=== PATIENT | male | born 1950 | race Caucasian/White ===

== ENCOUNTER → 2018-05-26 10:51 | Outpatient (CLI) | payer MEDICARE, OTHER, SELFPAY ==
[2018-05-26 11:59] LABS: Alanine Aminotransferase 20 IU/L (21-72); Albumin 4.7 g/dL (3.5-5.0); Albumin Globulin Ratio 1.1 (1.0-2.8); Alkaline Phosphatase 107 U/L (38-126); Aspartate Aminotransferase 28 IU/L (17-59); Bilirubin Total 0.3 mg/dL (0.2-1.3); Bilirubin Unconjugated 0.1 mg/dL (0.0-1.1); Globulin 4.4 g/dL (1.7-4.1); HEMOLYSIS < 15 (0-50); Total Protein 9.1 g/dL (6.3-8.2)
== END ==
PROVIDERS: Family Provider Internal Medicine; PCP Internal Medicine; Visit Provider Internal Medicine Critical Care Medicine
DX: Z79.899 Other long term (current) drug therapy (principal); J84.9 Interstitial pulmonary disease, unspecified
CPT/HCPCS: 36415; 80076

== ENCOUNTER → 2018-06-16 09:04 | Outpatient (CLI) | payer MEDICARE, OTHER, SELFPAY ==
[2018-06-19 12:57] LABS: Lipoprofile NMR SEE SEPERATE REPORT
== END ==
PROVIDERS: Family Provider Internal Medicine; PCP Internal Medicine; Visit Provider Specialist
DX: E78.5 Hyperlipidemia, unspecified (principal); I25.10 Atherosclerotic heart disease of native coronary artery without angina pectoris
CPT/HCPCS: 36415; 83704

== ENCOUNTER → 2018-06-26 09:40 | Outpatient (CLI) | payer MEDICARE, OTHER, SELFPAY ==
[2018-06-26 10:33] LABS: Alanine Aminotransferase 27 IU/L (21-72); Albumin 4.2 g/dL (3.5-5.0); Albumin Globulin Ratio 1.2 (1.0-2.8); Alkaline Phosphatase 92 U/L (38-126); Aspartate Aminotransferase 32 IU/L (17-59); Bilirubin Total 0.4 mg/dL (0.2-1.3); Blood Urea Nitrogen 12 mg/dL (9-20); Calcium 9.1 mg/dL (8.4-10.2); Carbon Dioxide 28 mmol/L (22-32); Chloride 104 mmol/L (98-107); Estimated Glomerular Filt Rate > 60.0 mL/min (>60); Globulin 3.6 g/dL (1.7-4.1); Glucose 85 mg/dL (80-110); HEMOLYSIS < 15 (0-50); Potassium 3.9 mmol/L (3.4-5.1); Sodium 141 mmol/L (137-145); Total Protein 7.8 g/dL (6.3-8.2)
== END ==
PROVIDERS: Family Provider Internal Medicine; PCP Internal Medicine; Visit Provider Specialist
DX: I25.10 Atherosclerotic heart disease of native coronary artery without angina pectoris (principal)
CPT/HCPCS: 36415; 80053

== ENCOUNTER → 2018-07-17 11:53 | Outpatient (CLI) | payer MEDICARE, OTHER, SELFPAY ==
[2018-07-17 13:00] LABS: Alanine Aminotransferase 29 IU/L (21-72); Albumin 4.5 g/dL (3.5-5.0); Albumin Globulin Ratio 1.3 (1.0-2.8); Alkaline Phosphatase 78 U/L (38-126); Aspartate Aminotransferase 26 IU/L (17-59); Bilirubin Total 0.3 mg/dL (0.2-1.3); Bilirubin Unconjugated 0.1 mg/dL (0.0-1.1); Globulin 3.5 g/dL (1.7-4.1); HEMOLYSIS < 15 (0-50)
== END ==
PROVIDERS: PCP Internal Medicine; Visit Provider Internal Medicine Critical Care Medicine
DX: J84.9 Interstitial pulmonary disease, unspecified (principal)
CPT/HCPCS: 36415; 80076

== ENCOUNTER → 2018-08-15 11:50 | Outpatient (CLI) | payer MEDICARE, OTHER, SELFPAY ==
[2018-08-15 12:53] LABS: Alanine Aminotransferase 29 IU/L (21-72); Albumin 4.4 g/dL (3.5-5.0); Albumin Globulin Ratio 1.2 (1.0-2.8); Alkaline Phosphatase 82 U/L (38-126); Aspartate Aminotransferase 25 IU/L (17-59); Bilirubin Total 0.4 mg/dL (0.2-1.3); Bilirubin Unconjugated 0.2 mg/dL (0.0-1.1); Globulin 3.7 g/dL (1.7-4.1); HEMOLYSIS < 15 (0-50); Total Protein 8.1 g/dL (6.3-8.2)
== END ==
PROVIDERS: PCP Internal Medicine; Visit Provider Internal Medicine Critical Care Medicine
DX: Z79.899 Other long term (current) drug therapy (principal); J84.9 Interstitial pulmonary disease, unspecified
CPT/HCPCS: 36415; 80076

== ENCOUNTER → 2018-09-16 13:40 | Outpatient (CLI) | payer MEDICARE, OTHER, SELFPAY ==
[2018-09-16 14:52] LABS: Alanine Aminotransferase 26 IU/L (21-72); Albumin 4.5 g/dL (3.5-5.0); Albumin Globulin Ratio 1.3 (1.0-2.8); Alkaline Phosphatase 89 U/L (38-126); Aspartate Aminotransferase 28 IU/L (17-59); Bilirubin Total 0.4 mg/dL (0.2-1.3); Bilirubin Unconjugated 0.2 mg/dL (0.0-1.1); Globulin 3.5 g/dL (1.7-4.1); HEMOLYSIS 22 (0-50)
== END ==
PROVIDERS: Family Provider Internal Medicine; PCP Internal Medicine; Visit Provider Internal Medicine Critical Care Medicine
DX: Z79.899 Other long term (current) drug therapy (principal); J84.9 Interstitial pulmonary disease, unspecified
CPT/HCPCS: 36415; 80076

== ENCOUNTER → 2018-10-15 11:42 | Outpatient (CLI) | payer MEDICARE, OTHER, SELFPAY ==
[2018-10-15 12:33] LABS: Alanine Aminotransferase 27 IU/L (21-72); Albumin 4.6 g/dL (3.5-5.0); Albumin Globulin Ratio 1.2 (1.0-2.8); Alkaline Phosphatase 114 U/L (38-126); Aspartate Aminotransferase 31 IU/L (17-59); Bilirubin Total 0.4 mg/dL (0.2-1.3); Bilirubin Unconjugated 0.3 mg/dL (0.0-1.1); Globulin 3.8 g/dL (1.7-4.1); HEMOLYSIS < 15 (0-50); Total Protein 8.4 g/dL (6.3-8.2)
== END ==
PROVIDERS: Family Provider Internal Medicine; PCP Internal Medicine; Visit Provider Internal Medicine Critical Care Medicine
DX: J84.9 Interstitial pulmonary disease, unspecified (principal); Z79.899 Other long term (current) drug therapy
CPT/HCPCS: 36415; 80076

== ENCOUNTER → 2018-11-21 14:14 | Outpatient (CLI) | payer MEDICARE, OTHER, SELFPAY ==
[2018-11-21 15:49] LABS: Alanine Aminotransferase 19 IU/L (21-72); Albumin 4.4 g/dL (3.5-5.0); Albumin Globulin Ratio 1.2 (1.0-2.8); Alkaline Phosphatase 109 U/L (38-126); Aspartate Aminotransferase 25 IU/L (17-59); Bilirubin Total 0.4 mg/dL (0.2-1.3); Bilirubin Unconjugated 0.3 mg/dL (0.0-1.1); Globulin 3.6 g/dL (1.7-4.1); HEMOLYSIS < 15 (0-50)
== END ==
PROVIDERS: PCP Internal Medicine; Visit Provider Internal Medicine Critical Care Medicine
DX: J84.9 Interstitial pulmonary disease, unspecified (principal)
CPT/HCPCS: 36415; 80076

== ENCOUNTER → 2019-02-17 12:07 | Outpatient (CLI) | payer MEDICARE, OTHER, SELFPAY ==
[2019-02-17 12:36] LABS: Add Manual Diff / Slide Review NO; Basophils Absolute Auto 100 /uL (0-100); Eosinophils Absolute Auto 300 /uL (0-450); Eosinophils Percent Auto 3.3 % (2-4); Hematocrit 43.8 % (41-53); Hemoglobin 14.8 g/dL (13.5-17.5); Lymphocytes Absolute Auto 2600 /uL (1100-4500); Lymphocytes Percent Auto 26.1 % (25-40); Mean Corpuscular HGB Conc 33.9 % (30-36); Mean Corpuscular Hemoglobin 32.7 PG (26-34); Mean Corpuscular Volume 96.3 fL (80-100); Monocytes Absolute Auto 900 /uL (0-900); Monocytes Percent Auto 9.3 % (3-14); Neutrophils Absolute Auto 6100 /uL (1500-7000); Neutrophils Percent Auto 60.3 % (50-75); Platelet Count 263 X10^3/uL (150-400); Red Blood Cell Count 4.54 X10^6/uL (4.5-5.9); Red Cell Distribution Width 14.3 % (11.6-14.8)
[2019-02-17 13:25] LABS: Alanine Aminotransferase 22 IU/L (21-72); Albumin 4.4 g/dL (3.5-5.0); Albumin Globulin Ratio 1.2 (1.0-2.8); Alkaline Phosphatase 102 U/L (38-126); Aspartate Aminotransferase 28 IU/L (17-59); BUN Creatinine Ratio 12.2 (6-22); Bilirubin Total 0.5 mg/dL (0.2-1.3); Bilirubin Unconjugated 0.2 mg/dL (0.0-1.1); Blood Urea Nitrogen 11 mg/dL (9-20); Calcium 9.9 mg/dL (8.4-10.2); Carbon Dioxide 29 mmol/L (22-32); Chloride 101 mmol/L (98-107); Estimated Glomerular Filt Rate > 60.0 mL/min (>60); Globulin 3.7 g/dL (1.7-4.1); Glucose 90 mg/dL (80-110); HEMOLYSIS < 15 (0-50); Potassium 4.2 mmol/L (3.4-5.1); Sodium 140 mmol/L (137-145); Total Protein 8.1 g/dL (6.3-8.2)
[2019-02-19 08:21] LABS: Lipoprofile NMR SEE SEPERATE REPORT
== END ==
PROVIDERS: Family Provider Internal Medicine Critical Care Medicine; PCP Internal Medicine; Visit Provider Specialist
DX: Z79.899 Other long term (current) drug therapy (principal); J84.9 Interstitial pulmonary disease, unspecified; I25.10 Atherosclerotic heart disease of native coronary artery without angina pectoris; R00.1 Bradycardia, unspecified; E78.2 Mixed hyperlipidemia
CPT/HCPCS: 36415; 80053; 80076; 83704; 85025

== ENCOUNTER → 2019-03-24 11:53 | Outpatient (CLI) | payer MEDICARE, OTHER, SELFPAY ==
[2019-03-24 13:48] LABS: Alanine Aminotransferase 17 IU/L (21-72); Albumin 4.4 g/dL (3.5-5.0); Albumin Globulin Ratio 1.2 (1.0-2.8); Alkaline Phosphatase 105 U/L (38-126); Aspartate Aminotransferase 28 IU/L (17-59); Bilirubin Total 0.6 mg/dL (0.2-1.3); Bilirubin Unconjugated 0.4 mg/dL (0.0-1.1); Globulin 3.6 g/dL (1.7-4.1); HEMOLYSIS < 15 (0-50)
== END ==
PROVIDERS: PCP Internal Medicine; Visit Provider Internal Medicine Critical Care Medicine
DX: Z79.899 Other long term (current) drug therapy (principal); J84.9 Interstitial pulmonary disease, unspecified
CPT/HCPCS: 36415; 80076

== ENCOUNTER → 2019-03-27 10:43 | Outpatient (CLI) | payer MEDICARE, OTHER, SELFPAY ==
--- NOTE | 2019-03-27 | DI.NM.S_ITS ---
PROCEDURE: NM TOLU PERF SPECT R&S PHARM Rest and pharmacological stress myocardial perfusion SPECT with gated imaging and ejection fraction RADIOPHARMACEUTICAL: 27.1 mCi Tc-99m tetrafosmin IV at rest and 24.9 mCi Tc-99m tetrafosmin IV at peak effect of pharmacological stress. Qfb-[id number]-[id number] was performed. INDICATIONS: Atherosclerotic heart disease of [place] coronary artery TECHNIQUE: Radiopharmaceutical was injected at peak stress test, and also at rest. SPECT images were obtained. SPECT myocardial perfusion images were displayed in short axis, horizontal long axis, and vertical long axis views. Gated images were reviewed using [employer] software. COMPARISON: None. CARDIAC STRESS: A pharmacologic stress test was performed under the supervision of an attending staff, using an infusion of lexiscan 0.4mg IV X1. Hemodynamic data: There is normal blood pressure and heart rate response to pharmacologic stress. Symptoms: The patient denied anginal chest pain. Aminophylline: none EKG: No diagnostic changes of ischemia; no ectopy. FINDINGS: Raw data: There is good myocardial uptake of radiotracer. No significant motion artifacts. Mval-we-gsasi ratio is 0.28 (normal is less than 0.38 for tetrafosmin tracer). Left ventricle function: Gated images demonstrate normal left ventricular wall thickening. No segmental wall motion abnormalities. No transient ischemic dilation; TID is 0.88 (normal less than 1.3). Left ventricle resting end diastolic volume is 76 mL. Left ventricle stress ejection fraction is 78%; normal range is above 45%. Myocardial perfusion: There is normal distribution of activity in the right and left ventricular myocardium. No fixed or reversible perfusion defects. IMPRESSION: low risk, normal pharmaceutical nuclear stress test 1) No perfusion evidence of ischemia or infarction. 2) Normal left ventricular size, wall motion, and systolic function (EF post stress 78%). 3) No ECG evidence of ischemia. 4) No angina during the study. 5) No prior nuclear stress test available for comparison. Dictated by: Regina March MD on 03/30/2019 at 12:29 Approved by: Regina March MD on 03/30/2019 at 12:31
--- NOTE | 2019-03-27 14:42 | P.PCN_ITS ---
Cardiac Stress Test Report Referral & Results Date Patient Seen: 03/27/19 Time Patient Seen: 12:00 Requesting provider: Selene Partida Indication: Coronary artery disease Rest ECG: Normal sinus rhythm Procedure Note: After both written and verbal informed consent the patient had an IV started by the diagnostic imaging RN and then was hooked up to the treadmill monitoring system. The patient was placed on the treadmill at 1 mile an hour with no elevation and was then injected with the Ev scan material. The Cardiolite was then immediately administered. The patient spent an additional 2-3 minutes on the treadmill before being returned to the [facility] in the supine position. The patient had a normal response to all infused materials. Impression: Successful Ev protocol. Will await perfusion imaging. Please note: Actual ECG tracings can be found in the PACS system.
== END ==
PROVIDERS: PCP Internal Medicine; Visit Provider Nurse Practitioner
DX: I25.10 Atherosclerotic heart disease of native coronary artery without angina pectoris (principal)
CPT/HCPCS: 78452; 93016; 93017; 93018; A9502; J2785

== ENCOUNTER → 2019-04-24 11:32 | Outpatient (CLI) | payer MEDICARE, OTHER, SELFPAY ==
[2019-04-24 13:21] LABS: Alanine Aminotransferase 21 IU/L (<50); Albumin 4.6 g/dL (3.5-5.0); Albumin Globulin Ratio 1.3 (1.0-2.8); Alkaline Phosphatase 99 U/L (38-126); Aspartate Aminotransferase 30 IU/L (17-59); Bilirubin Total 0.4 mg/dL (0.2-1.3); Bilirubin Unconjugated 0.3 mg/dL (0.0-1.1); Globulin 3.5 g/dL (1.7-4.1); HEMOLYSIS < 15 (0-50); Total Protein 8.1 g/dL (6.3-8.2)
== END ==
PROVIDERS: PCP Internal Medicine; Visit Provider Internal Medicine Critical Care Medicine
DX: Z79.899 Other long term (current) drug therapy (principal)
CPT/HCPCS: 36415; 80076

== ENCOUNTER → 2019-06-11 14:14 | Outpatient (CLI) | payer MEDICARE, OTHER, SELFPAY ==
[2019-06-11 15:52] LABS: Alanine Aminotransferase 24 IU/L (<50); Albumin 4.7 g/dL (3.5-5.0); Albumin Globulin Ratio 1.3 (1.0-2.8); Alkaline Phosphatase 106 U/L (38-126); Aspartate Aminotransferase 29 IU/L (17-59); Bilirubin Total 0.3 mg/dL (0.2-1.3); Bilirubin Unconjugated 0.2 mg/dL (0.0-1.1); Globulin 3.6 g/dL (1.7-4.1); HEMOLYSIS < 15 (0-50); Total Protein 8.3 g/dL (6.3-8.2)
== END ==
PROVIDERS: PCP Internal Medicine; Visit Provider Internal Medicine Critical Care Medicine
DX: Z79.890 Hormone replacement therapy (principal)
CPT/HCPCS: 36415; 80076

== ENCOUNTER → 2019-07-13 14:50 | Outpatient (CLI) | payer MEDICARE, OTHER, SELFPAY ==
[2019-07-13 16:56] LABS: Alanine Aminotransferase 24 IU/L (<50); Albumin 4.1 g/dL (3.5-5.0); Albumin Globulin Ratio 1.2 (1.0-2.8); Alkaline Phosphatase 82 U/L (38-126); Aspartate Aminotransferase 29 IU/L (17-59); Bilirubin Total 0.3 mg/dL (0.2-1.3); Bilirubin Unconjugated 0.2 mg/dL (0.0-1.1); Globulin 3.5 g/dL (1.7-4.1); HEMOLYSIS < 15 (0-50); Total Protein 7.6 g/dL (6.3-8.2)
== END ==
PROVIDERS: PCP Internal Medicine; Referring Provider Internal Medicine Critical Care Medicine; Visit Provider Internal Medicine Critical Care Medicine
DX: Z79.890 Hormone replacement therapy (principal)
CPT/HCPCS: 36415; 80076

== ENCOUNTER → 2019-08-14 09:42 | Outpatient (CLI) | payer MEDICARE, OTHER, SELFPAY ==
[2019-08-14 10:50] LABS: Alanine Aminotransferase 14 IU/L (<50); Albumin 4.1 g/dL (3.5-5.0); Albumin Globulin Ratio 1.2 (1.0-2.8); Alkaline Phosphatase 83 U/L (38-126); Aspartate Aminotransferase 25 IU/L (17-59); Bilirubin Total 0.3 mg/dL (0.2-1.3); Bilirubin Unconjugated 0.3 mg/dL (0.0-1.1); Blood Urea Nitrogen 13 mg/dL (9-20); Calcium 9.9 mg/dL (8.4-10.2); Carbon Dioxide 27 mmol/L (22-32); Chloride 105 mmol/L (98-107); Estimated Glomerular Filt Rate > 60.0 mL/min (>60); Globulin 3.5 g/dL (1.7-4.1); Glucose 86 mg/dL (80-110); HEMOLYSIS < 15 (0-50); Potassium 4.9 mmol/L (3.4-5.1); Sodium 140 mmol/L (137-145); Total Protein 7.6 g/dL (6.3-8.2)
== END ==
PROVIDERS: PCP Internal Medicine; Referring Provider Internal Medicine Critical Care Medicine; Visit Provider Specialist
DX: E78.5 Hyperlipidemia, unspecified (principal); Z79.899 Other long term (current) drug therapy
CPT/HCPCS: 36415; 80053; 80076

== ENCOUNTER → 2019-08-25 07:55 | Outpatient (CLI) | payer MEDICARE, OTHER, SELFPAY ==
[2019-08-27 08:27] LABS: Cholesterol, Total 133 mg/dL (100-199); HDL-Cholesterol 24 mg/dL (>39); HDL-Particle (Total) 16.7 umol/L (>=30.5); Historical Reading Comment: (.); LDL Particle 1168 nmol/L (<1000); LDL Size 20.2 nm (>20.5); LDL-Cholsterol 77 mg/dL (0-99); LP-IR Score 59 (<=45); Small LDL- Particle 746 nmol/L (<=527); Triglycerides 160 mg/dL (0-149)
== END ==
PROVIDERS: PCP Internal Medicine; Referring Provider Specialist; Visit Provider Specialist
DX: E78.5 Hyperlipidemia, unspecified (principal)
CPT/HCPCS: 36415; 80061; 83704

== ENCOUNTER → 2020-01-21 12:23 | Outpatient (CLI) | payer MEDICARE, OTHER, SELFPAY ==
[2020-01-21 13:42] LABS: Alanine Aminotransferase 17 IU/L (<50); Albumin 4.4 g/dL (3.5-5.0); Albumin Globulin Ratio 1.3 (1.0-2.8); Alkaline Phosphatase 89 U/L (38-126); Aspartate Aminotransferase 30 IU/L (17-59); Bilirubin Total 0.5 mg/dL (0.2-1.3); Bilirubin Unconjugated 0.4 mg/dL (0.0-1.1); Globulin 3.4 g/dL (1.7-4.1); HEMOLYSIS < 15 (0-50); Total Protein 7.8 g/dL (6.3-8.2)
== END ==
PROVIDERS: PCP Internal Medicine; Referring Provider Internal Medicine Critical Care Medicine; Visit Provider Internal Medicine Critical Care Medicine
DX: Z79.899 Other long term (current) drug therapy (principal); J84.9 Interstitial pulmonary disease, unspecified
CPT/HCPCS: 36415; 80076

== ENCOUNTER → 2020-02-26 11:22 | Outpatient (CLI) | payer MEDICARE, OTHER, SELFPAY ==
[2020-02-28 15:35] LABS: COVID19 Sendout Not Detected (Not Detect)
== END ==
PROVIDERS: PCP Internal Medicine; Visit Provider Physician Assistant
DX: Z11.59 Encounter for screening for other viral diseases (principal)
CPT/HCPCS: 87635

== ENCOUNTER → 2020-02-26 11:37 | Outpatient (CLI) | payer MEDICARE, OTHER, SELFPAY ==
[2020-02-26 12:44] LABS: Alanine Aminotransferase 21 IU/L (<50); Albumin 4.4 g/dL (3.5-5.0); Albumin Globulin Ratio 1.2 (1.0-2.8); Alkaline Phosphatase 88 U/L (38-126); Aspartate Aminotransferase 30 IU/L (17-59); Bilirubin Total 0.5 mg/dL (0.2-1.3); Bilirubin Unconjugated 0.4 mg/dL (0.0-1.1); Globulin 3.8 g/dL (1.7-4.1); HEMOLYSIS < 15 (0-50); Total Protein 8.2 g/dL (6.3-8.2)
== END ==
PROVIDERS: PCP Internal Medicine; Referring Provider Internal Medicine Critical Care Medicine; Visit Provider Internal Medicine Critical Care Medicine
DX: Z11.59 Encounter for screening for other viral diseases (principal); J84.9 Interstitial pulmonary disease, unspecified; Z79.899 Other long term (current) drug therapy
CPT/HCPCS: 36415; 80076; 87635

== ENCOUNTER → 2020-05-11 09:43 | Outpatient (CLI) | payer MEDICARE, OTHER, SELFPAY ==
[2020-05-11 10:54] LABS: Alanine Aminotransferase 23 IU/L (<50); Albumin Globulin Ratio 1.1 (1.0-2.8); Alkaline Phosphatase 100 U/L (38-126); Aspartate Aminotransferase 36 IU/L (17-59); Bilirubin Total 0.6 mg/dL (0.2-1.3); Bilirubin Unconjugated 0.5 mg/dL (0.0-1.1); Globulin 4.4 g/dL (1.7-4.1); HEMOLYSIS < 15 (0-50); Total Protein 9.4 g/dL (6.3-8.2)
[2020-05-11 10:58] LABS: Alanine Aminotransferase 22 IU/L (<50); Albumin 4.8 g/dL (3.5-5.0); Albumin Globulin Ratio 1.1 (1.0-2.8); Alkaline Phosphatase 102 U/L (38-126); Aspartate Aminotransferase 35 IU/L (17-59); BUN Creatinine Ratio 13.5 (6-22); Bilirubin Total 0.6 mg/dL (0.2-1.3); Blood Urea Nitrogen 15 mg/dL (9-20); Calcium 10.3 mg/dL (8.4-10.2); Carbon Dioxide 30 mmol/L (22-32); Chloride 104 mmol/L (98-107); Estimated Glomerular Filt Rate > 60.0 mL/min (>60); Globulin 4.2 g/dL (1.7-4.1); Glucose 103 mg/dL (80-110); HEMOLYSIS < 15 (0-50); Sodium 141 mmol/L (137-145)
[2020-05-11 11:06] LABS: Potassium 5.4 mmol/L (3.4-5.1)
== END ==
PROVIDERS: PCP Internal Medicine; Referring Provider Internal Medicine Critical Care Medicine; Visit Provider Specialist
DX: J84.9 Interstitial pulmonary disease, unspecified (principal); E78.5 Hyperlipidemia, unspecified
CPT/HCPCS: 36415; 80053; 80061; 80076; 83704

== ENCOUNTER → 2020-06-27 09:52 | Outpatient (CLI) | payer MEDICARE, OTHER, SELFPAY ==
[2020-06-27 10:33] LABS: Alanine Aminotransferase 26 IU/L (<50); Albumin 4.4 g/dL (3.5-5.0); Albumin Globulin Ratio 1.2 (1.0-2.8); Alkaline Phosphatase 84 U/L (38-126); Aspartate Aminotransferase 33 IU/L (17-59); Bilirubin Total 0.3 mg/dL (0.2-1.3); Bilirubin Unconjugated 0.3 mg/dL (0.0-1.1); Globulin 3.6 g/dL (1.7-4.1); HEMOLYSIS < 15 (0-50)
== END ==
PROVIDERS: PCP Internal Medicine; Referring Provider Internal Medicine Critical Care Medicine; Visit Provider Internal Medicine Critical Care Medicine
DX: J84.9 Interstitial pulmonary disease, unspecified (principal)
CPT/HCPCS: 36415; 80076

== ENCOUNTER → 2020-07-06 14:02 | Outpatient (CLI) | payer MEDICARE, OTHER, SELFPAY ==
[2020-07-06] MEDS: COVID-19 VACC #1, MRNA(MOD) 100 MCG/0.5 ML VIAL IM (14:08)
== END ==
PROVIDERS: PCP Internal Medicine; Visit Provider Internal Medicine
DX: Z23 Encounter for immunization (principal)
CPT/HCPCS: 0011A; 91301

== ENCOUNTER → 2020-08-03 14:10 | Outpatient (CLI) | payer MEDICARE, OTHER, SELFPAY ==
[2020-08-03] MEDS: COVID-19 VACC #2, MRNA(MOD) 100 MCG/0.5 ML VIAL IM (14:14)
== END ==
PROVIDERS: PCP Internal Medicine; Visit Provider Internal Medicine
DX: Z23 Encounter for immunization (principal)
CPT/HCPCS: 0012A; 91301

== ENCOUNTER → 2020-08-25 14:03 | Outpatient (CLI) | payer MEDICARE, OTHER, SELFPAY ==
[2020-08-25 16:00] LABS: Alanine Aminotransferase 27 IU/L (<50); Albumin 4.3 g/dL (3.5-5.0); Albumin Globulin Ratio 1.4 (1.0-2.8); Alkaline Phosphatase 81 U/L (38-126); Aspartate Aminotransferase 36 IU/L (17-59); Bilirubin Total 0.3 mg/dL (0.2-1.3); Bilirubin Unconjugated 0.2 mg/dL (0.0-1.1); HEMOLYSIS < 15 (0-50); Total Protein 7.3 g/dL (6.3-8.2)
== END ==
PROVIDERS: PCP Internal Medicine; Referring Provider Internal Medicine Critical Care Medicine; Visit Provider Internal Medicine Critical Care Medicine
DX: J84.9 Interstitial pulmonary disease, unspecified (principal); Z79.899 Other long term (current) drug therapy
CPT/HCPCS: 36415; 80076

== ENCOUNTER 2020-09-17 15:14 | Emergency (ER) | payer MEDICARE, OTHER, SELFPAY ==
[2020-09-17 15:28] VITALS: BP 123/73; PULSE 68; RESP 18; TEMP 36.3; O2SAT 96
[2020-09-17] MEDS: TET,DIPH,PERTUSS(ACELL),VAC/PF 0.5 ML SYRINGE IM (18:07)
--- NOTE | 2020-09-17 18:07 | ED.WOUNDLAC ---
HPI - Wound/Laceration General Chief Complaint: Wound/Laceration Stated Complaint: chain saw injury, left hand Time Seen by Provider: 09/17/20 15:17 Source: patient Mode of arrival: Ambulatory History of Present Illness HPI narrative: This is a 69-year-old male who comes to the emergency department with complaint of chainsaw injury to his left hand. Patient states that he was using his chainsaw. He is not sure exactly what happened but the chainsaw jumped back and hit his left hand. Patient states he lacerations across all 5 fingers the left hand. He denies any weakness, numbness or tingling he states he has full range of motion. Patient states this happened about 230 this afternoon. He does not believe his tetanus is up-to-date. He states that he does have idiopathic pulmonary fibrosis and that he takes multiple medications but does not know the names of all of them. He denies any allergies to medications. He denies any anticoagulant. Related Data Previous Rx's Medication Instructions Recorded cephalexin 500 mg PO Q6H 10 Days #40 cap 09/17/20 Allergies Allergy/AdvReac Type Severity Reaction Status Date / Time No Known Drug Allergies Allergy Verified 09/17/20 17:47 Review of Systems Review of Systems ROS Unobtainable: All systems reviewed & are unremarkable except as noted in HPI and below Patient History Medical History (Updated 09/17/20 @ 18:22 by Ana Yi DO) Idiopathic pulmonary fibrosis Social History Smoking Status: Never smoker Smoking Status: Never smoker alcohol intake frequency: holidays/special occasions only Substance Use Type: does not use Exam Narrative Exam Narrative: GENERAL: Alert and oriented x three, thin, well-appearing elderly male. HEENT: Head normocephalic, atraumatic, EOMI, pupils reactive, face symmetric, moist mucous membranes NECK: Supple, full range of motion CARDIOVASCULAR: Regular rate and rhythm without murmurs, rubs or gallops. RESPIRATORY: Breath sounds equal bilaterally, no wheezes rales or rhonchi. ABDOMEN: Soft, nontender. Normoactive bowel sounds all 4 quadrants. No guarding or rebound, rigidity, no mass EXTREMITIES: Normal range of motion, no clubbing or edema. Neurovascularly intact. Patient has full extension flexion of all 5 fingers, he has sensation throughout all 5 fingers on the palmar and dorsal side. Cap refill is less than 2 seconds. Patient has lacerations along base of all 5 fingers and across the distal joint of the thumb on the left hand. There is no obvious tendon or ligamentous injury involvement note on the lacerations although there is subcutaneous involvement. There is no active bleeding. finger 1-laceration of medial thumb and laceration of nail from distal end to 1/2 of nail. No subungual hematoma. finger 2-patient had oblique laceration that running from lateral side across palmar side of finger and has parallel lacerations running at each end with a flap on the radial side of finger. finger 3-1cm laceration of palmar based of finger at the crease of the PIP joint. Small avulsion flap in the middle. finger 4-small 0.5cm laceration at the base of the finger on the palmar side finger 5-stellate laceration on dorsum of the finger NEUROLOGICAL: Cranial nerves II through XII grossly intact. Moving all extremities SKIN: Warm, dry, no petechiae, no rashes or lesions other than described above. Initial Vital Signs Initial Vital Signs: Vital Signs Temperature 97.4 F L 09/17/20 15:28 Pulse Rate 68 09/17/20 15:28 Respiratory Rate 18 09/17/20 15:28 Blood Pressure 123/73 09/17/20 15:28 Pulse Oximetry 96 09/17/20 15:28 Procedures Laceration Repair Laceration 1: Site: hand Side (If applicable): left (1) Size (cm): 1.2 Description: irregular Depth: simple, single layer Local Anesthetic: lidocaine 1% Amount of anesthesia used (mL): 0.5 Pre-repair: wound explored, irrigated extensively and deep structures intact Skin layer closed with: nylon Size (cm): 4-0 Number of sutures: 1 Laceration 2: Site: hand Side (If applicable): left (finger 2) Size (cm): 3.7 Description: stellate, flap and irregular Depth: simple, single layer and involves muscle layer Local Anesthetic: lidocaine 1% Amount of anesthesia used (mL): 3.5 Pre-repair: wound explored and irrigated extensively Skin layer closed with: nylon Size (cm): 4-0 Number of sutures: 10 Technique: simple, interrupted Laceration 3: Site: hand Side (If applicable): left (finger 3) Description: flap and irregular Depth: simple, single layer Local Anesthetic: lidocaine 1% Amount of anesthesia used (mL): 1.5 Pre-repair: wound explored, irrigated extensively and deep structures intact Skin layer closed with: nylon Size (cm): 4-0 Number of sutures: 4 Technique: simple, interrupted Laceration 4: Site: hand Side (If applicable): left (finger 4) Size (cm): 0.5 Description: linear Depth: simple, single layer Local Anesthetic: lidocaine 1% Amount of anesthesia used (mL): 1 Pre-repair: wound explored, irrigated extensively and deep structures intact Skin layer closed with: nylon Size (cm): 4-0 Number of sutures: 1 Technique: simple, interrupted Laceration 5: Site: hand Side (If applicable): left (finger 5) Size (cm): 3.2 Description: stellate, flap and irregular Depth: simple, single layer and involves muscle layer Local Anesthetic: lidocaine 1% Amount of anesthesia used (mL): 3 Pre-repair: wound explored and irrigated extensively Skin layer closed with: nylon Size (cm): 4-0 Number of sutures: 7 Technique: simple, interrupted Course Orders Ordered: Discontinued Medications Hydrocodone Bitart/Acetaminophen (Hydrocodone/Acet 5/325 Tablet) 1 tab PO NOW ONE Stop: 09/17/20 18:17 Last Admin: 09/17/20 18:22 Dose: 1 tab Documented by: WILEY Hydrocodone Bitart/Acetaminophen (Hydrocodone/Acet 5/325 Prepack) 1 bottle MISC SEEINSTR ONE Stop: 09/17/20 20:13 Last Admin: 09/17/20 20:56 Dose: 1 bottle Documented by: PARK Cefazolin Sodium (Cephalexin 250 Mg Prepack) 1 bottle MISC SEEINSTR ONE Stop: 09/17/20 20:27 Last Admin: 09/17/20 20:55 Dose: 250 mg Documented by: PARK Diphtheria/Tetanus/Acell Pertussis (Tet,Diph,Pertuss(Acell),Vac/Pf 0.5 Ml Syringe) 0.5 ml IM .ONCE ONE Stop: 09/17/20 15:35 Last Admin: 09/17/20 17:47 Dose: Not Given Documented by: FREDERICK Diphtheria/Tetanus/Acell Pertussis (Tet,Diph,Pertuss(Acell),Vac/Pf 0.5 Ml Syringe) 0.5 ml IM .ONCE ONE Stop: 09/17/20 18:01 Last Admin: 09/17/20 18:07 Dose: 0.5 ml Documented by: WILEY Lidocaine HCl (Lidocaine 1% 20 Ml) 20 ml INJ INTRA-OP ONE Stop: 09/17/20 18:54 Last Admin: 09/17/20 19:57 Dose: 20 ml Documented by: PARK Lidocaine/Sodium Bicarbonate (Lido 1%/Sod Bicarb 8.4% (10ml) 10 Ml Syringe) 20 ml INJ NOW ONE Stop: 09/17/20 18:19 Last Admin: 09/17/20 19:59 Dose: 20 ml Documented by: PARK Vital Signs Vital signs: Vital Signs - 8 hr 09/17/20 21:03 Pulse Rate 68 Respiratory Rate 14 Blood Pressure 123/64 Pulse Oximetry 95 [facility] - Wound/Laceration Imaging Data Extremity x-ray #1: Radiologist's Impression: [address] [id number] ReportSigned Patient: Ozzy Alcazar RMR#: [id number]: [id number]:[id number]/Sex: 69 / MDate of Service: 09/17/20Loc: EDAccession Number: [id number] Procedure: XR hand LT min 3V Ordering Provider: Ana Yi D.O. PROCEDURE: XR HAND LT MIN 3V INDICATIONS: Trauma, chainsaw injury to left hand, lac to all five fingers. TECHNIQUE: 3 views of the hand(s) acquired. COMPARISON: None. FINDINGS: Bones: No fracture or dislocation. Soft tissues: No radiopaque foreign body. IMPRESSION: No acute finding. Dictated by: Leonard Hussein M.D. on 09/17/2020 at 18:32 Approved by: Leonard Hussein M.D. on 09/17/2020 at 18:32 [facility] Narrative Medical decision making narrative: This is a 69-year-old male with a chain saw injury to his left hand. Patient has lacerations on all 5 fingers. He is neurovascularly intact with good range of motion of all 5 fingers and sensation intact in all 5 fingers. Imaging does not show any bony involvement. Patient likely to have tendon or ligament involvement with good movement although there is risk. Patient was started on oral antibiotic. Lacerations were repaired although we did discuss there will be need to be some secondary intention for certain portions. Patient did have an injury to the left thumb nail although the nail is still intact for the majority and discussed aware a covered to allow the break in the nail to grow out. Patient was given referral for Orthopedic surgery and placed in the splint with some flexion as he is left-handed and to prevent any further injury or tearing of sutures. Discharge Plan Departure Patient Disposition: Home Clinical Impression: Laceration of multiple sites of left hand and fingers Qualifiers: Encounter type: initial encounter Qualified Code(s): S61.412A - Laceration without foreign body of left hand, initial encounter Instructions: DI for Laceration Repair -- Finger Activity Restrictions/Additional Instructions: Call to set up follow up with orthopedic surgery for recheck and wound care. Call Saturday. They office is here in [place] as well as [place] Take antibiotics until gone. Prescription sent to [facility] in [place]. You may take Tylenol up to a 1000 mg every 8 hours and or ibuprofen up to 800 mg every 8 hours as needed for pain. If this is adequate you may take a [place] 1 tablet every 6 hours. [place] does have acetaminophen or Tylenol. Do not take more than 3000 mg of Tylenol total in 24 hours. Narcotics can make you sleepy do not drive, perform hazardous activities or make any major decisions while taking them. They can also make you constipated to make sure to take a stool softener such as Colace or MiraLax once daily until stools are soft and regular. Wound Care: Keep wound(s) clean and dry. Wash twice daily with soap and water only. Do not use over the counter products (alcohol or peroxide)on the wounds unless instructed by a physician. You may use a topical antibiotic ointment to the affected areas twice daily. If wound condition worsens (increased/expanding redness, developing fluid blisters, or worsening pain), either contact your doctor for an urgent re-assessment , or return to the Emergency Department. Return to the Emergency Department for any new or worsening symptoms. Return to the ED, urgent care, or vist a primary care doctor for removal or suture or charles in 7-10 days. You have a total of 23 sutures in your hand. Finger 1-#1 sutures Finger 2-#10 Finger 3-#4 Finger 4-#1 Finger 5#7 Return if fever greater than 100.4 Fahrenheit, increased swelling, increasing pain, no weakness, numbness or tingling or worsening symptoms such as increased discharge or spreading redness. Prescriptions: New cephalexin 500 mg capsule 500 mg PO Q6H 10 Days Qty: 40 RF: 0 Referrals: Cande Crenshaw MD [Physician] - Leigh Mercedes MD [Primary Care Provider] -
--- NOTE | 2020-09-17 18:16 | DI.RAD.S_ITS ---
PROCEDURE: XR HAND LT MIN 3V INDICATIONS: Trauma, chainsaw injury to left hand, lac to all five fingers. TECHNIQUE: 3 views of the hand(s) acquired. COMPARISON: None. FINDINGS: Bones: No fracture or dislocation. Soft tissues: No radiopaque foreign body. IMPRESSION: No acute finding. Dictated by: Leonard Hussein M.D. on 09/17/2020 at 18:32 Approved by: Leonard Hussein M.D. on 09/17/2020 at 18:32
[2020-09-17] MEDS: HYDROCODONE/ACET 5/325 TABLET 1 TAB PO (18:22)
[2020-09-17 18:51] VITALS: BP 133/79; PULSE 66; O2SAT 98
[2020-09-17] MEDS: LIDOCAINE 1% 20 ML INJ (19:57)
[2020-09-17] MEDS: LIDO 1%/SOD BICARB 8.4% (10ML) 10 ML SYRINGE 20 ML INJ (19:59)
[2020-09-17] MEDS: cephALEXin 250 MG PREPACK 1 BOTTLE MISC (20:55)
[2020-09-17] MEDS: HYDROCODONE/ACET 5/325 PREPACK 1 BOTTLE MISC (20:56)
[2020-09-17 21:03] VITALS: BP 123/64; PULSE 68; RESP 14; O2SAT 95
== END 2020-09-17 21:04 | disposition home or self-care (01) ==
PROVIDERS: Emergency Provider Emergency Medicine; PCP Internal Medicine
DX: S61.412A Laceration without foreign body of left hand, initial encounter (principal); W29.3XXA Contact with powered garden and outdoor hand tools and machinery, initial encounter; Z23 Encounter for immunization
CPT/HCPCS: 12004; 73130; 90471; 99284; 90715

== ENCOUNTER → 2020-10-19 10:53 | Outpatient (CLI) | payer MEDICARE, OTHER, SELFPAY ==
[2020-10-19 13:47] LABS: Alanine Aminotransferase 21 IU/L (<50); Albumin 4.4 g/dL (3.5-5.0); Albumin Globulin Ratio 1.4 (1.0-2.8); Alkaline Phosphatase 85 U/L (38-126); Aspartate Aminotransferase 33 IU/L (17-59); Bilirubin Total 0.3 mg/dL (0.2-1.3); Bilirubin Unconjugated 0.2 mg/dL (0.0-1.1); Globulin 3.2 g/dL (1.7-4.1); HEMOLYSIS < 15 (0-50); Total Protein 7.6 g/dL (6.3-8.2)
== END ==
PROVIDERS: PCP Internal Medicine; Referring Provider Internal Medicine Critical Care Medicine; Visit Provider Internal Medicine Critical Care Medicine
DX: Z79.899 Other long term (current) drug therapy (principal); J84.9 Interstitial pulmonary disease, unspecified
CPT/HCPCS: 36415; 80076

== ENCOUNTER → 2021-01-27 09:39 | Outpatient (CLI) | payer MEDICARE, OTHER, SELFPAY ==
[2021-01-27 10:51] LABS: Alanine Aminotransferase 27 IU/L (<50); Albumin 4.4 g/dL (3.5-5.0); Albumin Globulin Ratio 1.3 (1.0-2.8); Alkaline Phosphatase 78 U/L (38-126); Aspartate Aminotransferase 36 IU/L (17-59); Bilirubin Total 0.3 mg/dL (0.2-1.3); Bilirubin Unconjugated 0.2 mg/dL (0.0-1.1); Globulin 3.5 g/dL (1.7-4.1); HEMOLYSIS < 15 (0-50); Total Protein 7.9 g/dL (6.3-8.2)
== END ==
PROVIDERS: PCP Internal Medicine; Referring Provider Internal Medicine Critical Care Medicine; Visit Provider Internal Medicine Critical Care Medicine
DX: J84.9 Interstitial pulmonary disease, unspecified (principal)
CPT/HCPCS: 36415; 80076

== ENCOUNTER → 2021-03-23 10:17 | Outpatient (CLI) | payer MEDICARE, OTHER, SELFPAY ==
[2021-03-23 12:13] LABS: Alanine Aminotransferase 28 IU/L (<50); Albumin 4.4 g/dL (3.5-5.0); Albumin Globulin Ratio 1.3 (1.0-2.8); Alkaline Phosphatase 92 U/L (38-126); Aspartate Aminotransferase 33 IU/L (17-59); BUN Creatinine Ratio 14.7 (6-22); Bilirubin Total 0.5 mg/dL (0.2-1.3); Blood Urea Nitrogen 16 mg/dL (9-20); Calcium 9.9 mg/dL (8.4-10.2); Carbon Dioxide 29 mmol/L (22-32); Chloride 102 mmol/L (98-107); Estimated Glomerular Filt Rate > 60.0 mL/min (>60); Globulin 3.4 g/dL (1.7-4.1); Glucose 84 mg/dL (80-110); HEMOLYSIS < 15 (0-50); Potassium 4.7 mmol/L (3.4-5.1); Sodium 140 mmol/L (137-145); Total Protein 7.8 g/dL (6.3-8.2)
[2021-03-27 03:32] LABS: Cholesterol, Total 114 mg/dL (100-199); HDL-Cholesterol 43 mg/dL (>39); HDL-Particle (Total) 25.1 umol/L (>=30.5); Historical Reading Comment: (.); LDL Particle 872 nmol/L (<1000); LDL Size 20.7 nm (>20.5); LDL-Cholsterol 55 mg/dL (0-99); LP-IR Score 34 (<=45); Small LDL- Particle 349 nmol/L (<=527); Triglycerides 81 mg/dL (0-149)
== END ==
PROVIDERS: PCP Internal Medicine; Referring Provider Specialist; Visit Provider Specialist
DX: E78.5 Hyperlipidemia, unspecified (principal); J84.9 Interstitial pulmonary disease, unspecified
CPT/HCPCS: 36415; 80053; 80061; 80076; 83704

== ENCOUNTER → 2021-03-23 10:20 | Outpatient (CLI) | payer MEDICARE, OTHER, SELFPAY ==
[2021-03-23 12:17] LABS: Alanine Aminotransferase 29 IU/L (<50); Albumin 4.5 g/dL (3.5-5.0); Albumin Globulin Ratio 1.3 (1.0-2.8); Alkaline Phosphatase 91 U/L (38-126); Aspartate Aminotransferase 34 IU/L (17-59); Bilirubin Total 0.5 mg/dL (0.2-1.3); Bilirubin Unconjugated 0.4 mg/dL (0.0-1.1); Globulin 3.4 g/dL (1.7-4.1); HEMOLYSIS < 15 (0-50); Total Protein 7.9 g/dL (6.3-8.2)
== END ==
PROVIDERS: PCP Internal Medicine; Referring Provider Internal Medicine Critical Care Medicine; Visit Provider Internal Medicine Critical Care Medicine
DX: J84.9 Interstitial pulmonary disease, unspecified (principal)
CPT/HCPCS: 36415; 80076

== ENCOUNTER 2021-03-27 10:16 | Emergency (ER) | payer MEDICARE, OTHER, SELFPAY ==
[2021-03-27 10:41] VITALS: BP 108/63; PULSE 65; RESP 18; TEMP 36.4; O2SAT 97; BMI 22.1
[2021-03-27 11:14] LABS: Bacteria Urine Moderate (10-30); Culture Indicated Urine Specimen Cultured; RBC Urine None Seen (0-5/HPF); WBC Urine 30-100/HPF (0-5/HPF)
--- NOTE | 2021-03-27 12:15 | ED_ITS ---
HPI - Male Genitourinary <Nanci Sierra PA-C - Last Filed: 03/27/21 14:18> General Chief complaint: Urogenital-Male Stated complaint: Urinary problem. Sent by [facility] Time Seen by Provider: 03/27/21 11:59 Source: patient Mode of arrival: Ambulatory Limitations: no limitations History of Present Illness HPI Narrative: 70-year-old male with past medical history idiopathic pulmonary fibrosis presents to the ED with 2 days of dysuria and urinary retention. Patient states that starting yesterday, he has had trouble urinating, feels like he is unable to empty his bladder, has burning pain while urinating. Denies that the urine has any blurred or is dark brown in color, but states that it appears cloudy. Patient takes the medications Esbriet for the pulmonary fibrosis, which according to patient has a immunosuppressing effect. Patient denies history of UTI. Patient denies history of cancers. Patient endorses a 20 lb weight loss over the last year, which he attributes to the medication, loss of appetite from it. Patient also states that he lost his sense of smell and taste several years ago, following which he has been eating less. Patient denies fever, chills, chest pain, shortness of breath, cough, nausea, vomiting, abdominal pain, flank pain, lightheadedness, dizziness, syncope. Related Data Home Medications Medication Instructions Recorded Confirmed esomeprazole magnesium 20 mg 20 mg PO DAILY 03/27/21 03/27/21 capsule,delayed release ezetimibe 10 mg tablet 10 mg PO DAILY 03/27/21 03/27/21 guaifenesin 400 mg tablet 400 mg PO QID 03/27/21 03/27/21 pirfenidone 267 mg tablet 534 mg PO TID 03/27/21 03/27/21 rosuvastatin 20 mg tablet 20 mg PO DAILY 03/27/21 03/27/21 Previous Rx's Medication Instructions Recorded cefpodoxime 100 mg tablet 100 mg PO BID 7 Days #14 tab 03/27/21 tamsulosin 0.4 mg capsule 0.4 mg PO DAILY #30 cap 03/27/21 Allergies Allergy/AdvReac Type Severity Reaction Status Date / Time No Known Drug Allergies Allergy Verified 03/27/21 10:41 Review of Systems <Nanci Sierra PA-C - Last Filed: 03/27/21 14:18> Constitutional Constitutional: Denies chills, Denies fatigue, Denies fever(s), Denies frequent falls, Denies lethargy and Denies weakness Eyes Eyes: Denies change in vision, Denies eye discharge, Denies irritation and Denies loss of vision ENT Ears, Nose, Mouth, and Throat: Denies change in voice, Denies dizziness, Denies neck pain, Denies sore throat and Denies throat swelling Cardiovascular Cardiovascular: Denies chest pain, Denies irregular heart rhythm, Denies lightheadedness, Denies palpitations, Denies dyspnea, Denies dyspnea on exertion and Denies orthopnea Respiratory Respiratory: Denies cough, Denies dyspnea, Denies dyspnea on exertion and Denies wheezing Gastrointestinal Gastrointestinal: Denies abdominal pain, Denies change in bowel habits, Denies diarrhea, Denies nausea and Denies vomiting Genitourinary Genitourinary: Denies hematuria, Reports oliguria, Reports difficulty urinating and Reports dysuria Musculoskeletal Musculoskeletal: Denies neck pain and Denies numbness Integumentary/Breasts Skin/Breast: Denies pruritus, Denies erythema, Denies rash and Denies wounds Neurologic Neurologic: Denies behavioral changes, Denies confusion, Denies dizziness, Denies frequent falls, Denies loss of vision, Denies numbness and Denies weakness Psychiatric Psychiatric: Denies anxiety, Denies behavioral changes, Denies confusion, Denies depression, Denies homicidal ideation and Denies suicidal ideation Endocrine Endocrine: Denies fatigue, Denies flushing and Denies palpitations Hematologic/Lymphatic Hematologic/Lymphatic: Denies easy bruising Allergic/Immunologic Allergic/Immunologic: Denies urticaria, Denies throat swelling and Denies wheezing Patient History <Nanci Sierra PA-C - Last Filed: 03/27/21 14:18> Medical History Idiopathic pulmonary fibrosis Social History Smoking Status: Never smoker Smoking Status: Never smoker alcohol intake frequency: holidays/special occasions only Substance Use Type: does not use Exam <Nanci Sierra PA-C - Last Filed: 03/27/21 14:18> Initial Vital Signs Initial Vital Signs: Vital Signs Temperature 97.5 F L 03/27/21 10:41 Pulse Rate 65 03/27/21 10:41 Respiratory Rate 18 03/27/21 10:41 Blood Pressure 108/63 03/27/21 10:41 Pulse Oximetry 97 03/27/21 10:41 Const General: cooperative and comfortable [facility] Head: normocephalic and atraumatic Ears: external ears normal and TM's normal bilaterally Nose: external nose normal and No nasal discharge Face and sinus: sinuses nontender, face symmetric, no sinus tenderness and No dry mucous membranes Mouth: oral mucosae normal and moist mucous membranes Teeth and gingiva: dentition normal Throat: tonsils normal and uvula midline Eyes General: appearance normal, both eyes and all related structures Eyelids: eyelids normal Conjunctivae: conjunctivae normal Sclera: sclerae normal Pupils: PERRL EOM: EOM intact bilaterally Neck Neck: normal visual inspection, trachea midline, No lymphadenopathy, No midline deformity and No JVD Lymphatic: No lymphedema Chest Chest: normal inspection of the chest Resp Effort & Inspection: normal respiratory effort, able to speak in complete sentences, no respiratory distress and no use of accessory muscles Auscultation: clear to auscultation bilaterally, no rales, no rhonchi and no wheezes Cardio Rate: regular rate Rhythm: regular rhythm Heart Sounds: no click, no gallops, no murmurs and no rubs Pulses: normal peripheral pulses GI Inspection: non-distended Palpation: soft, no hepatosplenomegaly, No guarding, No pulsatile mass and No tender Auscultation: normal bowel sounds Other: Abdomen is soft, nondistended. Mild tenderness to palpation of the suprapubic area. Negative CVA tenderness. Back/Spine/Pelvis Back: No CVA tenderness Cervical Spine: cervical ROM normal and No pain with cervical ROM Thoracic/Lumbar Spine: thoracic and lumbar spine normal to inspection Skin General: no rashes or lesions noted, No jaundice and No petechiae Neuro General: patient alert, patient oriented x3, gait normal and no focal motor def icits Speech: speech normal Extrem General: full ROM, no clubbing, cyanosis or edema, no pedal edema and no calf tenderness Psych Appearance: well kempt Mental Status: mental status grossly normal Attitude: cooperative Thought Content: normal and suicidality Judgment: judgment good <Rain Marks, DO - Last Filed: 03/31/21 08:42> Initial Vital Signs Initial Vital Signs: Vital Signs Temperature 97.5 F L 03/27/21 10:41 Pulse Rate 65 03/27/21 10:41 Respiratory Rate 18 03/27/21 10:41 Blood Pressure 108/63 03/27/21 10:41 Pulse Oximetry 97 03/27/21 10:41 Course <Nanci Sierra PA-C - Last Filed: 03/27/21 14:18> Course Course Narrative: Labs within normal limits. UA positive for UTI. Bladder scan showed 975 mL of retained urine. Patient catheterized, set up with leg bag, educated on use of the leg bag. Will discharge home with a prescription for cefpodoxime, tamsulosin, follow-up with urologist Dr. Das. ED return pr ecautions discussed. Orders Ordered: Discontinued Medications Ketorolac Tromethamine (Ketorolac 30 Mg/Ml Vial) 15 mg IV NOW ONE Stop: 03/27/21 12:25 Last Admin: 03/27/21 14:09 Dose: Not Given Documented by: KSWANSO Lidocaine HCl (Lidocaine 2% (Glydo) 6 Ml Gel) 6 ml TOP NOW ONE Stop: 03/27/21 12:45 Last Admin: 03/27/21 13:14 Dose: 6 ml Documented by: FAUSTOSON Vital Signs Vital signs: Vital Signs - 8 hr 03/27/21 10:41 03/27/21 12:33 03/27/21 12:34 Temperature 97.5 F L Pulse Rate 65 66 67 Respiratory Rate 18 Blood Pressure 108/63 123/72 Pulse Oximetry 97 99 99 03/27/21 14:10 Temperature Pulse Rate 77 Respiratory Rate 22 Blood Pressure 119/67 Pulse Oximetry 96 <Rain Marks DO - Last Filed: 03/31/21 08:42> Orders Ordered: Discontinued Medications Ketorolac Tromethamine (Ketorolac 30 Mg/Ml Vial) 15 mg IV NOW ONE Stop: 03/27/21 12:25 Last Admin: 03/27/21 14:09 Dose: Not Given Documented by: KSWANSO Lidocaine HCl (Lidocaine 2% (Glydo) 6 Ml Gel) 6 ml TOP NOW ONE Stop: 03/27/21 12:45 Last Admin: 03/27/21 13:14 Dose: 6 ml Documented by: FHUDSON Vital Signs Vital signs: Vital Signs - 8 hr 03/27/21 10:41 03/27/21 12:33 03/27/21 12:34 Temperature 97.5 F L Pulse Rate 65 66 67 Respiratory Rate 18 Blood Pressure 108/63 123/72 Pulse Oximetry 97 99 99 03/27/21 14:10 Temperature Pulse Rate 77 Respiratory Rate 22 Blood Pressure 119/67 Pulse Oximetry 96 MDM - Male Genitourinary <Nanci Sierra PA-C - Last Filed: 03/27/21 14:18> Lab Data Lab results narrative: Labs within normal limits. UA positive for UTI Result diagrams: 03/27/21 12:48 03/27/21 12:48 Labs: Lab Results 03/27/21 03/27/21 03/27/21 Range/Units 10:50 12:48 12:48 WBC 11.6 H (4.5-11.0) X10^3/uL RBC 4.47 L (4.5-5.9) X10^6/uL Hgb 14.8 (13.5-17.5) g/dL Hct 44.5 (41-53) % MCV 99.5 (80-100) fL MCH 33.1 (26-34) PG MCHC 33.3 (30-36) % RDW 14.2 (11.6-14.8) % Plt Count 233 (150-400) X10^3/uL Neut % (Auto) 71.1 (50-75) % Lymph % (Auto) 17.6 L (25-40) % [place] % (Auto) 8.5 (3-14) % Eos % (Auto) 2.1 (2-4) % Baso % (Auto) 0.7 (0-2) % Neut # (Auto) 8200 H (9394-6102) /uL Lymph # (Auto) 2000 (9742-8885) /uL [place] # (Auto) 1000 H (0-900) /uL Eos # (Auto) 200 (0-450) /uL Baso # (Auto) 100 (0-100) /uL Sodium 139 (137-145) mmol/L Potassium 4.1 (3.4-5.1) mmol/L Chloride 103 (98-107) mmol/L Carbon Dioxide 27 (22-32) mmol/L BUN 16 (9-20) mg/dL Creatinine 0.93 (0.66-1.25) mg/dL Estimated GFR > 60.0 (>60) mL/min BUN/Creatinine Ratio 17.2 (6-22) Glucose 95 (80-110) mg/dL Calcium 10.0 (8.4-10.2) mg/dL Total Bilirubin 0.5 (0.2-1.3) mg/dL AST 32 (17-59) IU/L ALT 24 (<50) IU/L Alkaline Phosphatase 93 (38-126) U/L Total Protein 8.6 H (6.3-8.2) g/dL Albumin 4.8 (3.5-5.0) g/dL Globulin 3.8 (1.7-4.1) g/dL Albumin/Globulin Ratio 1.3 (1.0-2.8) Lipase 60 (23-300) U/L Urine RBC None seen (0-5/HPF) Urine WBC 30-100/hpf H (0-5/HPF) Urine Bacteria Moderate (10-30) H (None) Ur Culture Indicated? Specimen cultured Urine Dip Bedside Urine Glucose Negative Bedside Urine Bilirubin - Negative Bedside Urine Ketone - Negative Urine Specific [place] 1.020 Bedside Urine Occult Blood ++ Bedside Urine pH 6.5 Bedside Urine Protein - Negative Bedside Urine Urobilinogen - Negative Bedside Urine Nitrite + Positive Bedside Urine Leukocytes ++ 125 Esterase MDM Narrative Medical decision making narrative: 70-year-old male with past medical history idiopathic pulmonary fibrosis presents to the ED with 2 days of dysuria and urinary retention. Patient states that starting yesterday, he has had trouble urinating, feels like he is unable to empty his bladder, has burning pain while urinating. Concern for UTI versus bacteremia. Will order labs, UA. Will reassess. <Rain Marks, DO - Last Filed: 03/31/21 08:42> Lab Data Labs: Lab Results 03/27/21 03/27/21 03/27/21 Range/Units 10:50 12:48 12:48 WBC 11.6 H (4.5-11.0) X10^3/uL RBC 4.47 L (4.5-5.9) X10^6/uL Hgb 14.8 (13.5-17.5) g/dL Hct 44.5 (41-53) % MCV 99.5 (80-100) fL MCH 33.1 (26-34) PG MCHC 33.3 (30-36) % RDW 14.2 (11.6-14.8) % Plt Count 233 (150-400) X10^3/uL Neut % (Auto) 71.1 (50-75) % Lymph % (Auto) 17.6 L (25-40) % [place] % (Auto) 8.5 (3-14) % Eos % (Auto) 2.1 (2-4) % Baso % (Auto) 0.7 (0-2) % Neut # (Auto) 8200 H (3857-4332) /uL Lymph # (Auto) 2000 (5728-5023) /uL [place] # (Auto) 1000 H (0-900) /uL Eos # (Auto) 200 (0-450) /uL Baso # (Auto) 100 (0-100) /uL Sodium 139 (137-145) mmol/L Potassium 4.1 (3.4-5.1) mmol/L Chloride 103 (98-107) mmol/L Carbon Dioxide 27 (22-32) mmol/L BUN 16 (9-20) mg/dL Creatinine 0.93 (0.66-1.25) mg/dL Estimated GFR > 60.0 (>60) mL/min BUN/Creatinine Ratio 17.2 (6-22) Glucose 95 (80-110) mg/dL Calcium 10.0 (8.4-10.2) mg/dL Total Bilirubin 0.5 (0.2-1.3) mg/dL AST 32 (17-59) IU/L ALT 24 (<50) IU/L Alkaline Phosphatase 93 (38-126) U/L Total Protein 8.6 H (6.3-8.2) g/dL Albumin 4.8 (3.5-5.0) g/dL Globulin 3.8 (1.7-4.1) g/dL Albumin/Globulin Ratio 1.3 (1.0-2.8) Lipase 60 (23-300) U/L Urine RBC None seen (0-5/HPF) Urine WBC 30-100/hpf H (0-5/HPF) Urine Bacteria Moderate (10-30) H (None) Ur Culture Indicated? Specimen cultured Urine Dip Bedside Urine Glucose Negative Bedside Urine Bilirubin - Negative Bedside Urine Ketone - Negative Urine Specific [place] 1.020 Bedside Urine Occult Blood ++ Bedside Urine pH 6.5 Bedside Urine Protein - Negative Bedside Urine Urobilinogen - Negative Bedside Urine Nitrite + Positive Bedside Urine Leukocytes ++ 125 Esterase Discharge Plan Departure Patient Disposition: Home Clinical Impression: Urinary tract infection Qualifiers: Urinary tract infection type: acute cystitis Hematuria presence: without hematuria Qualified Code(s): N30.00 - Acute cystitis without hematuria Instructions: DI for Urinary Tract Infection (UTI) Activity Restrictions/Additional Instructions: You were evaluated in the ED today for painful urination and trouble urinating. Your tests showed that you have a urinary tract infection, and that you were retaining 900 cc of urine which you are unable to pee out. Your blood tests were normal. You have been catheterized in order to drain the bladder. Complete your course of the antibiotic cefpodoxime. Please follow-up with urologist Dr. Das at [phone]. Please return to the ED if you find that urine is not draining into the bag or if you experience fever, chills, nausea, vomiting. Prescriptions: New cefpodoxime 100 mg tablet 100 mg PO BID 7 Days Qty: 14 RF: 0 tamsulosin 0.4 mg capsule 0.4 mg PO DAILY Qty: 30 RF: 0 No Action rosuvastatin 20 mg tablet 20 mg PO DAILY RF: 0 ezetimibe 10 mg tablet 10 mg PO DAILY RF: 0 pirfenidone 267 mg tablet 534 mg PO TID RF: 0 esomeprazole magnesium 20 mg capsule,delayed release(DR/EC) 20 mg PO DAILY RF: 0 guaifenesin 400 mg tablet 400 mg PO QID RF: 0 Referrals: Leigh Mercedes MD [Primary Care Provider] - <Rain Marks DO - Last Filed: 03/31/21 08:42> Cosign ED Attending Cosignature Attestation: I was immediately available in the department for consultation. Documentation has been reviewed. I agree with assessment and plan.
[2021-03-27 12:33] VITALS: PULSE 66; O2SAT 99
[2021-03-27 12:34] VITALS: BP 123/72; PULSE 67; O2SAT 99
--- NOTE | 2021-03-27 12:40 | PC.NURSE ---
Patient provided urinal, attempting to empty bladder at bedside
[2021-03-27 13:07] LABS: Alanine Aminotransferase 24 IU/L (<50); Albumin 4.8 g/dL (3.5-5.0); Albumin Globulin Ratio 1.3 (1.0-2.8); Alkaline Phosphatase 93 U/L (38-126); Aspartate Aminotransferase 32 IU/L (17-59); BUN Creatinine Ratio 17.2 (6-22); Bilirubin Total 0.5 mg/dL (0.2-1.3); Blood Urea Nitrogen 16 mg/dL (9-20); Carbon Dioxide 27 mmol/L (22-32); Chloride 103 mmol/L (98-107); Estimated Glomerular Filt Rate > 60.0 mL/min (>60); Globulin 3.8 g/dL (1.7-4.1); Glucose 95 mg/dL (80-110); HEMOLYSIS 16 (0-50); Lipase 60 U/L (23-300); Potassium 4.1 mmol/L (3.4-5.1); Sodium 139 mmol/L (137-145); Total Protein 8.6 g/dL (6.3-8.2)
[2021-03-27 13:13] LABS: Add Manual Diff / Slide Review NO; Basophils Absolute Auto 100 /uL (0-100); Basophils Percent Auto 0.7 % (0-2); Eosinophils Absolute Auto 200 /uL (0-450); Eosinophils Percent Auto 2.1 % (2-4); Hematocrit 44.5 % (41-53); Hemoglobin 14.8 g/dL (13.5-17.5); Lymphocytes Absolute Auto 2000 /uL (1100-4500); Lymphocytes Percent Auto 17.6 % (25-40); Mean Corpuscular HGB Conc 33.3 % (30-36); Mean Corpuscular Hemoglobin 33.1 PG (26-34); Mean Corpuscular Volume 99.5 fL (80-100); Monocytes Absolute Auto 1000 /uL (0-900); Monocytes Percent Auto 8.5 % (3-14); Neutrophils Absolute Auto 8200 /uL (1500-7000); Neutrophils Percent Auto 71.1 % (50-75); Platelet Count 233 X10^3/uL (150-400); Red Blood Cell Count 4.47 X10^6/uL (4.5-5.9); Red Cell Distribution Width 14.2 % (11.6-14.8); White Blood Cell Count 11.6 X10^3/uL (4.5-11.0)
[2021-03-27] MEDS: LIDOCAINE 2% (GLYDO) 6 ML GEL TOP (13:14)
--- NOTE | 2021-03-27 13:55 | PC.NURSE ---
patient switched to leg bag. Educated on care and maintenance of jacques
[2021-03-27 14:10] VITALS: BP 119/67; PULSE 77; RESP 22; O2SAT 96
== END 2021-03-27 14:10 | disposition home or self-care (01) ==
PROVIDERS: Emergency Medicine; Emergency Provider Student in an Organized Health Care Education/Training Program; PCP Internal Medicine
DX: N30.90 Cystitis, unspecified without hematuria (principal); R33.9 Retention of urine, unspecified
CPT/HCPCS: 51798; 80053; 81003; 81015; 83690; 85025; 87077; 87086; 87186; 96374; 99283; 99284

== ENCOUNTER → 2021-04-05 09:40 | Outpatient (CLI) | payer MEDICARE, OTHER, SELFPAY ==
[2021-04-05 10:21] LABS: Appearance Urine UA CLEAR; Bilirubin Urine UA NEGATIVE (NEGATIVE); Color Urine UA YELLOW; Glucose Urine UA NEGATIVE (Negative); Ketones Urine UA NEGATIVE (NEGATIVE); Leukocyte Esterase Urine UA TRACE (NEGATIVE); Nitrite Urine UA NEGATIVE (Negative); Occult Blood Urine UA 3+ (Negative); Protein Urine UA 2+ (Negative); Urobilinogen Urine UA 0.2 E.U./dL (0.2)
[2021-04-05 10:49] LABS: Bacteria Urine Few (2-10); Culture Indicated Urine Specimen Cultured; RBC Urine 10-30/HPF (0-5/HPF); Squamous Epithelial Cell Urine 0-1 /HPF (0-5/HPF); WBC Urine 0-1/HPF (0-5/HPF)
== END ==
PROVIDERS: PCP Internal Medicine; Visit Provider Urology
DX: R30.0 Dysuria (principal)
CPT/HCPCS: 51701; 81001; 87086

== ENCOUNTER → 2021-04-21 08:54 | Outpatient (CLI) | payer MEDICARE, OTHER, SELFPAY | PROVIDERS: PCP Internal Medicine; Visit Provider Urology | DX: N39.0 Urinary tract infection, site not specified (principal); R30.0 Dysuria | CPT/HCPCS: 51701; 81002; 87077; 87086; 87186 ==

== ENCOUNTER → 2021-05-15 11:16 | Outpatient (CLI) | payer MEDICARE, OTHER, SELFPAY ==
[2021-05-15 13:45] LABS: Alanine Aminotransferase 24 IU/L (<50); Albumin 4.7 g/dL (3.5-5.0); Albumin Globulin Ratio 1.3 (1.0-2.8); Alkaline Phosphatase 88 U/L (38-126); Aspartate Aminotransferase 33 IU/L (17-59); Bilirubin Total 0.3 mg/dL (0.2-1.3); Bilirubin Unconjugated 0.2 mg/dL (0.0-1.1); Globulin 3.5 g/dL (1.7-4.1); HEMOLYSIS < 15 (0-50); Total Protein 8.2 g/dL (6.3-8.2)
[2021-05-15 15:27] LABS: Bacteria Urine Many (>30); Culture Indicated Urine Specimen Cultured; RBC Urine 10-30/HPF (0-5/HPF); WBC Urine 10-30/HPF (0-5/HPF)
== END ==
PROVIDERS: Urology; PCP Internal Medicine; Referring Provider Internal Medicine Critical Care Medicine; Visit Provider Internal Medicine Critical Care Medicine
DX: J84.9 Interstitial pulmonary disease, unspecified (principal); Z79.899 Other long term (current) drug therapy; N39.0 Urinary tract infection, site not specified; R30.0 Dysuria; R33.8 Other retention of urine; Z87.438 Personal history of other diseases of male genital organs; Z87.440 Personal history of urinary (tract) infections
CPT/HCPCS: 36415; 80076; 81015; 87086

== ENCOUNTER → 2021-05-24 10:15 | Outpatient (CLI) | payer MEDICARE, OTHER, SELFPAY ==
[2021-05-24 12:01] LABS: COVID19 -Nasal RAPID Negative (Negative)
== END ==
PROVIDERS: PCP Internal Medicine; Visit Provider Physician Assistant
DX: Z20.822 Contact with and (suspected) exposure to COVID-19 (principal)
CPT/HCPCS: 87635; C9803

== ENCOUNTER → 2021-05-25 07:31 | Outpatient (CLI) | payer MEDICARE, OTHER, SELFPAY ==
--- NOTE | 2021-05-25 | DI.ECHO.S_ITS ---
[facility]---------+ [facility] +---------+ : : [address] [place] : : : : [id number] : : : : Phone: [phone] Echocardiogram Report + + :Name: LAUREN VENTURA Study Date: 05/25/2021 Height: 69 in : :[facility] ReadingLocation: Weight: 147 lb : : Gender: Male BSA: 1.8 m2 : :: 1950 Age: 70 yrs BP: 104/62 mmHg: :Reason For Study: ISCHEMIC HEART DISEASE : :Ordering Physician: JEVON, : :ISHAAN Performed By: Lena Hartley : :Referring: ISHAAN ESCOTO : + + Interpretation Summary Left ventricular systolic function remains normal with an estimated ejection fraction of 60 to 65% without any focal wall motion abnormality and appears unchanged from the previous exam. Left ventricular size and wall thickness remain normal and diastolic function is likely normal with probable normal filling pressures. There has been no significant change since the previous study. The right ventricle appears normal and unchanged since the previous study. Right ventricular systolic pressure is estimated at 46 mmHg with a CVP of around 3 mmHg. While this is higher than reported on the previous study, the previous exam may have underestimated the RVSP. Both atria are normal in size with interval decrease in left atrial size since the previous exam. There is mild tricuspid regurgitation that is slightly more prominent compared to the previous study but there is no other significant valvular abnormality. The ascending aorta is mildly enlarged and measures slightly larger compared to the previous study. Procedure: A two-dimensional transthoracic echocardiogram with color flow and Doppler was performed. The study quality was technically adequate. There is no prior echocardiogram noted for this patient. Left Ventricle: The left ventricle appears normal in size, wall thickness, and systolic function without any focal wall motion abnormalities. The ejection fraction is estimated to be 60-65%. Diastolic parameters suggest probable normal left ventricular diastolic function and normal filling pressures. There has been no significant change since the previous study. Right Ventricle: The right ventricle is normal in size and function. This is unchanged compared to the previous study. Atria: The left atrial size is normal. The left atrium has mildly decreased in size since the prior echo exam. Right atrial size is normal. There is no Doppler evidence for an interatrial shunt. Mitral Valve: The mitral valve is normal in structure and function. There is trace mitral regurgitation. Aortic Valve: The aortic valve is trileaflet. The aortic valve opens well. There is no aortic valve stenosis. No aortic regurgitation is present. Tricuspid Valve: The tricuspid valve is normal in structure and function. There is mild tricuspid regurgitation. The right ventricular systolic pressure is estimated to be at least 46 mmHg based on an estimated right atrial pressure of 3 mm Hg. This is higher compared to the previous study. Pulmonic Valve: The pulmonic valve leaflets are thin and pliable; valve motion is normal. There is no pulmonic valvular regurgitation. There is no other significant valvular heart disease. Great Vessels: The aortic root is normal size. The ascending aorta is mildly enlarged. This is slightly larger compared to the previous study. The IVC is of normal diameter and collapses greater than 50% with a sniff. This suggests a low right atrial pressure of 3 mm Hg. Pericardium/ Pleura There is no pericardial effusion. There is no pleural effusion. MMode/2D Measurements & Calculations LVIDd: 4.3 cm LVOT diam: 2.1 cm LVIDs: 2.7 cm Ao root diam: 3.1 cm FS: 36.9 % asc Aorta Diam: 3.6 cm IVSd: 0.62 cm Ao Arch Diam (Prox Trans): 2.7 cm LVPWd: 0.51 cm LV wick. diameter/BSA (cm/m^2): 2.3 LV sys. diameter/BSA (cm/m^2): 1.5 LA A2 area: 16.1 cm2 RA long axis: 3.7 cm LA A4 area: 18.1 cm2 RA area: 13.3 cm2 LA length (vol): 4.8 cm RA vol: 40.9 ml LA vol: 51.6 ml RA : 22.6 ml/m2 LA vol index: 28.5 ml/m2 IVC diam: 1.4 cm RVD1 (basal): 3.5 cm TAPSE: 2.1 cm Doppler Measurements & Calculations Ao V2 max: 107.4 cm/sec LVOT Max Tony: 77.8 cm/sec Ao V2 mean: 73.5 cm/sec LV V1 max P.4 mmHg Ao max P.6 mmHg LV V1 VTI: 17.4 cm Ao mean P.5 mmHg RENAN(I,D): 2.7 cm2 Ao V2 VTI: 22.4 cm RENAN(V,D): 2.5 cm2 sev ratio: 0.78 RENAN indexed to BSA (cm^2/m^2): 1.5 MV E max tony: 61.8 cm/sec TR max tony: 326.3 cm/sec MV A max tony: 47.1 cm/sec TR max P.6 mmHg MV E/A: 1.3 PA V2 max: 81.9 cm/sec Med Peak E' Tony: 8.8 cm/sec PA V2 mean: 48.1 cm/sec E/E' med: 7.1 PA mean P.1 mmHg Lat Peak E' Tony: 9.6 cm/sec PA pr(Accel): 37.9 mmHg E/E' lat: 6.4 E/e' average: 6.7 MV dec time: 0.27 sec SV(LVOT): 59.5 ml Reading Physician:03:27 PM
--- NOTE | 2021-05-25 19:28 | DI.NM.S_ITS ---
DATE OF SERVICE: 05/25/2021 PROCEDURE: Pharmacological perfusion study. INDICATION: Chest pain with known history of coronary artery disease, hypertension, hyperlipidemia. RADIOPHARMACEUTICAL: 23.8 millicurie technetium-99m Myoview IV was injected at stress and 12.0 millicurie technetium-99m Myoview IV was injected at rest. CARDIAC STRESS: The patient underwent IV Lexiscan perfusion study under the supervision of an attending staff using standard protocol. The patient received IV Lexiscan, as per protocol. The patient remained hemodynamically stable. Baseline rhythm was sinus. During stress, there were some nonspecific ST-T changes. No significant arrhythmias seen. No anginal symptoms. RAW DATA: There was increased subdiaphragmatic activity. GATED STUDY: Stress LV ejection fraction is 74 percent without any obvious wall motion abnormalities. Resting end-diastolic volume 80 mL. TID ratio 0.75, which is within normal limits. Lung/heart ratio 0.38, which is within normal limits. MYOCARDIAL PERFUSION SCAN: Stress supine, resting supine and stress prone images were compared to each other. Stress supine and resting supine images revealed normal myocardial perfusion. CONCLUSION: I will call this study a normal myocardial perfusion study without any obvious ischemia or infarction pattern. Preserved left ventricular function. Overall low-risk myocardial perfusion study. The patient had a pharmacological perfusion study on 03/27/2019, as well. At that time, also had normal myocardial perfusion. Ozzy Alcazar - Marcelino/lc doc#: [id number]/job#: [id number] dd: 05/25/2021 17:24:00 dt: 05/25/2021 18:58:00 DICTATING MD/COPIES TO: Cody Mlaone MD COPIES MNE: KIRK;
== END ==
PROVIDERS: PCP Internal Medicine; Referring Provider Specialist; Visit Provider Specialist
DX: I07.1 Rheumatic tricuspid insufficiency (principal); I77.89 Other specified disorders of arteries and arterioles; I25.9 Chronic ischemic heart disease, unspecified; I20.8 Other forms of angina pectoris; I10 Essential (primary) hypertension; E78.5 Hyperlipidemia, unspecified
CPT/HCPCS: 78452; 93017; 93306; A9502; J2785

== ENCOUNTER 2021-05-29 11:43 | Emergency (ER) | payer MEDICARE, OTHER, SELFPAY ==
[2021-05-29] VITALS (12 sets, daily range): BP systolic 107–127; BP diastolic 56–64; PULSE 58–66; RESP 18; TEMP 36.7; O2SAT 92–99; BMI 21.7
[2021-05-29] MEDS: ONDANSETRON 4 MG/2 ML INJ IV (12:06)
[2021-05-29] MEDS: SODIUM CHLORIDE 0.9% 1,000 ML 1000 ML IV (12:06)
[2021-05-29] MEDS: PANTOPRAZOLE 40 MG VIAL IV (12:06)
[2021-05-29 12:13] LABS: INR 1.1 (0.9-1.3); Prothrombin Time 12.7 SECONDS (10.1-12.7)
[2021-05-29 12:16] LABS: PTT Partial Thromboplastin Tim 33 SECONDS (26.4-36.2)
[2021-05-29 12:17] LABS: Add Manual Diff / Slide Review NO; Basophils Absolute Auto 100 /uL (0-100); Basophils Percent Auto 0.9 % (0-2); Eosinophils Absolute Auto 200 /uL (0-450); Eosinophils Percent Auto 3.1 % (2-4); Hematocrit 45.9 % (41-53); Hemoglobin 15.9 g/dL (13.5-17.5); Lymphocytes Absolute Auto 1700 /uL (1100-4500); Lymphocytes Percent Auto 22.3 % (25-40); Mean Corpuscular HGB Conc 34.6 % (30-36); Mean Corpuscular Hemoglobin 33.9 PG (26-34); Monocytes Absolute Auto 600 /uL (0-900); Monocytes Percent Auto 7.4 % (3-14); Neutrophils Absolute Auto 5000 /uL (1500-7000); Neutrophils Percent Auto 66.3 % (50-75); Platelet Count 266 X10^3/uL (150-400); Red Blood Cell Count 4.68 X10^6/uL (4.5-5.9); Red Cell Distribution Width 13.9 % (11.6-14.8); White Blood Cell Count 7.5 X10^3/uL (4.5-11.0)
[2021-05-29 12:18] LABS: Alanine Aminotransferase 29 IU/L (<50); Albumin 5.1 g/dL (3.5-5.0); Albumin Globulin Ratio 1.2 (1.0-2.8); Alkaline Phosphatase 111 U/L (38-126); Aspartate Aminotransferase 41 IU/L (17-59); BUN Creatinine Ratio 11.6 (6-22); Bilirubin Total 0.5 mg/dL (0.2-1.3); Blood Urea Nitrogen 14 mg/dL (9-20); Calcium 9.9 mg/dL (8.4-10.2); Carbon Dioxide 23 mmol/L (22-32); Chloride 104 mmol/L (98-107); Creatine Kinase 110 U/L (55-170); Estimated Glomerular Filt Rate 59.1 mL/min (>60); Globulin 4.1 g/dL (1.7-4.1); Glucose 119 mg/dL (80-110); HEMOLYSIS 26 (0-50); Lipase 93 U/L (23-300); Sodium 138 mmol/L (137-145); Total Protein 9.2 g/dL (6.3-8.2)
[2021-05-29 12:29] LABS: Troponin I < 0.012 ng/mL (0.01-0.034)
[2021-05-29 12:33] LABS: Creatine Kinase MB 1.05 ng/mL (<2.37)
--- NOTE | 2021-05-29 12:39 | PC.NURSE ---
Substernal pain worse at the end of exhalation.
[2021-05-29] MEDS: MAG HYDROX/ALUMINUM/SIMETH SUS 20 ML, LIDOCAINE VISCOUS 2% 15 ML PO (12:43)
--- NOTE | 2021-05-29 13:08 | ED_ITS ---
HPI - Nausea/Vomiting/Diarrhea <Nanci Sierra PA-C - Last Filed: 05/29/21 20:11> General Chief complaint: Nausea/Vomiting/Diarrhea Stated complaint: n/v Time Seen by Provider: 05/29/21 12:12 Source: patient and EMS Mode of arrival: EMS History of Present Illness HPI Narrative: 70-year-old male with past medical history UTI, vertigo, idiopathic pulmonary fibrosis, urinary retention, prostatitis presents to the ED with 2 days of dizziness. 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 Patient states he has had 2 other episodes of similar vertigo that spontaneously resolved. Patient also endorses tinnitus, nausea, vomiting. Patient describes his dizziness as the room spinning and by clockwise. Patient came to the ED, given that he was intractably vomiting and his dizziness did not resolve. Patient denies fever, chills, chest pain, shortness of breath, cough, abdominal pain, dysuria, lightheadedness, syncope. Patient denies any numbness, tingling, weakness. Patient endorses that he is able to walk normally. Related Data Home Medications Medication Instructions Recorded Confirmed esomeprazole magnesium 20 mg 20 mg PO DAILY 03/27/21 04/21/21 capsule,delayed release ezetimibe 10 mg tablet 10 mg PO DAILY 03/27/21 04/21/21 guaifenesin 400 mg tablet 400 mg PO QID 03/27/21 04/21/21 pirfenidone 267 mg tablet 534 mg PO TID 03/27/21 04/21/21 rosuvastatin 20 mg tablet 20 mg PO DAILY 03/27/21 04/21/21 Previous Rx's Medication Instructions Recorded sulfamethoxazole 800 1 tab PO BID #10 tab 04/21/21 mg-trimethoprim 160 mg tablet (Bactrim DS) sulfamethoxazole 800 1 tab PO BID #24 tab 05/08/21 mg-trimethoprim 160 mg tablet (Bactrim DS) sulfamethoxazole 800 1 tab PO BID #20 tab 05/17/21 mg-trimethoprim 160 mg tablet (Bactrim DS) meclizine 25 mg tablet 25 mg PO TID 10 Days #30 tab 05/29/21 ondansetron HCl 4 mg tablet 4 mg PO Q8H PRN 10 Days tab 12/20/21 (Zofran) Allergies Allergy/AdvReac Type Severity Reaction Status Date / Time No Known Drug Allergies Allergy Verified 05/29/21 12:00 Review of Systems <Nanci Sierra PA-C - Last Filed: 05/29/21 20:11> Review of Systems ROS Unobtainable: All systems reviewed & are unremarkable except as noted in HPI and below Constitutional Constitutional: Denies chills, Denies fatigue, Denies fever(s), Denies frequent falls, Denies lethargy and Denies weakness Eyes Eyes: Denies change in vision, Denies eye discharge, Denies irritation and Denies loss of vision ENT Ears, Nose, Mouth, and Throat: Denies change in voice, Reports dizziness, Denies neck pain, Reports tinnitus, Denies sore throat and Denies throat swelling Cardiovascular Cardiovascular: Denies chest pain, Denies irregular heart rhythm, Denies lighthe adedness, Denies palpitations, Denies dyspnea, Denies dyspnea on exertion and Denies orthopnea Respiratory Respiratory: Denies cough, Denies dyspnea, Denies dyspnea on exertion and Denies wheezing Gastrointestinal Gastrointestinal: Denies abdominal pain, Denies change in bowel habits, Denies diarrhea, Reports nausea and Reports vomiting Genitourinary Genitourinary: Denies hematuria, Denies flank pain, Denies urinary incontinence and Denies urinary urgency Musculoskeletal Musculoskeletal: Denies back pain, Denies muscle weakness, Denies neck pain, Denies numbness and Denies tingling Integumentary/Breasts Skin/Breast: Denies pruritus, Denies erythema, Denies rash and Denies wounds Neurologic Neurologic: Denies behavioral changes, Denies confusion, Reports dizziness, Denies frequent falls, Denies loss of vision, Denies numbness, Denies tingling and Denies weakness Psychiatric Psychiatric: Denies anxiety, Denies behavioral changes, Denies confusion, Denies depression, Denies homicidal ideation and Denies suicidal ideation Endocrine Endocrine: Denies fatigue, Denies flushing and Denies palpitations Hematologic/Lymphatic Hematologic/Lymphatic: Denies easy bruising Allergic/Immunologic Allergic/Immunologic: Denies urticaria, Denies throat swelling and Denies wheezing Patient History <Nanci Sierra PA-C - Last Filed: 05/29/21 20:11> Medical History Acute urinary retention Coronary heart disease Dysuria GERD (gastroesophageal reflux disease) History of prostatitis History of urinary tract infection Idiopathic pulmonary fibrosis Migraine Urinary tract infection Surgical History History of coronary artery stent placement Family History Mother Cancer CVA (cerebral vascular accident) Father Hyperlipidemia Social History marital status: number of children: 2 Previous occupational history: retired [employer] leisure activities: exercise Smoking Status: Never smoker alcohol intake: current Type(s) of exercise: aerobic frequency: daily Smoking Status: Never smoker alcohol intake frequency: holidays/special occasions only Substance Use Type: does not use Exam <Nanic Sierra PA-C - Last Filed: 05/29/21 20:11> Initial Vital Signs Initial Vital Signs: Vital Signs Temperature 98.1 F 05/29/21 11:50 Pulse Rate 62 05/29/21 11:50 Respiratory Rate 18 05/29/21 11:50 Blood Pressure 127/64 05/29/21 11:50 Pulse Oximetry 99 05/29/21 11:50 Const General: cooperative, healthy appearing and comfortable [facility] Head: normal to inspection Ears: hearing grossly normal bilaterally, external ears normal and TM's normal bilaterally Nose: external nose normal Face and sinus: normal facial exam Mouth: oral mucosae normal Throat: posterior oropharynx normal Eyes General: appearance normal, both eyes and all related structures Neck Neck: normal visual inspection Chest Chest: normal inspection of the chest Resp Effort & Inspection: normal respiratory effort Auscultation: clear to auscultation bilaterally Cardio Rate: regular rate Rhythm: regular rhythm GI Other: Abdomen is soft, nondistended, nontender to palpation. No CVA tenderness. General: No CVA tenderness Skin General: no rashes or lesions noted Neuro General: patient alert, patient awake and patient oriented x3 Other: PERRLA. CN 1 through 12 intact bilaterally. Normal gait. Negative fi [id number], negative pronator drift, negative rapid alternating movements. Full range of motion. Strength and sensation intact. Patient is neurologically intact. <Ana Yi DO - Last Filed: 05/30/21 14:00> Initial Vital Signs Initial Vital Signs: Vital Signs Temperature 98.1 F 05/29/21 11:50 Pulse Rate 62 05/29/21 11:50 Respiratory Rate 18 05/29/21 11:50 Blood Pressure 127/64 05/29/21 11:50 Pulse Oximetry 99 05/29/21 11:50 Course <Nanci Sierra PA-C - Last Filed: 05/29/21 20:11> Orders Ordered: Discontinued Medications Al Hydrox/Mg Hydrox/Simethicone 20 ml/ Lidocaine HCl 15 ml 0 ml PO NOW ONE Stop: 05/29/21 12:39 Last Admin: 05/29/21 12:43 Dose: 35 ml Documented by: ZENY Sodium Chloride (Normal Saline 0.9%) 1,000 mls @ 1,000 mls/hr IV BOLUS ONE Stop: 05/29/21 13:00 Last Infusion: 05/29/21 13:36 Dose: 0 mls/hr Documented by: Admin: 05/29/21 12:06 Dose: 1,000 mls/hr Documented by: KENYA Meclizine HCl (Meclizine Hcl 12.5 Mg Tablet) 25 mg PO NOW ONE Stop: 05/29/21 15:38 Last Admin: 05/29/21 15:45 Dose: 25 mg Documented by: ZENY Metoclopramide HCl (Metoclopramide 10 Mg/2 Ml Inj) 10 mg IV NOW ONE Stop: 05/29/21 13:07 Last Admin: 05/29/21 13:19 Dose: 10 mg Documented by: DESHAUN Ondansetron HCl (Ondansetron 4 Mg/2 Ml Inj) 4 mg IV NOW ONE Stop: 05/29/21 12:02 Last Admin: 05/29/21 12:06 Dose: 4 mg Documented by: KENYA Pantoprazole Sodium (Pantoprazole 40 Mg Vial) 40 mg IV NOW ONE Stop: 05/29/21 12:02 Last Admin: 05/29/21 12:06 Dose: 40 mg Documented by: KENYA Vital Signs Vital signs: Vital Signs - 8 hr 05/29/21 12:02 05/29/21 12:30 05/29/21 13:00 Pulse Rate 62 65 62 Respiratory Rate Blood Pressure 121/62 125/59 L Pulse Oximetry 97 92 94 05/29/21 13:30 05/29/21 13:53 05/29/21 14:00 Pulse Rate 58 L 65 63 Respiratory Rate Blood Pressure 107/57 L 120/58 L 119/56 L Pulse Oximetry 93 93 94 05/29/21 14:30 05/29/21 15:00 05/29/21 15:30 Pulse Rate 66 63 63 Respiratory Rate Blood Pressure 117/60 109/60 Pulse Oximetry 94 92 95 05/29/21 15:31 05/29/21 16:05 Pulse Rate 64 64 Respiratory Rate 18 Blood Pressure 121/59 L 121/59 L Pulse Oximetry 94 95 <Ana Yi DO - Last Filed: 05/30/21 14:00> Orders Ordered: Discontinued Medications Al Hydrox/Mg Hydrox/Simethicone 20 ml/ Lidocaine HCl 15 ml 0 ml PO NOW ONE Stop: 05/29/21 12:39 Last Admin: 05/29/21 12:43 Dose: 35 ml Documented by: ZENY Sodium Chloride (Normal Saline 0.9%) 1,000 mls @ 1,000 mls/hr IV BOLUS ONE Stop: 05/29/21 13:00 Last Infusion: 05/29/21 13:36 Dose: 0 mls/hr Documented by: Admin: 05/29/21 12:06 Dose: 1,000 mls/hr Documented by: KENYA Meclizine HCl (Meclizine Hcl 12.5 Mg Tablet) 25 mg PO NOW ONE Stop: 05/29/21 15:38 Last Admin: 05/29/21 15:45 Dose: 25 mg Documented by: ZENY Metoclopramide HCl (Metoclopramide 10 Mg/2 Ml Inj) 10 mg IV NOW ONE Stop: 05/29/21 13:07 Last Admin: 05/29/21 13:19 Dose: 10 mg Documented by: DESHAUN Ondansetron HCl (Ondansetron 4 Mg/2 Ml Inj) 4 mg IV NOW ONE Stop: 05/29/21 12:02 Last Admin: 05/29/21 12:06 Dose: 4 mg Documented by: KENYA Pantoprazole Sodium (Pantoprazole 40 Mg Vial) 40 mg IV NOW ONE Stop: 05/29/21 12:02 Last Admin: 05/29/21 12:06 Dose: 40 mg Documented by: KENYA Vital Signs Vital signs: Vital Signs - 8 hr 05/29/21 12:02 05/29/21 12:30 05/29/21 13:00 Pulse Rate 62 65 62 Respiratory Rate Blood Pressure 121/62 125/59 L Pulse Oximetry 97 92 94 05/29/21 13:30 05/29/21 13:53 05/29/21 14:00 Pulse Rate 58 L 65 63 Respiratory Rate Blood Pressure 107/57 L 120/58 L 119/56 L Pulse Oximetry 93 93 94 05/29/21 14:30 05/29/21 15:00 05/29/21 15:30 Pulse Rate 66 63 63 Respiratory Rate Blood Pressure 117/60 109/60 Pulse Oximetry 94 92 95 05/29/21 15:31 05/29/21 16:05 Pulse Rate 64 64 Respiratory Rate 18 Blood Pressure 121/59 L 121/59 L Pulse Oximetry 94 95 MDM - Nausea/Vomiting/Diarrhea <Nanci Sierra PA-C - Last Filed: 05/29/21 20:11> Lab Data Attestation: I reviewed the patient's lab results. Lab results narrative: Labs within normal limits Result diagrams: 05/29/21 11:50 05/29/21 11:50 Labs: Lab Results 05/29/21 05/29/21 05/29/21 Range/Units 11:50 11:50 11:50 WBC 7.5 (4.5-11.0) X10^3/uL RBC 4.68 (4.5-5.9) X10^6/uL Hgb 15.9 (13.5-17.5) g/dL Hct 45.9 (41-53) % MCV 98.0 (80-100) fL MCH 33.9 (26-34) PG MCHC 34.6 (30-36) % RDW 13.9 (11.6-14.8) % Plt Count 266 (150-400) X10^3/uL Neut % (Auto) 66.3 (50-75) % Lymph % (Auto) 22.3 L (25-40) % Phelps % (Auto) 7.4 (3-14) % Eos % (Auto) 3.1 (2-4) % Baso % (Auto) 0.9 (0-2) % Neut # (Auto) 5000 (4194-6383) /uL Lymph # (Auto) 1700 (7897-8104) /uL Phelps # (Auto) 600 (0-900) /uL Eos # (Auto) 200 (0-450) /uL Baso # (Auto) 100 (0-100) /uL PT 12.7 (10.1-12.7) SECONDS INR 1.1 (0.9-1.3) APTT 33 (26.4-36.2) SECONDS Sodium 138 (137-145) mmol/L Potassium 4.0 (3.4-5.1) mmol/L Chloride 104 (98-107) mmol/L Carbon Dioxide 23 (22-32) mmol/L BUN 14 (9-20) mg/dL Creatinine 1.21 (0.66-1.25) mg/dL Estimated GFR 59.1 L (>60) mL/min BUN/Creatinine Ratio 11.6 (6-22) Glucose 119 H (80-110) mg/dL Calcium 9.9 (8.4-10.2) mg/dL Total Bilirubin 0.5 (0.2-1.3) mg/dL AST 41 (17-59) IU/L ALT 29 (<50) IU/L Alkaline Phosphatase 111 (38-126) U/L Total Creatine Kinase 110 (55-170) U/L CK-MB (CK-2) 1.05 (<2.37) ng/mL CK-MB (CK-2) Rel Index 1.0 L (1.5-5.0) % Troponin I < 0.012 (0.01-0.034) ng/mL Total Protein 9.2 H (6.3-8.2) g/dL Albumin 5.1 H (3.5-5.0) g/dL Globulin 4.1 (1.7-4.1) g/dL Albumin/Globulin Ratio 1.2 (1.0-2.8) Lipase 93 (23-300) U/L Urine Color Urine Appearance Urine pH (4.5-8.0) Ur Specific [place] (1.000-1.035) Urine Protein (Negative) Urine Glucose (UA) (Negative) g/dL Urine Ketones (NEGATIVE) Urine Occult Blood (Negative) Urine Nitrate (Negative) Urine Bilirubin (NEGATIVE) Urine Urobilinogen (0.2) E.U./dL Ur Leukocyte Esterase (NEGATIVE) Urine RBC (0-5/HPF) Urine WBC (0-5/HPF) Ur Squamous Epith Cells (0-5/HPF) Urine Bacteria (None) Urine Yeast (None) Ur Culture Indicated? Micro UA Comment 05/29/21 Range/Units 12:30 WBC (4.5-11.0) X10^3/uL RBC (4.5-5.9) X10^6/uL Hgb (13.5-17.5) g/dL Hct (41-53) % MCV (80-100) fL MCH (26-34) PG MCHC (30-36) % RDW (11.6-14.8) % Plt Count (150-400) X10^3/uL Neut % (Auto) (50-75) % Lymph % (Auto) (25-40) % Phelps % (Auto) (3-14) % Eos % (Auto) (2-4) % Baso % (Auto) (0-2) % Neut # (Auto) (2531-2074) /uL Lymph # (Auto) (9418-5915) /uL Phelps # (Auto) (0-900) /uL Eos # (Auto) (0-450) /uL Baso # (Auto) (0-100) /uL PT (10.1-12.7) SECONDS INR (0.9-1.3) APTT (26.4-36.2) SECONDS Sodium (137-145) mmol/L Potassium (3.4-5.1) mmol/L Chloride (98-107) mmol/L Carbon Dioxide (22-32) mmol/L BUN (9-20) mg/dL Creatinine (0.66-1.25) mg/dL Estimated GFR (>60) mL/min BUN/Creatinine Ratio (6-22) Glucose (80-110) mg/dL Calcium (8.4-10.2) mg/dL Total Bilirubin (0.2-1.3) mg/dL AST (17-59) IU/L ALT (<50) IU/L Alkaline Phosphatase (38-126) U/L Total Creatine Kinase (55-170) U/L CK-MB (CK-2) (<2.37) ng/mL CK-MB (CK-2) Rel Index (1.5-5.0) % Troponin I (0.01-0.034) ng/mL Total Protein (6.3-8.2) g/dL Albumin (3.5-5.0) g/dL Globulin (1.7-4.1) g/dL Albumin/Globulin Ratio (1.0-2.8) Lipase (23-300) U/L Urine Color Yellow Urine Appearance Clear Urine pH 7.5 (4.5-8.0) Ur Specific [place] 1.020 (1.000-1.035) Urine Protein Negative (Negative) Urine Glucose (UA) Negative (Negative) g/dL Urine Ketones Trace H (NEGATIVE) Urine Occult Blood 3+ H (Negative) Urine Nitrate Negative (Negative) Urine Bilirubin Negative (NEGATIVE) Urine Urobilinogen 0.2 (0.2) E.U./dL Ur Leukocyte Esterase 1+ H (NEGATIVE) Urine RBC 0-1/hpf D (0-5/HPF) Urine WBC 1-5/hpf (0-5/HPF) Ur Squamous Epith Cells None seen (0-5/HPF) Urine Bacteria None seen (None) Urine Yeast 1-5/hpf H (None) Ur Culture Indicated? Specimen cultured Micro UA Comment Urine Dip Bedside Urine Glucose Negative Bedside Urine Bilirubin - Negative Bedside Urine Ketone - Negative Urine Specific [place] 1.020 Bedside Urine Occult Blood +++ Bedside Urine pH 7.0 Bedside Urine Protein - Negative Bedside Urine Urobilinogen - Negative Bedside Urine Nitrite - Negative Bedside Urine Leukocytes + [address] scan - head: Radiologist's Impression: PROCEDURE:? CT HEAD/BRAIN WO CON ? INDICATIONS:? Dizziness ? TECHNIQUE:? Noncontrast 4.5 mm thick angled axial sections acquired from the foramen magnum to the vertex, with coronal and sagittal reformats.? For radiation dose reduction, the following was used:? automated exposure control, adjustment of mA and/or kV according to patient size.? ? COMPARISON:? None. ? FINDINGS:? Image quality:? Excellent.? ? CSF spaces:? Basal cisterns are patent.? No extra-axial fluid collections.? The ventricles are symmetric in size and shape.? ? Brain:? No intracranial bleeds or masses.? There is cerebral volume loss for age, with resultant ventricular and sulcal prominence.? There are periventricular and deep white matter chronic small vessel ischemic changes.? There is intracranial internal carotid artery atherosclerosis.? ? Skull and face:? Calvarium and visualized facial bones appear intact, without suspicious lesions.? ? Sinuses:? Visualized sinuses and mastoids are clear.? ? IMPRESSION:? Unremarkable head CT for patient age.? No evidence acute stroke, hemorrhage, or mass. ? ? Dictated by: Alex Garsia M.D. on 05/29/2021 at 14:33 ? ? Approved by: Alex Garsia M.D. on 05/29/2021 at 14:34 ? MDM Narrative Medical decision making narrative: 70-year-old male with past medical history UTI, vertigo, idiopathic pulmonary fibrosis, urinary retention, prostatitis presents to the ED with 2 days of dizziness. Concern for dehydration versus peripheral vertigo versus intracranial mass Physical exam reassuring, unlikely dizziness from central causes. Will obtain labs, CT head. Will treat symptoms with IV fluids, Zofran, Reglan. Will reassess. CT head negative for acute findings. Labs within normal limits. Patient's s ymptoms improved with IV fluids, Zofran, Reglan, meclizine. Will discharge home with ENT follow-up and ED return precautions. Will give prescription for meclizine and Zofran. <Ana Yi, DO - Last Filed: 05/30/21 14:00> Lab Data Labs: Lab Results 05/29/21 05/29/21 05/29/21 Range/Units 11:50 11:50 11:50 WBC 7.5 (4.5-11.0) X10^3/uL RBC 4.68 (4.5-5.9) X10^6/uL Hgb 15.9 (13.5-17.5) g/dL Hct 45.9 (41-53) % MCV 98.0 (80-100) fL MCH 33.9 (26-34) PG MCHC 34.6 (30-36) % RDW 13.9 (11.6-14.8) % Plt Count 266 (150-400) X10^3/uL Neut % (Auto) 66.3 (50-75) % Lymph % (Auto) 22.3 L (25-40) % Phelps % (Auto) 7.4 (3-14) % Eos % (Auto) 3.1 (2-4) % Baso % (Auto) 0.9 (0-2) % Neut # (Auto) 5000 (7761-3293) /uL Lymph # (Auto) 1700 (7037-6221) /uL [place] # (Auto) 600 (0-900) /uL Eos # (Auto) 200 (0-450) /uL Baso # (Auto) 100 (0-100) /uL PT 12.7 (10.1-12.7) SECONDS INR 1.1 (0.9-1.3) APTT 33 (26.4-36.2) SECONDS Sodium 138 (137-145) mmol/L Potassium 4.0 (3.4-5.1) mmol/L Chloride 104 (98-107) mmol/L Carbon Dioxide 23 (22-32) mmol/L BUN 14 (9-20) mg/dL Creatinine 1.21 (0.66-1.25) mg/dL Estimated GFR 59.1 L (>60) mL/min BUN/Creatinine Ratio 11.6 (6-22) Glucose 119 H (80-110) mg/dL Calcium 9.9 (8.4-10.2) mg/dL Total Bilirubin 0.5 (0.2-1.3) mg/dL AST 41 (17-59) IU/L ALT 29 (<50) IU/L Alkaline Phosphatase 111 (38-126) U/L Total Creatine Kinase 110 (55-170) U/L CK-MB (CK-2) 1.05 (<2.37) ng/mL CK-MB (CK-2) Rel Index 1.0 L (1.5-5.0) % Troponin I < 0.012 (0.01-0.034) ng/mL Total Protein 9.2 H (6.3-8.2) g/dL Albumin 5.1 H (3.5-5.0) g/dL Globulin 4.1 (1.7-4.1) g/dL Albumin/Globulin Ratio 1.2 (1.0-2.8) Lipase 93 (23-300) U/L Urine Color Urine Appearance Urine pH (4.5-8.0) Ur Specific [place] (1.000-1.035) Urine Protein (Negative) Urine Glucose (UA) (Negative) g/dL Urine Ketones (NEGATIVE) Urine Occult Blood (Negative) Urine Nitrate (Negative) Urine Bilirubin (NEGATIVE) Urine Urobilinogen (0.2) E.U./dL Ur Leukocyte Esterase (NEGATIVE) Urine RBC (0-5/HPF) Urine WBC (0-5/HPF) Ur Squamous Epith Cells (0-5/HPF) Urine Bacteria (None) Urine Yeast (None) Ur Culture Indicated? Micro UA Comment 05/29/21 Range/Units 12:30 WBC (4.5-11.0) X10^3/uL RBC (4.5-5.9) X10^6/uL Hgb (13.5-17.5) g/dL Hct (41-53) % MCV (80-100) fL MCH (26-34) PG MCHC (30-36) % RDW (11.6-14.8) % Plt Count (150-400) X10^3/uL Neut % (Auto) (50-75) % Lymph % (Auto) (25-40) % [place] % (Auto) (3-14) % Eos % (Auto) (2-4) % Baso % (Auto) (0-2) % Neut # (Auto) (0313-5335) /uL Lymph # (Auto) (9342-1323) /uL [place] # (Auto) (0-900) /uL Eos # (Auto) (0-450) /uL Baso # (Auto) (0-100) /uL PT (10.1-12.7) SECONDS INR (0.9-1.3) APTT (26.4-36.2) SECONDS Sodium (137-145) mmol/L Potassium (3.4-5.1) mmol/L Chloride (98-107) mmol/L Carbon Dioxide (22-32) mmol/L BUN (9-20) mg/dL Creatinine (0.66-1.25) mg/dL Estimated GFR (>60) mL/min BUN/Creatinine Ratio (6-22) Glucose (80-110) mg/dL Calcium (8.4-10.2) mg/dL Total Bilirubin (0.2-1.3) mg/dL AST (17-59) IU/L ALT (<50) IU/L Alkaline Phosphatase (38-126) U/L Total Creatine Kinase (55-170) U/L CK-MB (CK-2) (<2.37) ng/mL CK-MB (CK-2) Rel Index (1.5-5.0) % Troponin I (0.01-0.034) ng/mL Total Protein (6.3-8.2) g/dL Albumin (3.5-5.0) g/dL Globulin (1.7-4.1) g/dL Albumin/Globulin Ratio (1.0-2.8) Lipase (23-300) U/L Urine Color Yellow Urine Appearance Clear Urine pH 7.5 (4.5-8.0) Ur Specific [place] 1.020 (1.000-1.035) Urine Protein Negative (Negative) Urine Glucose (UA) Negative (Negative) g/dL Urine Ketones Trace H (NEGATIVE) Urine Occult Blood 3+ H (Negative) Urine Nitrate Negative (Negative) Urine Bilirubin Negative (NEGATIVE) Urine Urobilinogen 0.2 (0.2) E.U./dL Ur Leukocyte Esterase 1+ H (NEGATIVE) Urine RBC 0-1/hpf D (0-5/HPF) Urine WBC 1-5/hpf (0-5/HPF) Ur Squamous Epith Cells None seen (0-5/HPF) Urine Bacteria None seen (None) Urine Yeast 1-5/hpf H (None) Ur Culture Indicated? Specimen cultured Micro UA Comment Urine Dip Bedside Urine Glucose Negative Bedside Urine Bilirubin - Negative Bedside Urine Ketone - Negative Urine Specific [place] 1.020 Bedside Urine Occult Blood +++ Bedside Urine pH 7.0 Bedside Urine Protein - Negative Bedside Urine Urobilinogen - Negative Bedside Urine Nitrite - Negative Bedside Urine Leukocytes + 70 Esterase ECG Data Attestation: I personally reviewed and interpreted this ECG as follows: Prior ECG tracings: not available for review Interpretation: Sinus rhythm rate of 61 UT 136 QRS 80 QTC of 471. No acute ST elevation depression noted. No priors for comparison. Discharge Plan Departure Patient Disposition: Home Clinical Impression: Dizziness Instructions: Vertigo Activity Restrictions/Additional Instructions: You were evaluated in the ED today for dizziness. Your labs and head CT were normal. Your symptoms improved with Zofran and Reglan. You may continue to take meclizine, Zofran for your symptoms. Continue to stay hydrated. Please follow-up with your ENT for further workup and management. Return to the ED if your symptoms worsen. Prescriptions: New meclizine 25 mg tablet 25 mg PO TID 10 Days Qty: 30 0RF ondansetron HCl [Zofran] 4 mg tablet 4 mg PO Q8H PRN (Reason: nausea and vomiting) 10 Days 0RF No Action rosuvastatin 20 mg tablet 20 mg PO DAILY 0RF ezetimibe 10 mg tablet 10 mg PO DAILY 0RF pirfenidone 267 mg tablet 534 mg PO TID 0RF Rx Instructions: administer with food at the same time(s) each day; resume usual dose after stopping ciprofloxacin esomeprazole magnesium 20 mg capsule,delayed release(DR/EC) 20 mg PO DAILY 0RF guaifenesin 400 mg tablet 400 mg PO QID 0RF sulfamethoxazole-trimethoprim [Bactrim DS] 800-160 mg tablet 1 tab PO BID Qty: 24 0RF Rx Instructions: Please continue to take antibiotic until seen for office procedure sulfamethoxazole-trimethoprim [Bactrim DS] 800-160 mg tablet 1 tab PO BID Qty: 20 0RF sulfamethoxazole-trimethoprim [Bactrim DS] 800-160 mg tablet 1 tab PO BID Qty: 10 0RF Referrals: Leigh Mercedes MD [Primary Care Provider] - <Ana Yi DO - Last Filed: 05/30/21 14:00> Cosign ED Attending Swapnaature Attestation: I was immediately available in the department for consultation. Documentation has been reviewed.
--- NOTE | 2021-05-29 13:09 | DI.CT.S_ITS ---
PROCEDURE: CT HEAD/BRAIN WO CON INDICATIONS: Dizziness TECHNIQUE: Noncontrast 4.5 mm thick angled axial sections acquired from the foramen magnum to the vertex, with coronal and sagittal reformats. For radiation dose reduction, the following was used: automated exposure control, adjustment of mA and/or kV according to patient size. COMPARISON: None. FINDINGS: Image quality: Excellent. CSF spaces: Basal cisterns are patent. No extra-axial fluid collections. The ventricles are symmetric in size and shape. Brain: No intracranial bleeds or masses. There is cerebral volume loss for age, with resultant ventricular and sulcal prominence. There are periventricular and deep white matter chronic small vessel ischemic changes. There is intracranial internal carotid artery atherosclerosis. Skull and face: Calvarium and visualized facial bones appear intact, without suspicious lesions. Sinuses: Visualized sinuses and mastoids are clear. IMPRESSION: Unremarkable head CT for patient age. No evidence acute stroke, hemorrhage, or mass. Dictated by: Alex Garsia M.D. on 05/29/2021 at 14:33 Approved by: Alex Garsia M.D. on 05/29/2021 at 14:34
[2021-05-29] MEDS: METOCLOPRAMIDE 10 MG/2 ML INJ IV (13:19)
[2021-05-29 13:23] LABS: Appearance Urine UA CLEAR; Bilirubin Urine UA NEGATIVE (NEGATIVE); Color Urine UA YELLOW; Glucose Urine UA NEGATIVE (Negative); Ketones Urine UA TRACE (NEGATIVE); Leukocyte Esterase Urine UA 1+ (NEGATIVE); Nitrite Urine UA NEGATIVE (Negative); Occult Blood Urine UA 3+ (Negative); Protein Urine UA NEGATIVE (Negative); Urobilinogen Urine UA 0.2 E.U./dL (0.2); pH Urine UA 7.5 (4.5-8.0)
[2021-05-29 13:40] LABS: Bacteria Urine None Seen; Culture Indicated Urine Specimen Cultured; RBC Urine 0-1/HPF (0-5/HPF); Squamous Epithelial Cell Urine None Seen (0-5/HPF); WBC Urine 1-5/HPF (0-5/HPF)
[2021-05-29] MEDS: MECLIZINE HCL 12.5 MG TABLET 25 MG PO (15:45)
== END 2021-05-29 16:06 | disposition home or self-care (01) ==
PROVIDERS: Emergency Medicine; Emergency Provider Student in an Organized Health Care Education/Training Program; PCP Internal Medicine
DX: R42 Dizziness and giddiness (principal)
CPT/HCPCS: 36415; 70450; 80053; 81001; 81003; 82550; 82553; 83690; 84484; 85025; 85610; 85730; 87086; 93005; 96361; 96374; 96375; 99284; C9113; J2405; J2765

== ENCOUNTER → 2021-06-27 08:50 | Outpatient (CLI) | payer MEDICARE, OTHER, SELFPAY ==
[2021-06-27 11:16] LABS: Alanine Aminotransferase 23 IU/L (<50); Albumin 4.3 g/dL (3.5-5.0); Albumin Globulin Ratio 1.2 (1.0-2.8); Alkaline Phosphatase 86 U/L (38-126); Aspartate Aminotransferase 28 IU/L (17-59); Bilirubin Total 0.7 mg/dL (0.2-1.3); Bilirubin Unconjugated 0.7 mg/dL (0.0-1.1); Globulin 3.6 g/dL (1.7-4.1); HEMOLYSIS < 15 (0-50); Total Protein 7.9 g/dL (6.3-8.2)
== END ==
PROVIDERS: PCP Internal Medicine; Referring Provider Internal Medicine Critical Care Medicine; Visit Provider Internal Medicine Critical Care Medicine
DX: J84.9 Interstitial pulmonary disease, unspecified (principal); Z79.899 Other long term (current) drug therapy; R33.8 Other retention of urine; Z87.440 Personal history of urinary (tract) infections; Z87.438 Personal history of other diseases of male genital organs
CPT/HCPCS: 36415; 51798; 80076; 99213

== ENCOUNTER → 2021-08-02 09:32 | Outpatient (CLI) | payer MEDICARE, OTHER, SELFPAY | PROVIDERS: PCP Internal Medicine; Visit Provider Urology | DX: R33.9 Retention of urine, unspecified (principal); N31.2 Flaccid neuropathic bladder, not elsewhere classified; Z87.440 Personal history of urinary (tract) infections | CPT/HCPCS: 51798; 81002; 87077; 87086; 87186; 99214 ==

== ENCOUNTER → 2021-09-04 14:29 | Outpatient (CLI) | payer MEDICARE, OTHER, SELFPAY ==
[2021-09-04 15:49] LABS: Alanine Aminotransferase 21 IU/L (<50); Albumin 4.6 g/dL (3.5-5.0); Albumin Globulin Ratio 1.2 (1.0-2.8); Alkaline Phosphatase 71 U/L (38-126); Aspartate Aminotransferase 32 IU/L (17-59); Bilirubin Total 0.5 mg/dL (0.2-1.3); Bilirubin Unconjugated 0.4 mg/dL (0.0-1.1); Globulin 3.7 g/dL (1.7-4.1); HEMOLYSIS < 15 (0-50); Total Protein 8.3 g/dL (6.3-8.2)
== END ==
PROVIDERS: PCP Internal Medicine; Referring Provider Internal Medicine Critical Care Medicine; Visit Provider Internal Medicine Critical Care Medicine
DX: J84.9 Interstitial pulmonary disease, unspecified (principal); R33.8 Other retention of urine; N31.2 Flaccid neuropathic bladder, not elsewhere classified; Z79.890 Hormone replacement therapy
CPT/HCPCS: 36415; 80076; 81002; 99213

== ENCOUNTER → 2021-09-27 17:08 | Outpatient (CLI) | payer MEDICARE, OTHER, SELFPAY ==
--- NOTE | 2021-09-27 | DI.MRI.S_ITS ---
PROCEDURE: MR CERVICAL SPINE WO CON INDICATIONS: radiculopathy, site unspecified TECHNIQUE: Noncontrast sagittal T1 spin echo and T2 fast spin echo, sagittal STIR, foraminal oblique sagittal T2 fast spin echo, and axial gradient echo or T2 fast spin echo through the cervical spine. COMPARISON: None. FINDINGS: Image quality: Excellent. Alignment and Curvature: There is normal bony alignment. Bone Marrow: Marrow demonstrates normal overall signal. Spinal Cord: Visualized spinal cord has normal size and signal. No cerebellar tonsillar herniation. Paraspinous Soft Tissues: No paravertebral masses. Prevertebral soft tissues are normal in thickness. C2-C3: Loss of disc signal. No central stenosis. No neural foraminal narrowing. No neural compression. C3-C4: Loss of disc signal. Mild, diffuse disc bulge. Small central disc protrusion. No central stenosis. Mild bilateral neural foraminal narrowing. No neural compression. C4-C5: Loss of disc signal. Mild, diffuse disc bulge. Mild narrowing of the central canal. Mild bilateral facet hypertrophy. Mild bilateral uncovertebral joint hypertrophy. Moderate right and severe left neural foraminal narrowing with compression of the exiting left C5 nerve root. C5-C6: Loss of disc signal and height. Mild to moderate diffuse disc bulge. Mild narrowing of the central canal. Mild bilateral facet hypertrophy. Mild bilateral uncovertebral joint hypertrophy. Mild right and moderate left neural foraminal narrowing. No neural compression. C6-C7: Loss of disc signal and height. Mild, diffuse disc bulge. Mild narrowing of the central canal. Mild bilateral facet hypertrophy. Mild left neural foraminal narrowing. No neural compression. C7-T1: Loss of disc signal. Mild, diffuse disc bulge. No central stenosis. No neural foraminal narrowing. No neural compression. IMPRESSION: 1. Multilevel degenerative disc disease. 2. Multilevel facet and uncovertebral arthropathy. 3. No severe central canal narrowing. 4. Severe left C4-C5 neural foraminal narrowing with compression of the exiting left C5 nerve root. Dictated by: Maritza Mclean MD, PhD on 09/28/2021 at 8:54 Approved by: Maritza Mclean MD, PhD on 09/28/2021 at 9:20
== END ==
PROVIDERS: PCP Internal Medicine; Referring Provider Student in an Organized Health Care Education/Training Program; Visit Provider Student in an Organized Health Care Education/Training Program
DX: M50.31 Other cervical disc degeneration, high cervical region (principal); M54.10 Radiculopathy, site unspecified; M48.02 Spinal stenosis, cervical region; M47.812 Spondylosis without myelopathy or radiculopathy, cervical region
CPT/HCPCS: 72141

== ENCOUNTER → 2021-11-14 09:03 | Outpatient (CLI) | payer MEDICARE, OTHER, SELFPAY ==
[2021-11-14 10:46] LABS: Alanine Aminotransferase 15 IU/L (<50); Albumin 4.1 g/dL (3.5-5.0); Albumin Globulin Ratio 1.2 (1.0-2.8); Alkaline Phosphatase 74 U/L (38-126); Aspartate Aminotransferase 26 IU/L (17-59); Bilirubin Total 0.4 mg/dL (0.2-1.3); Bilirubin Unconjugated 0.3 mg/dL (0.0-1.1); Globulin 3.3 g/dL (1.7-4.1); HEMOLYSIS < 15 (0-50); Total Protein 7.4 g/dL (6.3-8.2)
== END ==
PROVIDERS: PCP Internal Medicine; Referring Provider Internal Medicine Critical Care Medicine; Visit Provider Internal Medicine Critical Care Medicine
DX: Z79.899 Other long term (current) drug therapy (principal); J84.9 Interstitial pulmonary disease, unspecified
CPT/HCPCS: 36415; 80076

== ENCOUNTER → 2021-11-29 09:08 | Outpatient (CLI) | payer MEDICARE, OTHER, SELFPAY ==
[2021-11-29 10:06] LABS: COVID19 -Nasal RAPID Negative (Negative)
== END ==
PROVIDERS: PCP Internal Medicine; Referring Provider Internal Medicine; Visit Provider Internal Medicine
DX: Z01.818 Encounter for other preprocedural examination (principal)
CPT/HCPCS: 87635; C9803

== ENCOUNTER → 2021-11-30 07:39 | Outpatient (CLI) | payer MEDICARE, OTHER, SELFPAY ==
--- NOTE | 2021-12-06 08:33 | PM.PFT.1 ---
Pulmonary Function Test Referral & Results Date Patient Seen: 11/30/21 Requesting provider: Leigh Mercedes Results: The spirometry demonstrates an FVC of 4.04 L which is 92% of predicted. The FEV1 was measured at 3.32 L which is 104% of predicted. The FEV1/FVC ratio was 82 which is 112% of predicted. Following the administration of bronchodilator there was no notable change. Lung volumes show an SVC of 3.91 L which is 86% of predicted. The diffusing capacity was measured at 7.12 which is 22% of predicted. No hemoglobin value was provided, so no correction for potential anemia could be made, if appropriate. The maximum voluntary ventilation was normal Interpretation: This study demonstrates probably normal spirometry. 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
== END ==
PROVIDERS: PCP Internal Medicine; Referring Provider Internal Medicine; Visit Provider Internal Medicine
DX: J96.11 Chronic respiratory failure with hypoxia (principal); J98.8 Other specified respiratory disorders
CPT/HCPCS: 94060; 94726; 94729

== ENCOUNTER → 2021-12-05 10:38 | Outpatient (CLI) | payer MEDICARE, OTHER, SELFPAY | PROVIDERS: PCP Internal Medicine; Visit Provider Urology | DX: R30.0 Dysuria (principal); N31.2 Flaccid neuropathic bladder, not elsewhere classified; J84.112 Idiopathic pulmonary fibrosis; R82.81 Pyuria; Z78.9 Other specified health status | CPT/HCPCS: 87077; 87086; 87186; 99214 ==

== ENCOUNTER → 2022-03-07 09:53 | Outpatient (CLI) | payer MEDICARE, OTHER, SELFPAY ==
[2022-03-07 12:17] LABS: Alanine Aminotransferase 25 IU/L (<50); Albumin 4.6 g/dL (3.5-5.0); Albumin Globulin Ratio 1.4 (1.0-2.8); Alkaline Phosphatase 69 U/L (38-126); Aspartate Aminotransferase 32 IU/L (17-59); Bilirubin Total 0.4 mg/dL (0.2-1.3); Bilirubin Unconjugated 0.2 mg/dL (0.0-1.1); Globulin 3.4 g/dL (1.7-4.1); HEMOLYSIS 19 (0-50)
== END ==
PROVIDERS: PCP Internal Medicine; Referring Provider Internal Medicine Critical Care Medicine; Visit Provider Internal Medicine Critical Care Medicine
DX: J84.9 Interstitial pulmonary disease, unspecified (principal); J84.112 Idiopathic pulmonary fibrosis; N31.2 Flaccid neuropathic bladder, not elsewhere classified; Z78.9 Other specified health status; Z87.440 Personal history of urinary (tract) infections; Z87.438 Personal history of other diseases of male genital organs
CPT/HCPCS: 36415; 80076; 81002; 99214

== ENCOUNTER → 2022-05-08 12:11 | Outpatient (CLI) | payer MEDICARE, OTHER, SELFPAY ==
[2022-05-08 14:08] LABS: Alanine Aminotransferase 29 IU/L (<50); Albumin 4.4 g/dL (3.5-5.0); Albumin Globulin Ratio 1.2 (1.0-2.8); Alkaline Phosphatase 84 U/L (38-126); Aspartate Aminotransferase 36 IU/L (17-59); Bilirubin Total 0.3 mg/dL (0.2-1.3); Bilirubin Unconjugated 0.2 mg/dL (0.0-1.1); Globulin 3.8 g/dL (1.7-4.1); HEMOLYSIS < 15 (0-50); Total Protein 8.2 g/dL (6.3-8.2)
== END ==
PROVIDERS: PCP Internal Medicine; Referring Provider Internal Medicine Critical Care Medicine; Visit Provider Internal Medicine Critical Care Medicine
DX: Z79.899 Other long term (current) drug therapy (principal)
CPT/HCPCS: 36415; 80076

== ENCOUNTER → 2022-07-04 11:36 | Outpatient (CLI) | payer MEDICARE, OTHER, SELFPAY ==
[2022-07-04 12:22] LABS: Alanine Aminotransferase 31 IU/L (<50); Albumin 4.4 g/dL (3.5-5.0); Albumin Globulin Ratio 1.2 (1.0-2.8); Alkaline Phosphatase 71 U/L (38-126); Aspartate Aminotransferase 34 IU/L (17-59); Bilirubin Total 0.4 mg/dL (0.2-1.3); Bilirubin Unconjugated 0.1 mg/dL (0.0-1.1); Globulin 3.6 g/dL (1.7-4.1); HEMOLYSIS < 15 (0-50)
== END ==
PROVIDERS: PCP Internal Medicine; Referring Provider Internal Medicine Critical Care Medicine; Visit Provider Internal Medicine Critical Care Medicine
DX: Z79.899 Other long term (current) drug therapy (principal); J84.9 Interstitial pulmonary disease, unspecified
CPT/HCPCS: 36415; 80076

== ENCOUNTER → 2022-08-03 08:08 | Outpatient (CLI) | payer MEDICARE, OTHER, SELFPAY ==
[2022-08-03 09:10] LABS: Alanine Aminotransferase 35 IU/L (<50); Albumin 4.4 g/dL (3.5-5.0); Albumin Globulin Ratio 1.3 (1.0-2.8); Alkaline Phosphatase 79 U/L (38-126); Aspartate Aminotransferase 39 IU/L (17-59); BUN Creatinine Ratio 16.3 (6-22); Bilirubin Total 0.4 mg/dL (0.2-1.3); Bilirubin Unconjugated 0.1 mg/dL (0.0-1.1); Blood Urea Nitrogen 17 mg/dL (9-20); Calcium 10.1 mg/dL (8.4-10.2); Carbon Dioxide 29 mmol/L (22-32); Chloride 103 mmol/L (98-107); Estimated Glomerular Filt Rate > 60 mL/min (>60); Globulin 3.4 g/dL (1.7-4.1); Glucose 79 mg/dL (80-110); HEMOLYSIS < 15 (0-50); Potassium 5.2 mmol/L (3.4-5.1); Sodium 141 mmol/L (137-145); Total Protein 7.8 g/dL (6.3-8.2)
[2022-08-06 12:06] LABS: Cholesterol, Total 123 mg/dL (100-199); HDL-Cholesterol 48 mg/dL (>39); LDL Particle 817 nmol/L (<1000); LDL Size 20.7 nm (>20.5); LDL-Cholsterol 59 mg/dL (0-99); LP-IR Score 44 (<=45); Small LDL- Particle 374 nmol/L (<=527); Triglycerides 80 mg/dL (0-149)
== END ==
PROVIDERS: PCP Internal Medicine; Referring Provider Specialist; Visit Provider Specialist
DX: E78.00 Pure hypercholesterolemia, unspecified (principal); Z79.899 Other long term (current) drug therapy; J84.9 Interstitial pulmonary disease, unspecified
CPT/HCPCS: 36415; 80053; 80061; 80076; 83704

== ENCOUNTER → 2022-09-14 10:47 | Outpatient (CLI) | payer MEDICARE, OTHER, SELFPAY | PROVIDERS: PCP Internal Medicine; Visit Provider Urology | DX: N39.0 Urinary tract infection, site not specified (principal); B96.89 Other specified bacterial agents as the cause of diseases classified elsewhere; R33.9 Retention of urine, unspecified; N31.2 Flaccid neuropathic bladder, not elsewhere classified; Z78.9 Other specified health status | CPT/HCPCS: 51798; 81002; 87077; 87086; 87186; 99213 ==

== ENCOUNTER → 2022-10-25 10:44 | Outpatient (CLI) | payer MEDICARE, OTHER, SELFPAY ==
[2022-10-25 13:08] LABS: Alanine Aminotransferase 33 IU/L (<50); Albumin 4.3 g/dL (3.5-5.0); Albumin Globulin Ratio 1.3 (1.0-2.8); Alkaline Phosphatase 72 U/L (38-126); Aspartate Aminotransferase 38 IU/L (17-59); Bilirubin Total 0.6 mg/dL (0.2-1.3); Bilirubin Unconjugated 0.2 mg/dL (0.0-1.1); Globulin 3.4 g/dL (1.7-4.1); HEMOLYSIS 23 (0-50); Total Protein 7.7 g/dL (6.3-8.2)
== END ==
PROVIDERS: PCP Internal Medicine; Referring Provider Internal Medicine Critical Care Medicine; Visit Provider Internal Medicine Critical Care Medicine
DX: Z79.899 Other long term (current) drug therapy (principal); J84.9 Interstitial pulmonary disease, unspecified
CPT/HCPCS: 36415; 80076

== ENCOUNTER → 2022-12-04 11:59 | Outpatient (CLI) | payer MEDICARE, OTHER, SELFPAY ==
[2022-12-04 12:22] LABS: Appearance Urine UA CLEAR; Bilirubin Urine UA NEGATIVE (NEGATIVE); Color Urine UA YELLOW; Glucose Urine UA NEGATIVE (Negative); Ketones Urine UA NEGATIVE (NEGATIVE); Leukocyte Esterase Urine UA 3+ (NEGATIVE); Nitrite Urine UA NEGATIVE (Negative); Occult Blood Urine UA TRACE-INTACT (Negative); Protein Urine UA NEGATIVE (Negative); Specific Gravity Urine UA <=1.005 (1.000-1.035); Urobilinogen Urine UA 0.2 E.U./dL (0.2); pH Urine UA 6.5 (4.5-8.0)
[2022-12-04 12:47] LABS: Bacteria Urine Few (2-10); RBC Urine 0-1/HPF (0-5/HPF); Squamous Epithelial Cell Urine 0-1 /HPF (0-5/HPF); WBC Urine 30-100/HPF (0-5/HPF)
[2022-12-04 12:48] LABS: Culture Indicated Urine Specimen Cultured
[2022-12-04 21:30] LABS: Alanine Aminotransferase 31 IU/L (<50); Albumin 4.5 g/dL (3.5-5.0); Albumin Globulin Ratio 1.2 (1.0-2.8); Alkaline Phosphatase 89 U/L (38-126); Aspartate Aminotransferase 33 IU/L (17-59); Bilirubin Total 0.4 mg/dL (0.2-1.3); Bilirubin Unconjugated 0.1 mg/dL (0.0-1.1); Globulin 3.8 g/dL (1.7-4.1); HEMOLYSIS < 15 (0-50); Total Protein 8.3 g/dL (6.3-8.2)
== END ==
PROVIDERS: Internal Medicine Critical Care Medicine; PCP Internal Medicine; Referring Provider Urology; Visit Provider Urology
DX: J84.9 Interstitial pulmonary disease, unspecified (principal); Z79.890 Hormone replacement therapy; N31.2 Flaccid neuropathic bladder, not elsewhere classified; R33.8 Other retention of urine; R30.0 Dysuria; N39.0 Urinary tract infection, site not specified; R33.9 Retention of urine, unspecified; Z78.9 Other specified health status
CPT/HCPCS: 36415; 80076; 81001; 87077; 87086; 87147

== ENCOUNTER → 2022-12-24 09:16 | Outpatient (CLI) | payer MEDICARE, OTHER, SELFPAY ==
[2022-12-24 10:02] LABS: Add Manual Diff / Slide Review NO; Basophils Absolute Auto 0 /uL (0-100); Basophils Percent Auto 0.1 % (0-2); Eosinophils Absolute Auto 0 /uL (0-450); Eosinophils Percent Auto 0.3 % (2-4); Hematocrit 41.3 % (41-53); Hemoglobin 14.3 g/dL (13.5-17.5); Lymphocytes Absolute Auto 1400 /uL (1100-4500); Lymphocytes Percent Auto 10.6 % (25-40); Mean Corpuscular HGB Conc 34.5 % (30-36); Mean Corpuscular Hemoglobin 34.1 PG (26-34); Mean Corpuscular Volume 98.7 fL (80-100); Monocytes Absolute Auto 300 /uL (0-900); Monocytes Percent Auto 2.5 % (3-14); Neutrophils Absolute Auto 11500 /uL (1500-7000); Neutrophils Percent Auto 86.5 % (50-75); Platelet Count 251 X10^3/uL (150-400); Red Blood Cell Count 4.19 X10^6/uL (4.5-5.9); White Blood Cell Count 13.3 X10^3/uL (4.5-11.0)
[2022-12-24 10:13] LABS: Alanine Aminotransferase 32 IU/L (<50); Albumin 4.3 g/dL (3.5-5.0); Albumin Globulin Ratio 1.2 (1.0-2.8); Alkaline Phosphatase 82 U/L (38-126); Aspartate Aminotransferase 33 IU/L (17-59); BUN Creatinine Ratio 15.3 (6-22); Bilirubin Total 0.5 mg/dL (0.2-1.3); Blood Urea Nitrogen 17 mg/dL (9-20); Carbon Dioxide 27 mmol/L (22-32); Chloride 100 mmol/L (98-107); Cholesterol 131 mg/dL (140-199); Estimated Glomerular Filt Rate > 60 mL/min (>60); Globulin 3.5 g/dL (1.7-4.1); Glucose 98 mg/dL (80-110); HDL Cholesterol 60 mg/dL (40-60); HEMOLYSIS < 15 (0-50); LDL Cholesterol Calculated 57 mg/dL (<100); Sodium 136 mmol/L (137-145); Total Protein 7.8 g/dL (6.3-8.2); Triglycerides 69 mg/dL (35-150)
== END ==
PROVIDERS: PCP Internal Medicine; Visit Provider Specialist
DX: E78.5 Hyperlipidemia, unspecified (principal); R06.09 Other forms of dyspnea
CPT/HCPCS: 36415; 80053; 80061; 85025

== ENCOUNTER → 2023-01-12 08:25 | Outpatient (CLI) | payer MEDICARE, OTHER, SELFPAY ==
[2023-01-12 09:19] LABS: Hematocrit 44.6 % (41-53); Hemoglobin 15.1 g/dL (13.5-17.5); Mean Corpuscular HGB Conc 33.9 % (30-36); Mean Corpuscular Volume 100.2 fL (80-100); Platelet Count 231 X10^3/uL (150-400); Red Blood Cell Count 4.45 X10^6/uL (4.5-5.9); Red Cell Distribution Width 14.3 % (11.6-14.8); White Blood Cell Count 14.2 X10^3/uL (4.5-11.0)
[2023-01-12 09:46] LABS: BUN Creatinine Ratio 17.8 (6-22); Blood Urea Nitrogen 18 mg/dL (9-20); Calcium 9.6 mg/dL (8.4-10.2); Carbon Dioxide 33 mmol/L (22-32); Chloride 97 mmol/L (98-107); Estimated Glomerular Filt Rate > 60 mL/min (>60); Glucose 81 mg/dL (80-110); HEMOLYSIS < 15 (0-50); Potassium 4.4 mmol/L (3.4-5.1); Sodium 136 mmol/L (137-145)
== END ==
PROVIDERS: PCP Internal Medicine; Referring Provider Internal Medicine Cardiovascular Disease; Visit Provider Internal Medicine Cardiovascular Disease
DX: I25.118 Atherosclerotic heart disease of native coronary artery with other forms of angina pectoris (principal)
CPT/HCPCS: 36415; 80048; 85027

== ENCOUNTER → 2023-01-25 09:01 | Outpatient (CLI) | payer MEDICARE, OTHER, SELFPAY ==
--- NOTE | 2023-01-25 | DI.ECHO.S_ITS ---
[facility] +---------+ : : [address] : : : : [id number] : : : : Phone: [phone]---------+ Echocardiogram Report + + :Name: LAUREN VENTURA Study Date: 01/25/2023 Height: 69 in : :[facility] ReadingLocation: Weight: 150 lb : : Gender: Male BSA: 1.8 m2 : :: 1950 Age: 72 yrs BP: 113/66 mmHg: :Reason For Study: ANGINA : :Ordering Physician: JAQUI, : :JESSICA Performed By: Lena Hartley : :Referring: JESSICA DICKINSON : + + Interpretation Summary The ejection fraction is estimated to be 55-60%. Left ventricular wall motion is normal. Borderline right ventricular enlargement. There is mild mitral regurgitation. There is mild tricuspid regurgitation. The right ventricular systolic pressure is estimated to be at least 51 mmHg based on an estimated right atrial pressure of 8 mm Hg. Procedure: A two-dimensional transthoracic echocardiogram with color flow and Doppler was performed. The study quality was technically adequate. Comparison is made with the echocardiogram of 05/25/2021. The patient was in sinus bradycardia with heart rates between 49-52 bpm during the exam. Left Ventricle: The left ventricle is normal in size and wall thickness. The ejection fraction is estimated to be 55-60%. Left ventricular wall motion is normal. The interventricular septum is flattened, consistent with a right ventricular pressure/volume condition. Right Ventricle: Borderline right ventricular enlargement. The right ventricular systolic function is normal. Atria: The left atrial size is normal. Right atrial size is normal. There is no Doppler evidence for an interatrial shunt. Mitral Valve: The mitral valve is normal in structure and function. There is mild mitral regurgitation. Aortic Valve: The aortic valve is trileaflet. The aortic valve opens well. There is no aortic valve stenosis. No aortic regurgitation is present. Tricuspid Valve: The tricuspid valve is normal in structure and function. There is mild tricuspid regurgitation. The right ventricular systolic pressure is estimated to be at least 51 mmHg based on an estimated right atrial pressure of 8 mm Hg. Pulmonic Valve: The pulmonic valve leaflets are thin and pliable; valve motion is normal. There is no pulmonic valvular regurgitation. Great Vessels: The aortic root is borderline dilated. The ascending aorta is at the upper limits of normal in size. The IVC is of normal diameter and collapses greater than 50% with a sniff. This suggests a low right atrial pressure of 3 mm Hg. Pericardium/ Pleura There is no pericardial effusion. There is no pleural effusion. MMode/2D Measurements & Calculations LVIDd: 4.3 cm LVOT diam: 2.3 cm LVIDs: 2.5 cm Ao root diam: 3.0 cm FS: 41.6 % asc Aorta Diam: 3.6 cm EPSS: 0.46 cm Ao Arch Diam (Prox Trans): 2.5 cm IVSd: 0.66 cm LVPWd: 0.78 cm LV wick. diameter/BSA (cm/m^2): 2.4 LV sys. diameter/BSA (cm/m^2): 1.4 LA A2 area: 19.6 cm2 RA long axis: 4.2 cm LA A4 area: 17.7 cm2 RA area: 14.3 cm2 LA length (vol): 5.0 cm RA vol: 41.1 ml LA vol: 59.2 ml RA : 22.5 ml/m2 LA vol index: 32.4 ml/m2 IVC diam: 1.6 cm RVD1 (basal): 3.5 cm RVD2 (mid): 2.9 cm TAPSE: 2.2 cm Doppler Measurements & Calculations Ao V2 max: 112.3 cm/sec LVOT Max Tony: 83.2 cm/sec Ao V2 mean: 84.9 cm/sec LV V1 max P.8 mmHg Ao max P.0 mmHg LV V1 VTI: 19.5 cm Ao mean P.1 mmHg RENAN(I,D): 2.9 cm2 Ao V2 VTI: 28.7 cm RENAN(V,D): 3.1 cm2 sev ratio: 0.68 RENAN indexed to BSA (cm^2/m^2): 1.6 MV E max tony: 72.5 cm/sec TR max tony: 346.8 cm/sec MV A max tony: 56.8 cm/sec TR max P.1 mmHg MV E/A: 1.3 PA V2 max: 67.7 cm/sec Med Peak E' Tony: 8.3 cm/sec PA V2 mean: 48.9 cm/sec E/E' med: 8.8 PA mean P.1 mmHg Lat Peak E' Tony: 11.0 cm/sec PA pr(Accel): 32.8 mmHg E/E' lat: 6.6 E/e' average: 7.7 MV dec time: 0.25 sec SV(LVOT): 82.2 ml Reading Physician:04:32 PM
== END ==
PROVIDERS: PCP Internal Medicine; Referring Provider Internal Medicine Cardiovascular Disease; Visit Provider Internal Medicine Cardiovascular Disease
DX: I20.2 Refractory angina pectoris (principal); I08.1 Rheumatic disorders of both mitral and tricuspid valves
CPT/HCPCS: 93306

== ENCOUNTER → 2023-02-18 15:18 | Outpatient (CLI) | payer MEDICARE, OTHER, SELFPAY ==
[2023-02-18 15:58] LABS: Alanine Aminotransferase 48 IU/L (<50); Albumin 4.4 g/dL (3.5-5.0); Albumin Globulin Ratio 1.3 (1.0-2.8); Alkaline Phosphatase 67 U/L (38-126); Aspartate Aminotransferase 39 IU/L (17-59); Bilirubin Total 0.3 mg/dL (0.2-1.3); Bilirubin Unconjugated 0.2 mg/dL (0.0-1.1); Globulin 3.5 g/dL (1.7-4.1); HEMOLYSIS 21 (0-50); Total Protein 7.9 g/dL (6.3-8.2)
== END ==
PROVIDERS: PCP Internal Medicine; Referring Provider Internal Medicine Critical Care Medicine; Visit Provider Internal Medicine Critical Care Medicine
DX: Z79.899 Other long term (current) drug therapy (principal); J84.9 Interstitial pulmonary disease, unspecified
CPT/HCPCS: 36415; 80076

== ENCOUNTER → 2023-04-26 13:33 | Outpatient (CLI) | payer MEDICARE, OTHER, SELFPAY ==
[2023-04-26 15:32] LABS: Appearance Urine UA CLEAR; Bilirubin Urine UA NEGATIVE (NEGATIVE); Color Urine UA YELLOW; Glucose Urine UA NEGATIVE (Negative); Ketones Urine UA NEGATIVE (NEGATIVE); Leukocyte Esterase Urine UA 2+ (NEGATIVE); Nitrite Urine UA NEGATIVE (Negative); Occult Blood Urine UA NEGATIVE (Negative); Protein Urine UA NEGATIVE (Negative); Urobilinogen Urine UA 0.2 E.U./dL (0.2)
[2023-04-26 15:41] LABS: Bacteria Urine Many (>30); Culture Indicated Urine Specimen Cultured; RBC Urine None Seen (0-5/HPF); Squamous Epithelial Cell Urine None Seen (0-5/HPF); WBC Urine 5-10/HPF (0-5/HPF)
--- OUTSIDE RECORDS SUMMARY | 2023-05-09 08:57 | XMS_ITS | Referral Summary ---
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 ([facility]) Mynor Moreno MD [address] [place] [id number] [address] Referral ID Status Reason Start Date Expiration Date Visits Requested Visits Authorized [id number] Authorized Specialty Services Required 04/11/2023 04/05/2024 6 6 Reason for Visit * Reason Comments Chest Pain Coronary Artery Disease Hypertension Hyperlipidemia Shortness of Breath Encounter Details Date Type Department Care Team Description 04/11/2023 9:40 AM PDT Office Visit [facility] [address], [place] [address] Mynor Moreno MD [address] [place] [id number] 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 ([facility]) (Primary Dx); Dyspnea on exertion; Stable angina pectoris; Hypercholesterolemia Allergies Active Allergy Reactions Criticality Noted Date Comments Morphine GI intolerance,Nause a And Vomiting High 04/15/2017 Other reaction(s): Vomiting Other reaction(s): GI Upset Other reaction(s): Vomiting Other reaction(s): Vomiting Other reaction(s): GI Upset Other reaction(s): Vomiting documented as of this encounter (statuses as of 04/11/2023) Medications Medication Sig Dispensed Refills Start Date End Date Status pirfenidone (Esbriet) 267 mg tablet Take 2 tablets by mouth 3 (three) times a day Takes 237mg, 9 tablet a day (2,133mg) 0 05/21/2019 Active azithromycin (ZITHROMAX) 250 mg tablet Take 1 tablet every Saturday, Saturday and Saturday continously. 0 12/21/2021 Active guaiFENesin (HUMIBID 3) 400 mg tablet Take 1 tablet (400 mg total) by mouth every 4 (four) hours 0 Active multivit-min/foli c/vit K/lycop (ONE-A-DAY MEN'S 50 PLUS ORAL) Take 5 mg by mouth daily 0 Active predniSONE (DELTASONE) 10 mg tablet Take 1 tablet (10 mg total) by mouth daily 25 mg this Am 0 12/12/2022 Active aspirin 81 mg EC tablet Take 1 tablet (81 mg total) by mouth daily 90 tablet 3 12/24/2022 12/24/2023 Active nitroglycerin (NITROSTAT) 0.4 mg SL tablet as needed 0 01/17/2023 Active hydrogen peroxide 3 % spray,non-aerosol Apply topically 0 Ac tive pantoprazole (PROTONIX) 40 mg EC tablet Take 1 tablet (40 mg total) by mouth 0 03/30/2023 Active amLODIPine (NORVASC) 5 mg tablet Take 0.5 tablets (2.5 mg total) by mouth daily 90 tablet 3 04/11/2023 Active clopidogreL (PLAVIX) 75 mg tablet Take 1 tablet (75 mg total) by mouth daily 90 tablet 3 04/11/2023 Active ezetimibe (ZETIA) 10 mg tablet Take 1 tablet (10 mg total) by mouth daily 90 tablet 3 04/11/2023 Active rosuvastatin (CRESTOR) 20 mg tablet Take 1 tablet (20 mg total) by mouth nightly 90 tablet 3 04/11/2023 Active metoprolol succinate XL (TOPROL-XL) 25 mg 24 hr tablet Take 1 tablet (25 mg total) by mouth daily 90 tablet 3 04/11/2023 Active esomeprazole (NexIUM) 20 mg capsule Take 1 capsule (20 mg total) by mouth every morning before breakfast 0 04/11/2023 Discontinued (Therapy completed) amLODIPine (NORVASC) 5 mg tablet Take 0.5 tablets (2.5 mg total) by mouth daily 90 tablet 3 03/20/2023 04/11/2023 Discontinued (Reorder) ezetimibe (ZETIA) 10 mg tablet Take 1 tablet (10 mg total) by mouth daily 90 tablet 3 03/20/2023 04/11/2023 Discontinued (Reorder) metoprolol succinate XL (TOPROL-XL) 50 mg 24 hr tablet Take 0.5 tablets (25 mg total) by mouth daily 90 tablet 3 03/20/2023 04/11/2023 Discontinued (Reorder) rosuvastatin (CRESTOR) 20 mg tablet Take 1 tablet (20 mg total) by mouth nightly 90 tablet 3 03/20/2023 04/11/2023 Discontinued (Reorder) clopidogreL (PLAVIX) 75 mg tablet Take 1 tablet (75 mg total) by mouth daily 0 04/11/2023 Discontinued (Reorder) metoprolol succinate XL (TOPROL-XL) 50 mg 24 hr tablet Take 0.5 tablets (25 mg total) by mouth daily 90 tablet 3 04/11/2023 04/11/2023 Discontinued (Reorder) documented as of this encounter (statuses as of 04/11/2023) Active Problems Problem Noted Date Diagnosed Date Cataract 04/07/2021 Hearing loss 04/07/2021 Hypercholesterolemia 04/07/2021 Bradycardia 04/07/2021 Pulmonary emboli 07/04/2018 Chronic anticoagulation 07/04/2018 Diffuse interstitial pulmonary fibrosis 07/04/19 19 Chest pain 07/04/2018 History of pulmonary embolus (PE) 06/17/2017 Chronic respiratory failure with hypoxia 017 Interstitial lung disease 06/07/2017 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 03/27/2017 Dyslipidemia 03/27/2017 Chronic prostatitis 03/27/2017 Memory deficit 03/27/2017 Dyspnea on exertion 03/27/2017 GERD (gastroesophageal reflux disease) 7 S/P drug eluting coronary stent placement 2016 Overview: To left circumflex, 08/2010 To left circumflex, 08/2010 To left circumflex, 08/2010 To left circumflex, 08/2010 To left circumflex, 08/2010 documented as of this encounter (statuses as of 04/11/2023) Immunizations Name Administration Dates Next Due FLU High Dose 65+ (Fluzone) 04/29/2019, 8,07/08/2017 Influenza, Quadrivalent 02/26/2020 Influenza, Seasonal, Injectable 07/09/2017 Moderna SARS-CoV-2 Vaccine Monovalent 08/03/2020 ,07/06/2020 documented as of this encounter Social History Tobacco Use Types Packs/Day Years Used Date Smoking Tobacco: Never Smokeless Tobacco: Never Tobacco Cessation:Counseling Given: Not Answered Alcohol Use Standard Drinks/Week Comments Yes 0 (1 standard drink = 0.6 oz pur e alcohol) 1-2 times per month Sex and Gender Information Value Date Recorded Sex Assigned at Male 03/06/2019 9:00 AM PDT Gender Identity Male 03/06/2019 9:00 AM PDT Sexual Orientation Straight 03/06/2019 9: 00 AM PDT Job Start Date Occupation Industry Not on file Not on file Not on file documented as of this encounter Last Filed Vital Signs Vital Sign Reading Time Taken Comments Blood Pressure 98/50 04/11/2023 9:29 AM PDT Pulse 56 04/11/2023 9:29 AM PDT Temperature - - Respiratory Rate - - Oxygen Saturation 95% 04/11/2023 9:29 AM PDT Inhaled Oxygen Concentration - - Weight 69.7 kg (153 lb 9.6 oz) 04/11/2023 9:29 A M PDT Height 175.3 cm (5' 9.02) 04/11/2023 9:29 AM PD T Body Mass Index 22.67 04/11/2023 9:29 AM PDT documented in this encounter Progress Notes * Julita Garcia MA - 04/11/2023 9:40 AM PDT Continue same medications, make sure that you take clopidogrel and aspirin without fail. I have submitted a referral for cardiac rehab at [facility]. He should follow-up with me in 4 months with a CMP, NMR LipoProfile, and ECG. * Mynor Moreno MD - 04/11/2023 9:40 AM PDT Subjective Patient ID: Ozzy Alcazar Jr. is a 72 y.o. male that had concerns including Chest Pain, Coronary Artery Disease, Hypertension, Hyperlipidemia, and Shortness of Breath. HPI: Alberto returns with his CAD diagnosed in 2010 with exertional dyspnea and intrascapular pain with cardiac catheterization showing an 80% proximal left circumflex stenosis with moderate disease in the LAD and RCA. He received a drug-eluting stent to the circumflex with a stress test in February 2012 that was normal. His echo in 2015 for progressive dyspnea showed normal left and right ventricular size and function without any valvular abnormality. In 2016, he reported progressive but unpredictable exertional dyspnea and palpitations. His perfusion stress test showed an CIRO of -9% without anginawith moderate ST segment depression but normal LV systolic function with an EF of 78% and normal perfusion imaging, although exercise oximetry showed hypoxia down to 81% consistent with intrinsic lung disease. Subsequent chest CT and evaluation suggesting multiple small pulmonary emboli and possible fibrosis with hilar lymphadeno-mary alice. He was started on warfarin and was confirmed to have pulmonary fibrosis and was started on supplemental oxygen and pirfenidone treatment. He was referred for possible lung transplantation but he subsequently symptomatically improved. He reported brief episodes of nonexertional back pain and positional lightheadedness and his Zio monitor from February 2019 showed a normal chronotropic response with brief runs of SVT that did not correlate with his episodes. A standard treadmill study on 05/12/2019 showed an CIRO of 0% with a normal hemodynamic response and [address] depression at peak exercise with desaturation down to 80% on 4 L of nasal cannula. His pharmacologic perfusion study in 03/27/2019 showed normal left ventricularfunction without perfusion defects and an EF of 78%. He reported improvement in his exertional dyspnea, only rarely requiring supplemental oxygen, and with dyspnea only at the beginning of exertion. His reported concerns for possible sleep apnea although he declined further evaluation. His lung disease has been followed by [facility] pulmonology with occasional dyspnea in the morning that improved with further activity. He reported myalgias on rosuvastatin 40 mg daily that resolved when reduced to 20 mg, but that returned when he reattempted 40 mg and therefore went back to 20 mg and was started on ezetimibe 10 mg daily. At his visit on 04/07/2021, he reported an intrascapular ache, reminiscent of his previous angina, occasionally radiating into his left shoulder without any chest discomfort and was walking 1 mile with occasional provocation of the discomfort but in an unpredictable pattern and typically resolved with rest or applying supplemental oxygen. Heart rates were occasionally in the 40s with perceived fatigue but was not checking his blood pressures on any regular basis. His 7-day Zio monitor from April 2021 showed a normal chronotropic response without profound bradycardia and only rare PACs and PVCs with a 10 beat run of SVT but no other concerning arrhythmia. His symptomatic episodes corresponded to sinus rhythm at 68 to 134 bpm, most of the higher end of this range without any arrhythmia or ST segment deviation. His echo on 05/25/2021 showed an EF of 60 to 65% and was unchanged with probable normal filling pressures. The right ventricle was normal and unchanged with a PAP of 46 mmHg and a CVP of 3 mmHg, higher than previous, although that exam may have underestimated his PAP. His perfusion study on 05/25/2021 showed an ejection fraction of 74% without focal abnormality and no perfusion defects. He reported progressive vertigo that kept him from exercising although walked 40 minutes 3 times a week without any exertional chest or back discomfort or change in his chronic exertional dyspnea. His noncontrast chest CT from 05/10/2022 again showed extensive septal thickening consistent with progressive bilateral chronic interstitial disease, and PFTs from 06/20/2022 showed an FEV1 of 114% predicted with FEF 25-75% of 144% predicted. Lung volumes were 81% predicted with diffusion capacity of 15% predicted with desaturation with exercise down to 70%, improving to 88% with 3 L of nasal cannula and 90% with 4 L of nasal cannula. He reported progressive dyspnea yet was able to walk 40 to 60 minutes at a relatively slow pace although with a slight decline in his exercise capacity because of his exertional dyspnea but without any anginal chest discomfort although reported occasional chest stiffness that resolved with relaxing and stretching his chest muscles. He reported progressive distal extremity cyanosis and that was unaffected by wearing gloves. He reported mild postural lightheadedness but his vertigo had essentially resolved. He saw Selene Partida on 12/24/2022 reporting a 6-week history of exertional chest tightness radiating into his arms that had been progressive over the previous several weeks. A chest CT by his clinical data management manager apparently showed severe coronary calcification and he was referred to Dr. Dickinson who performed cardiac catheterization on 01/17/2023, revealing a separate LAD ostium with a 60% ostial stenosisand an occluded proximal left circumflex with an obtuse marginal filling via left to left collaterals. The RCA was occluded proximally with [id number] collaterals and he was referred for cardiac surgery and seen by Dr. Braga on 02/04/2023 and felt to not be a surgical candidate because of his lung disease. He was subsequently discussed at a multidisciplinary conference with subsequent referralfor percutaneous revascularization. At his last visit on 03/20/2023, he felt unchanged, continuing to note occasional mild (2/10) chestburning with walking that promptly stops with rest that he felt had been fairly longstanding and without any recent significant change. [place] but slower and less often, typically 1-2 times a week, and occasionally shortened his walk but was predominantly limited by his exertional dyspnea which had been slightly progressive despite using 5 L of nasal cannula on a regular basis. He continued to have mild postural lightheadedness but none otherwise and felt this was slightly progressive and worse when he has disrupted sleep. He was not checking his blood pressures and was scheduled for an appointment with the [facility] wellness coach on 03/25/2023to discuss possible percutaneous revascularization of his coronary disease. His metoprolol was reduced from 50 mg to 25 mg daily and he was urged to follow-up with the [facility] music leader. He was seen by the wellness coach and agreed to proceed with revascularization which was performed on03/29/2023, revealing an LVEDP of 24 mmHg. He had drug- eluting stents placed to the 80% ostial LAD lesion and to the occluded left circumflex was discharged on clopidogrel 75 mg daily in addition to aspirin 81 mg daily and started on amlodipine 2.5 mg daily. He was scheduled for follow-up with me at the request of his [facility] wellness coach to discuss revascularization of the RCA. Alberto returns today reporting feeling much improved for several days following his procedure but with notable worsening of his exertional dyspnea and endurance following that, but without any recurrent chest discomfort. He is walked several times for around 20 minutes without any chest pain and he denies any resting dyspnea but continues to use his oxygen supplementation. He noted no significant change in his exercise capacity since reduction in his metoprolol at his last visit although states that his postural lightheadedness has essentially resolved. Home blood pressures have remained in [id number] range but using a wrist cuff and denies any lightheadedness. He had no pedal edema and has noted no change in his distal cyanosis. He has been taking his aspirin and clopidogrel regularly and denies any pain at the right radial wrist site after some initial bruising. He apparently is scheduled for intervention on the right coronary artery in around 1 month but has many questions, specifically in regards to whether this will improve blood flow to the lungs. His ECG from today shows sinus rhythm at 50 bpm with probable LVH and an early transition across the precordium but no significant change from the previous ECG. The most recent labs from 03/18/2023 showed a BUN of 18 (17 from 08/03/2022), a creatinine of 1.1 (1.0), potassium of 4.3 (5.2), and glucose of 101 (79) and normal LFTs. Hemoglobin was 14.8 (15.4 from 01/17/2023) with hematocrit of 44% (45%). Total cholesterol from 12/24/2022 was 131 (123 from 08/03/2022), HDL of 60 (48), LDL of 57 (59), and triglycerides of 69 (80), with a particle number of 817 from08/03/2022 (872 from 03/23/2021). Past Medical History: Diagnosis Date Coronary artery disease Disease of thyroid gland Hyperlipidemia Past Surgical History: Procedure Laterality Date CARDIAC CATHETERIZATION 2010 STENT X1 2010 CORONARY ANGIOPLASTY Family History Problem Relation Age of Onset Stroke Mother Alzheimer's disease Mother Colon cancer Mother Dementia Mother Heart attack Father 59 [place] Social History Socioeconomic History Marital status: Tobacco Use Smoking status: Never Smokeless tobacco: Never Substance and Sexual Activity Alcohol use: Yes Comment: 1-2 times per month Drug use: No Sexual activity: Defer Allergies Allergen Reactions Morphine GI intolerance and Nausea And Vomiting Other reaction(s): Vomiting Other reaction(s): GI Upset Other reaction(s): Vomiting Other reaction(s): Vomiting Other reaction(s): GI Upset Other reaction(s): Vomiting Current Medication List Sig aspirin 81 mg EC tablet Take 1 tablet (81 mg total) by mouth daily azithromycin (ZITHROMAX) 250 mg tablet Take 1 tablet every Saturday, Saturday and Saturday continously. guaiFENesin (HUMIBID 3) 400 mg tablet Take 1 tablet (400 mg total) by mouth every 4 (four) hours hydrogen peroxide 3 % spray,non-aerosol Apply topically multivit-min/folic/vit K/lycop (ONE-A-DAY MEN'S 50 PLUS ORAL) Take 5 mg by mouth daily nitroglycerin (NITROSTAT) 0.4 mg SL tablet as needed pantoprazole (PROTONIX) 40 mg EC tablet Take 1 tablet (40 mg total) by mouth pirfenidone (Esbriet) 267 mg tablet Take 2 tablets by mouth 3 (three) times a day Takes 237mg, 9 tablet a day (2,133mg) predniSONE (DELTASONE) 10 mg tablet Take 1 tablet (10 mg total) by mouth daily 25 mg this Am amLODIPine (NORVASC) 5 mg tablet (Discontinued) Take 0.5 tablets (2.5 mg total) by mouth daily clopidogreL (PLAVIX) 75 mg tablet (Discontinued) Take 1 tablet (75 mg total) by mouth daily ezetimibe (ZETIA) 10 mg tablet (Discontinued) Take 1 tablet (10 mg total) by mouth daily metoprolol succinate XL (TOPROL-XL) 50 mg 24 hr tablet (Discontinued) Take 0.5 tablets (25 mg total) by mouth daily rosuvastatin (CRESTOR) 20 mg tablet (Discontinued) Take 1 tablet (20 mg total) by mouth nightly amLODIPine (NORVASC) 5 mg tablet Take 0.5 tablets (2.5 mg total) by mouth daily clopidogreL (PLAVIX) 75 mg tablet Take 1 tablet (75 mg total) by mouth daily ezetimibe (ZETIA) 10 mg tablet Take 1 tablet (10 mg total) by mouth daily metoprolol succinate XL (TOPROL-XL) 25 mg 24 hr tablet Take 1 tablet (25 mg total) by mouth daily rosuvastatin (CRESTOR) 20 mg tablet Take 1 tablet (20 mg total) by mouth nightly esomeprazole (NexIUM) 20 mg capsule (Discontinued) Take 1 capsule (20 mg total) by mouth every morning before breakfast metoprolol succinate XL (TOPROL-XL) 50 mg 24 hr tablet (Discontinued) Take 0.5 tablets (25 mg total) by mouth daily Review of Systems Constitutional: Positive for fatigue. Negative for unexpected weight change. Eyes: Positive for visual disturbance. Respiratory: Positive for shortness of breath. Cardiovascular: Negative for chest pain, palpitations and leg swelling. Gastrointestinal: Negative for blood in stool. Endocrine: Negative for polydipsia. Skin: Negative for rash. Neurological: Positive for dizziness. Negative for syncope and weakness. Hematological: Does not bruise/bleed easily. Psychiatric/Behavioral: The patient is not nervous/anxious. All other systems reviewed and are negative. Objective BP (!) 98/50 (BP Location: Left arm, Patient Position: Sitting) Pulse (!) 56 Ht 1.753 m Wt 69.7 kg SpO2 95% BMI 22.67 kg/m?? Physical Exam: General Appearance: Pleasant male in no distress on oxygen supplementation HEET: Normocephalic atraumatic, EOMI, no scleral icterus, no arcus Neck: No obvious mass, supple Respiratory: Clear to auscultation without rales or wheeze Cardiovascular: Regular rate and rhythm, normal S1 and normal S2, no murmurs or gallops, JVP 3-4 cmwithout any hepatojugular reflux. Pulses: Right radial pulses 2+, no hematoma Abdomen: Soft, nondistended, nontender, no hepatosplenomegaly. Extremities: Warm with no edema, significant clubbing with mild distal cyanosis. 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 ([facility]) - ECG 12 Lead (Clinic - Same Day) - XTRNL Referral to Cardiac Rehabilitation Dyspnea on exertion Stable angina pectoris Hypercholesterolemia Other orders - amLODIPine (NORVASC) 5 mg tablet; Take 0.5 tablets (2.5 mg total) by mouth daily - clopidogreL (PLAVIX) 75 mg tablet; Take 1 tablet (75 mg total) by mouth daily - ezetimibe (ZETIA) 10 mg tablet; Take 1 tablet (10 mg total) by mouth daily - rosuvastatin (CRESTOR) 20 mg tablet; Take 1 tablet (20 mg total) by mouth nightly - metoprolol succinate XL (TOPROL-XL) 25 mg 24 hr tablet; Take 1 tablet (25 mg total) by mouth daily Assessment/Plan Comments: 1. CAD with stable exertional angina. His chest discomfort has resolved with his most recent intervention although he has been less active due to perceived worsening of his dyspnea. It remains challenging to know how much of his coronary disease is contributing to his dyspnea given his intrinsic lung disease but cannot spent considerable time discussing anatomy and potential expectations. He was under the false impression that the right coronary artery was restricting flow to the lungs. We discussed the merits of percutaneous revascularization and again I was clear about the expectation that it would not completely eliminate his dyspnea, but his exertional dyspnea could potentially improve it if there is some component of an anginal equivalent. Given his normal left and right ventricular systolic function, it is highly unlikely that he will have any increased blood flow to his lung circuit. His recent revascularization appears to have relieved his anginal chest discomfort and that wasthe main goal of revascularization. We discussed that given that he is collateralized, I do not believe that he is at significant risk in the short run, and if he is content with his current status, I think medical therapy would be a reasonable approach. I encouraged him to discuss the anticipated procedure on the RCA and potential risks and expected outcomes with the [facility] wellness coach and make a decision based on that discussion. I reemphasized the absolute need to continue with aspirin andclopidogrel and will refer him to cardiac rehab in hopes of improving his exercise tolerance. I will plan on seeing him back in 4 months to reevaluate his clinical status. In the meantime, I will continue with aggressive medical therapy and continue his current medication. 2. Exertional dyspnea from pulmonary emboli and pulmonary fibrosis. His pulmonary fibrosis has beenprogressive and he should continue to follow-up with [facility] Pulmonology. I continue to see no evidence of any volume overload on exam. To what degree his dyspnea could represent an anginal equivalent remains uncertain. 3. Hyperlipidemia. His last lipid panel was excellent and I will continue his current medication with plans to recheck in 4 months. 4. Reported bradycardia. His heart rate today remains slow but unchanged despite reducing his metoprolol at his last visit and he remains asymptomatic. His last 7-day Zio showed a normal chronotropicresponse. I will continue his current dose and continue to monitor. He will continue his current medications and have submitted a referral to [facility] cardiac rehab. He will follow-up with [facility] interventional cardiology for discussion about possible PCI to the RCA. I have encouraged him to check his blood pressures using an arm cuff. He will follow-up with me in 4 months with a CMP, NMR LipoProfile, and ECG prior to that visit. I spent a total of 91 minutes reviewing medical records and preparing and executing today's clinical visit. Electronically signed by Mynor Moreno MD 04/11/2023 11:35 AM This note was generated utilizing voice recognition software. While attempts have been made to correct mistakes, common errors may occur, including substitution of words that sound phonetically similar to the intended word as well as random substitution errors. Please take this into consideration and use clinical context when necessary. 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 ([facility]) Ordered: 04/11/2023 documented as of this encounter Medical Devices Implanted Type Area Asbestos Abatement Technician Device Identifier Shelf Expiration Date Model / Serial / Lot Mini Aleman- 2 Implanted:Qty: 1 on 06/28/2021 by Lopez Duran MD Tube Left: Ear [employer] 08/17/2024 [id number] documented as of this encounter Procedures Procedure Name Priority Date/Time Associated Diagnosis Comments ECG 12-LEAD Routine 04/11/2023 9:45 AM PDT 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 ([facility]) documented in this encounter Results * ECG 12 Lead (Clinic - Same Day) (04/11/2023 9:45 AM PDT) HR 50 bpm [facility] I[facility]G RR 1,200 ms [facility] I[facility]G ND 145 ms [facility] I[facility]G QRSD 93 ms [facility] I[facility]G QT 475 ms [facility]G QTc 434 ms [facility]G QRS 67 deg [facility]G T 51 deg [facility]G Impression - BORDERLINE ECG - [facility] IECG Impression Sinus rhythm [facility] IECG Impression Abnormal R-wave progression, early transition [facility] IECG Impression Probable left ventricular hypertrophy [facility] IECG Impression Nonspecific repol abnormality, anterior leads [facility] IECG Impression When compared with ECG of 20-Mar-2023 11:06:18, [facility] IECG Impression ST-T abnormalities are more prominent [facility] IECG 04/11/2023 9:45 AM PDT Mynor Moreno MD ECG ORDERABLES [facility] IECG documented in this encounter Visit Diagnoses Diagnosis 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
== END ==
PROVIDERS: PCP Internal Medicine; Referring Provider Urology; Visit Provider Urology
DX: N39.0 Urinary tract infection, site not specified (principal)
CPT/HCPCS: 81003; 81015; 87077; 87086; 87186

== ENCOUNTER → 2023-06-12 11:23 | Outpatient (CLI) | payer MEDICARE, OTHER, SELFPAY ==
[2023-06-12 12:25] LABS: Add Manual Diff / Slide Review NO; Basophils Absolute Auto 0 /uL (0-100); Basophils Percent Auto 0.2 % (0-2); Eosinophils Absolute Auto 0 /uL (0-450); Eosinophils Percent Auto 0.1 % (2-4); Hematocrit 43.3 % (41-53); Hemoglobin 14.4 g/dL (13.5-17.5); Lymphocytes Absolute Auto 1200 /uL (1100-4500); Lymphocytes Percent Auto 8.1 % (25-40); Mean Corpuscular HGB Conc 33.3 % (30-36); Mean Corpuscular Hemoglobin 33.5 PG (26-34); Mean Corpuscular Volume 100.7 fL (80-100); Monocytes Absolute Auto 700 /uL (0-900); Neutrophils Absolute Auto 12500 /uL (1500-7000); Neutrophils Percent Auto 86.6 % (50-75); Platelet Count 250 X10^3/uL (150-400); Red Cell Distribution Width 14.3 % (11.6-14.8); White Blood Cell Count 14.4 X10^3/uL (4.5-11.0)
[2023-06-12 12:27] LABS: INR 1.2 (0.9-1.3); Prothrombin Time 13.3 SECONDS (9.4-12.5)
[2023-06-12 12:41] LABS: BUN Creatinine Ratio 17.2 (6-22); Blood Urea Nitrogen 17 mg/dL (9-20); Calcium 10.3 mg/dL (8.4-10.2); Carbon Dioxide 26 mmol/L (22-32); Chloride 101 mmol/L (98-107); Estimated Glomerular Filt Rate > 60 mL/min (>60); Glucose 107 mg/dL (80-110); HEMOLYSIS < 15 (0-50); Potassium 4.7 mmol/L (3.4-5.1); Sodium 139 mmol/L (137-145)
== END ==
LOC: LAB 11:33
PROVIDERS: PCP Internal Medicine; Referring Provider Internal Medicine Cardiovascular Disease; Visit Provider Internal Medicine Cardiovascular Disease
DX: R06.02 Shortness of breath (principal); R06.09 Other forms of dyspnea; I20.89 Other forms of angina pectoris
CPT/HCPCS: 36415; 80048; 85025; 85610

== ENCOUNTER 2023-07-08 10:51 | Emergency (ER) | payer MEDICARE, OTHER, SELFPAY ==
[2023-07-08 11:30] VITALS: BP 112/61; PULSE 52; RESP 18; TEMP 36.1; O2SAT 89; BMI 22.1
--- NOTE | 2023-07-08 13:07 | ED.EXTPRO ---
HPI - Extremity Problem <Elena Almanzar PA-C - Last Filed: 07/08/23 20:32> General Chief complaint: Extremity Problem,Nontraumatic Stated complaint: pulmonary fibrosis toes discolored Time Seen by Provider: 07/08/23 12:35 Source: patient and family Mode of arrival: Ambulatory History of Present Illness HPI Narrative: 72-year-old male with a history of pulmonary fibrosis presents with concern for wanting to rule out gangrene on his toes. Patient states on Saturday 2 days ago he was getting out of the shower and he noticed that there was some purplish blue area on the base of his toes on his left foot. He does not remember sustaining any injury and states he has been specifically warned to watch out for gangrene due to his chronic hypoxia from his pulmonary fibrosis. He is on home oxygen and when he called the nurse line today they advised he should come into the emergency department to get looked at as they were unable to get him in soon. He notes ?I actually think it has getting a lot better it looks better today compared to Saturday I think it might be a bruise?. He denies any other symptoms or concerns and otherwise has been in his usual state of health. Related Data Home Medications Medication Instructions Recorded Confirmed esomeprazole magnesium 20 mg 20 mg PO DAILY 03/27/21 09/14/22 capsule,delayed release ezetimibe 10 mg tablet 10 mg PO DAILY 03/27/21 09/14/22 guaifenesin 400 mg tablet 400 mg PO QID 03/27/21 09/14/22 pirfenidone 267 mg tablet 534 mg PO TID 03/27/21 09/14/22 rosuvastatin 20 mg tablet 20 mg PO DAILY 03/27/21 09/14/22 Previous Rx's Medication Instructions Recorded sulfamethoxazole 800 1 tab PO BID #20 tabs 12/12/22 mg-trimethoprim 160 mg tablet (Bactrim DS) sulfamethoxazole 800 1 tab PO BID #20 tabs 05/01/23 mg-trimethoprim 160 mg tablet (Bactrim DS) Allergies Allergy/AdvReac Type Severity Reaction Status Date / Time No Known Drug Allergies Allergy Verified 09/14/22 10:40 Review of Systems <Elena Almanzar PA-C - Last Filed: 07/08/23 20:32> Review of Systems Narrative: See HPI Patient History <Elena Almanzar PA-C - Last Filed: 07/08/23 20:32> Medical History Urinary retention Intermittent self-catheterization of bladder Hypotonic bladder UTI due to Klebsiella species Urinary tract infection History of urinary tract infection History of prostatitis Dysuria Acute urinary retention Migraine GERD (gastroesophageal reflux disease) Coronary heart disease Idiopathic pulmonary fibrosis Surgical History History of coronary artery stent placement Family History Mother Cancer CVA (cerebral vascular accident) Father Hyperlipidemia Social History marital status: number of children: 2 Previous occupational history: retired leisure activities: exercise Smoking Status: Never smoker alcohol intake: current Type(s) of exercise: aerobic frequency: daily Smoking Status: Never smoker alcohol intake frequency: holidays/special occasions only Substance Use Type: does not use Exam <Elena Almanzar PA-C - Last Filed: 07/08/23 20:32> Narrative Exam Narrative: GENERAL: [72] year old patient appears stated age. Well-developed patient, in mild distres, oxygen concentrator with patient, nasal cannula on from home. HEAD: Atraumatic. Normocephalic. EYES: Pupils equal round and reactive. Extraocular motions intact. No scleral icterus. No injection or drainage. ENT: Nose without bleeding, purulent drainage. Airway patent. NECK: Trachea midline. CARDIOVASCULAR: Regular rate and rhythm without murmurs, gallops, or rubs. RESPIRATORY: Slightly coarse lung sounds on auscultation. Breath sounds equal bilaterally. No wheezes, rales, or rhonchi. EXTREMITIES: There is bruising at the base of the left 2nd and 3rd toes and scattered bruising over the dorsum of the left 2nd and 3rd toes that is purplish yellow in color consistent with a bruise that is a few days old. Capillary refill is less than 2 seconds, skin color of the foot and toes is pink and Re perfuses within 2nd after blanching. There is no tenderness swelling erythema or any other discoloration of the toes or foot. Dorsalis pedis and posterior tibialis pulses are strong. No edema or joint tenderness. NEURO: AOx3. SKIN: No rash or erythema of visible areas Initial Vital Signs Initial Vital Signs: Vital Signs Temperature 97 F L 07/08/23 11:30 Pulse Rate 52 L 07/08/23 11:30 Respiratory Rate 18 07/08/23 11:30 Blood Pressure 112/61 07/08/23 11:30 Pulse Oximetry 89 L 07/08/23 11:30 Oxygen Delivery Method Nasal Cannula 07/08/23 11:30 Oxygen Flow Rate 6 07/08/23 11:30 <Ana Yi DO - Last Filed: 07/09/23 09:41> Initial Vital Signs Initial Vital Signs: Vital Signs Temperature 97 F L 07/08/23 11:30 Pulse Rate 52 L 07/08/23 11:30 Respiratory Rate 18 07/08/23 11:30 Blood Pressure 112/61 07/08/23 11:30 Pulse Oximetry 89 L 07/08/23 11:30 Oxygen Delivery Method Nasal Cannula 07/08/23 11:30 Oxygen Flow Rate 6 07/08/23 11:30 Course <Elena Almanzar PA-C - Last Filed: 07/08/23 20:32> Vital Signs Vital signs: Vital Signs - 8 hr 07/08/23 13:23 Pulse Rate 53 L Blood Pressure 105/63 Pulse Oximetry 89 L Oxygen Delivery Method Nasal Cannula <Ana Yi DO - Last Filed: 07/09/23 09:41> Vital Signs Vital signs: Vital Signs - 8 hr 07/08/23 13:23 Pulse Rate 53 L Blood Pressure 105/63 Pulse Oximetry 89 L Oxygen Delivery Method Nasal Cannula MDM - Extremity (Nontraumatic) <Elena Almanzar PA-C - Last Filed: 07/08/23 20:32> MDM Narrative Medical decision making narrative: This is a 72-year-old male with history of pulmonary fibrosis presenting today with concern for discoloration on his left 2nd and 3rd toes since Saturday. Advised to come to hospital for evaluation for possible gangrene given his chronic hypoxia. His exam today has no evidence of gangrene, it is very consistent with mild bruising that is healing, patient also shows a photograph of the original discoloration he noted on Saturday 2 days prior which is consistent with a bruise as well. Based on this photograph and patient's exam today the area is healing, patient also concurs with this. His exam shows he has excellent circulation of his foot and patient is counseled that I do not have concern for gangrene based on his exam today. He is advised to a course monitor the area for new or worsening symptoms follow up with his primary care provider. As he has no pain or tenderness of the area and no memory of an injury to it a sprain is considered however fracture seems highly un likely and x-rays are not obtained. He is counseled regarding the fact that being on blood thinners he is more prone to bruising. Return precautions provided, follow-up plan discussed, all questions answered. Discharge Plan Departure Patient Disposition: Home Clinical Impression: Bruise of toe, Pulmonary fibrosis Activity Restrictions/Additional Instructions: *You have been diagnosed with [bruising of your left 2nd and 3rd toes] *What to do: *Please continue to take your regular medications as directed. [ ] New medication prescriptions sent to your pharmacy: [ ] [ ] New medication written as a paper prescription [ X] No new medications given *Please follow up with your primary care provider in 2-3 days, call for an appointment. Let them know you were seen in the Emergency Department and that we ask that you be seen in follow up. We will electronically transmit a record of today's note if your PCP is in our system. I am glad you came in to get evaluated today. Based on your exam I do not thing that you have gangrene, the discoloration at the toes of her left foot is consistent with bruising, it is possible that you bumped your foot or did something in your sleep to bump or mildly sprain your toes without realizing it, the fact that you are on blood thinners also puts you at higher risk of easy bruising. You appear to have good circulation in your feet at present. Please do monitor the area I am glad that is looking better now than when he 1st noticed it on Saturday I expect it will continue to resolve, but you can always follow-up with your primary care provider for a recheck or if you have new or worsening symptoms do not hesitate to seek re-evaluation sooner. *If you do not have a primary care provider please contact the [facility] Resource line at [phone]. They will ask some questions about your medical history and help get you set up with a doctor in the community. *Return to Emergency Department if you should have any new, worsening or concerning symptoms, such as [fever greater than 101 F, shaking chills, worsening pain, persistent vomiting or other bothersome symptoms] Prescriptions: No Action rosuvastatin 20 mg tablet 20 mg PO DAILY ezetimibe 10 mg tablet 10 mg PO DAILY pirfenidone 267 mg tablet 534 mg PO TID Rx Instructions: administer with food at the same time(s) each day; resume usual dose after stopping ciprofloxacin esomeprazole magnesium 20 mg capsule,delayed release(DR/EC) 20 mg PO DAILY guaifenesin 400 mg tablet 400 mg PO QID sulfamethoxazole-trimethoprim [Bactrim DS] 800-160 mg tablet 1 tab PO BID Qty: 20 0RF sulfamethoxazole-trimethoprim [Bactrim DS] 800-160 mg tablet 1 tab PO BID Qty: 20 0RF Referrals: Leigh Mercedes MD [Primary Care Provider] - Stand Alone Forms: Patient Portal/API ED Sign-out <Ana Yi DO - Last Filed: 07/09/23 09:41> Cosign ED Attending Swapnaature Attestation: I was immediately available in the department for consultation.
[2023-07-08 13:23] VITALS: BP 105/63; PULSE 53; O2SAT 89
== END 2023-07-08 13:32 | disposition home or self-care (01) ==
PROVIDERS: Emergency Provider Student in an Organized Health Care Education/Training Program; PCP Internal Medicine
DX: S90.122A Contusion of left lesser toe(s) without damage to nail, initial encounter (principal); J84.10 Pulmonary fibrosis, unspecified; X58.XXXA Exposure to other specified factors, initial encounter
CPT/HCPCS: 99282; 99284

== ENCOUNTER → 2023-08-02 10:10 | Outpatient (CLI) | payer MEDICARE, OTHER, SELFPAY ==
[2023-08-02 12:02] LABS: Alanine Aminotransferase 43 IU/L (<50); Albumin 4.6 g/dL (3.5-5.0); Albumin Globulin Ratio 1.2 (1.0-2.8); Alkaline Phosphatase 73 U/L (38-126); Aspartate Aminotransferase 46 IU/L (17-59); Bilirubin Total 0.8 mg/dL (0.2-1.3); Blood Urea Nitrogen 16 mg/dL (9-20); Calcium 9.8 mg/dL (8.4-10.2); Carbon Dioxide 26 mmol/L (22-32); Chloride 102 mmol/L (98-107); Estimated Glomerular Filt Rate > 60 mL/min (>60); Globulin 3.8 g/dL (1.7-4.1); Glucose 84 mg/dL (80-110); HEMOLYSIS 39 (0-50); Potassium 4.5 mmol/L (3.4-5.1); Sodium 139 mmol/L (137-145); Total Protein 8.4 g/dL (6.3-8.2)
[2023-08-05 05:47] LABS: Cholesterol, Total 150 mg/dL (100-199); HDL-Cholesterol 67 mg/dL (>39); HDL-Particle (Total) 31.1 umol/L (>=30.5); Historical Reading Comment: (.); LDL Particle 655 nmol/L (<1000); LDL Size 21.1 nm (>20.5); LDL-Cholsterol 65 mg/dL (0-99); LP-IR Score <25 (<=45); Small LDL- Particle <90 nmol/L (<=527); Triglycerides 100 mg/dL (0-149)
== END ==
LOC: LAB 10:15
PROVIDERS: PCP Internal Medicine; Referring Provider Internal Medicine Critical Care Medicine; Visit Provider Specialist
DX: E78.00 Pure hypercholesterolemia, unspecified (principal); Z79.899 Other long term (current) drug therapy; J84.9 Interstitial pulmonary disease, unspecified
CPT/HCPCS: 36415; 80053; 80061; 83704

== ENCOUNTER → 2023-08-21 08:00 | Outpatient (CLI) | payer MEDICARE, OTHER, SELFPAY ==
--- NOTE | 2023-08-21 | DI.ECHO.S_ITS ---
[facility] +---------+ : : [address] [place] : : : : [id number] : : : : Phone: [phone]+ Echocardiogram Report + + :Name: LAUREN VENTURA Study Date: 08/21/2023 Height: 69 in : :[facility] ReadingLocation: Weight: 150 lb: : Gender: Male BSA: 1.8 m2 : :: 1950 Age: 72 yrs BP: 88/54 mmHg: :Reason For Study: Dyspnea : : Performed By: Josselin Colunga : :Referring: ISHAAN ESCOTO : + + Interpretation Summary Left ventricular systolic function remains well-preserved with an estimated ejection fraction of 55 to 60% although appears slightly less dynamic compared to the previous study. There continues to be subtle hypokinesis in the inferoposterior segment as well as septal flattening, consistent with a right ventricular pressure overload condition, but both appear similar to the previous exam. Left ventricular volumes remain normal with probable normal filling pressures, likely unchanged in the previous exam. The right ventricle is mildly enlarged and mild to moderately hypokinetic and appears slightly larger and slightly less dynamic compared to the previous exam. Right ventricular systolic pressure is estimated at 61 mmHg with a CVP of 8 mmHg, and is likely slightly higher compared to the previous study. Both atria remain normal in size and unchanged. There is mild mitral and mild to moderate tricuspid regurgitation that appear unchanged. There is no other significant valvular abnormality. The ascending aorta remains mildly enlarged at 3.7 cm but unchanged in the previous exam. The patient remained in sinus bradycardia at 47 to 55 bpm, similar to the previous study. Procedure: A two-dimensional transthoracic echocardiogram with color flow and Doppler was performed. The study quality was technically good. Comparison is made with the echocardiogram of 01-25-23. The patient was in sinus rhythm with heart rates between 47-55 bpm during the exam. Left Ventricle: The left ventricle is normal in size and wall thickness. The estimated left ventricular end diastolic volume is 66 mL compared to the previous 75 ml. The ejection fraction is estimated to be 55-60%. There is subtle hypokinesis in the inferoposterior segment that appears unchanged. There is mild right ventricular septal flattening at end systole. The interventricular septum is flattened, consistent with a right ventricular pressure overload condition. This is slightly less dynamic compared to the previous study. Diastolic parameters suggest a relaxation abnormality of the left ventricle, consistent with probable normal filling pressures. This is unchanged compared to the previous study. Right Ventricle: The right ventricle is mildly dilated. Right ventricular systolic function is mild to moderately reduced. This is slightly larger and slightly less dynamic compared to the previous study. Atria: Both atria are normal in size. This is unchanged compared to the previous study. The interatrial septum grossly appears intact with no obvious evidence for an atrial septal defect. Mitral Valve: The mitral valve leaflets appear mildly thickened, but open well. There is mild mitral regurgitation. This is unchanged compared to the previous study. Aortic Valve: The aortic valve is trileaflet. There is mild aortic valve sclerosis. The aortic valve is slightly calcified. The aortic valve opens well. No aortic regurgitation is present. Tricuspid Valve: The tricuspid valve leaflets are thin and pliable. There is mild to moderate tricuspid regurgitation. This is unchanged compared to the previous study. The right ventricular systolic pressure is estimated to be at least 61 mmHg based on an estimated right atrial pressure of 8 mm Hg. This is possibly slightly higher compared to the previous study. Pulmonic Valve: The pulmonic valve is not well seen, but is grossly normal. There is a trace or physiologic amount of pulmonic regurgitation. Great Vessels: The aortic root is normal size. The ascending aorta is mildly enlarged. This is unchanged compared to the previous study. The aortic arch is normal in size. The IVC is of normal diameter and collapses less than 50% with a sniff. This suggests a right atrial pressure of 8 mm Hg. Pericardium/ Pleura There is no pericardial effusion. There is no pleural effusion. MMode/2D Measurements & Calculations LVIDd: 4.2 cm LVOT diam: 2.0 cm LVIDs: 2.9 cm Ao root diam: 3.3 cm FS: 29.9 % asc Aorta Diam: 3.7 cm EPSS: 1.0 cm Ao Arch Diam (Prox Trans): 2.9 cm IVSd: 0.71 cm LVPWd: 0.78 cm LV wick. diameter/BSA (cm/m^2): 2.3 LV sys. diameter/BSA (cm/m^2): 1.6 LA A2 area: 18.9 cm2 RA long axis: 4.9 cm LA A4 area: 18.4 cm2 RA area: 16.7 cm2 LA length (vol): 5.0 cm RA vol: 48.1 ml LA vol: 58.2 ml RA : 26.3 ml/m2 LA vol index: 31.9 ml/m2 IVC diam: 2.0 cm RVD1 (basal): 2.9 cm TAPSE: 1.5 cm Doppler Measurements & Calculations Ao V2 max: 108.7 cm/sec LVOT Max Tony: 65.6 cm/sec Ao V2 mean: 74.6 cm/sec LV V1 max P.7 mmHg Ao max P.7 mmHg LV V1 VTI: 17.3 cm Ao mean P.5 mmHg RENAN(I,D): 2.1 cm2 Ao V2 VTI: 24.7 cm RENAN(V,D): 1.8 cm2 sev ratio: 0.70 RENAN indexed to BSA (cm^2/m^2): 1.2 MV E max tony: 45.8 cm/sec TR max tony: 363.6 cm/sec MV A max tony: 58.4 cm/sec TR max P.0 mmHg MV E/A: 0.79 PA V2 max: 48.4 cm/sec Med Peak E' Tony: 6.4 cm/sec PA V2 mean: 33.4 cm/sec E/E' med: 7.1 PA mean P.52 mmHg Lat Peak E' Tony: 9.2 cm/sec PA pr(Accel): 43.0 mmHg E/E' lat: 5.0 E/e' average: 6.1 MV dec time: 0.41 sec SV(LVOT): 52.3 ml Reading Physician:12:38 PM
== END ==
LOC: ECHO 08:00
PROVIDERS: PCP Internal Medicine; Referring Provider Specialist; Visit Provider Specialist
DX: I08.3 Combined rheumatic disorders of mitral, aortic and tricuspid valves (principal); R06.09 Other forms of dyspnea; I77.89 Other specified disorders of arteries and arterioles
CPT/HCPCS: 93306

== ENCOUNTER 2023-09-27 06:02 | Emergency (ER) | payer MEDICARE, OTHER, SELFPAY ==
[2023-09-27] VITALS (17 sets, daily range): BP systolic 101–117; BP diastolic 64–72; PULSE 56–69; RESP 18–25; TEMP 35.9; O2SAT 92–100; BMI 22.1
--- NOTE | 2023-09-27 06:25 | DI.CT.S_ITS ---
PROCEDURE: CT ANGIO CHEST PE PROTOCOL INDICATIONS: dyspnea, syncope TECHNIQUE: After the administration of intravenous contrast, 2 mm thick sections acquired from the pulmonary apices to the posterior costophrenic angles. 3-dimensional maximum intensity projection (MIP) coronal and sagittal reformats were then acquired through the thorax. For radiation dose reduction, the following was used: automated exposure control, adjustment of mA and/or kV according to patient size. COMPARISON: None. FINDINGS: Image quality: Diagnostic. Pulmonary arteries: Pulmonary arteries are normal in size, and demonstrate no intraluminal filling defects to suggest central pulmonary embolism. Lower Neck: No enlarged lymph nodes. Thyroid: No thyroid nodules which require sonographic follow up, per consensus guidelines. Axillae: No enlarged lymph nodes. Chest Wall: Unremarkable. Bones: Unremarkable. Lungs and Pleura: No pneumothorax or pleural effusions. Bilateral subpleural interstitial thickening and pulmonary fibrosis, left greater than right, most pronounced in the left lower lobe. There is bronchiectasis in left lower lobe and lingula. Heart: Heart size is normal. No pericardial effusion. Thoracic Vessels: No aortic aneurysm. Mediastinum and Carmen: There are enlarged lymph nodes mediastinal lymph nodes. For example - a 1.1 x 1.7 cm precarinal lymph node. -a 1.5 x 2.7 cm subcarinal lymph node Esophagus: No wall thickening. Small to moderate hiatal hernia. There is thickening at the gastroesophageal junction. Upper Abdomen: Visualized upper abdomen solid organs and bowel loops appear normal. IMPRESSION: 1. No pulmonary embolus. 2. Bilateral subpleural fat pleural thickening and pulmonary fibrosis, most pronounced in the left lower lobe. The CT findings suggest chronic interstitial lung disease. 3. Mediastinal lymphadenopathy. This finding is nonspecific and may be secondary to infectious, inflammatory or neoplastic etiology. Recommend clinical correlation and follow up. 4. Small hiatal hernia. There is thickening in the distal esophagus at the EG junction. Consider EGD or esophagram for follow-up evaluation. The result was discussed with Dr. Marks in ER. No significant discrepancy with the electrical engineering designer radiology preliminary report. Dictated by: Khai Hodge M.D. on 09/27/2023 at 8:03 Approved by: Khai Hodge M.D. on 09/27/2023 at 8:48
--- NOTE | 2023-09-27 06:32 | ED.GENADULT ---
HPI - General Adult <Marlene Nj MD - Last Filed: 09/30/23 11:12> General Chief complaint: Syncope Stated complaint: syncope Time Seen by Provider: 09/27/23 06:06 Source: patient Mode of arrival: EMS History of Present Illness HPI narrative: 72-year-old gentleman with a complex pulmonary history and most likely idiopathic pulmonary fibrosis followed by pulmonary physician at the [facility] currently on 15 L of oxygen at home as well as 10 mg b.i.d.. He completed a 10 day course of cefuroxime 250 mg b.i.d. approximately 5 days ago after developing increasing sputum. He was off antibiotics for approximately 5 days and felt like he was still not improved and yesterday was restarted on cefuroxime 500 mg b.i.d. for an additional 7 days. This morning he went to get out of bed after sitting on the edge of the bed letting his body acclimate he stood up and had an acute syncopal episode falling forward. Did not suffer any traumatic injury. He does have a known cardiac history with recent cardiac catheterization had to completely blocked arteries 1 of which was stented in the other which was felt to be too high risk. He states that yesterday was ?not a good day?. He took 2 nitroglycerin and was continuing to feel increasingly short of breath. Not complaining of chest pain. Not noticing fevers, chills, lower extremity edema. No nausea vomiting diarrhea. He states that he had an episode with near-syncope approximately 3 weeks ago. He notes over the last 24 hours he has had significant increased exertional dyspnea. He does not notice significant change to sputum over his baseline. In the past he has had pulmonary function testing that did not show any benefit to inhalers. He is not currently using any inhalers and is not currently complaining of wheezing. He is able to speak in full sentences and cooperate completely this exam. Related Data Home Medications Medication Instructions Recorded Confirmed esomeprazole magnesium 20 mg 20 mg PO DAILY 03/27/21 09/14/22 capsule,delayed release ezetimibe 10 mg tablet 10 mg PO DAILY 03/27/21 09/14/22 guaifenesin 400 mg tablet 400 mg PO QID 03/27/21 09/14/22 pirfenidone 267 mg tablet 534 mg PO TID 03/27/21 09/14/22 rosuvastatin 20 mg tablet 20 mg PO DAILY 03/27/21 09/14/22 cefuroxime axetil 500 mg tablet 500 mg PO BID 09/27/23 09/27/23 Allergies Allergy/AdvReac Type Severity Reaction Status Date / Time No Known Drug Allergies Allergy Verified 09/14/22 10:40 Review of Systems <Marlene Nj MD - Last Filed: 09/30/23 11:12> Review of Systems Narrative: Pertinent positive and negative findings as per HPI Patient History <Marlene Nj MD - Last Filed: 09/30/23 11:12> Medical History (Updated 09/27/23 @ 10:56 by Rain Marks DO) Urinary retention Intermittent self-catheterization of bladder Hypotonic bladder UTI due to Klebsiella species Urinary tract infection History of urinary tract infection History of prostatitis Dysuria Acute urinary retention Migraine GERD (gastroesophageal reflux disease) Coronary heart disease Idiopathic pulmonary fibrosis Surgical History History of coronary artery stent placement Family History Mother Cancer CVA (cerebral vascular accident) Father Hyperlipidemia Social History marital status: number of children: 2 Previous occupational history: retired leisure activities: exercise Smoking Status: Never smoker alcohol intake: current Type(s) of exercise: aerobic frequency: daily Smoking Status: Never smoker alcohol intake frequency: holidays/special occasions only Substance Use Type: does not use Exam <Marlene Nj MD - Last Filed: 09/30/23 11:12> Initial Vital Signs Initial Vital Signs: Vital Signs Temperature 96.7 F L 09/27/23 06:11 Pulse Rate 64 09/27/23 06:11 Respiratory Rate 18 09/27/23 06:11 Blood Pressure 108/65 09/27/23 06:11 Pulse Oximetry 96 09/27/23 06:11 Oxygen Delivery Method Non -Rebreather 09/27/23 06:11 Oxygen Flow Rate 15 09/27/23 06:11 General: Healthy appearing, in no acute distress. Able to give a complete and coherent history. Well-nourished well-developed HEENT: Moist mucous membranes, normal sclera with reactive pupils, Neck: No JVD, supple Respiratory: Despite the fact that he is on 15 L nasal cannula per face mask he is able to speak in complete sentences. Lungs with minor scattered wheeze and minor rhonchi no significant abnormalities otherwise Cardiac: Regular rate and rhythm no murmurs no bruits Abdomen: Soft, nontender, good bowel tones, no flank pain Skin: Warm and dry, no rashes Neurologic: Grossly neurologically intact with no obvious asymmetries or abnormalities Extremities: No trauma, well perfused Psych: Cooperative, appropriate insight and affect <Rain Marks DO - Last Filed: 09/27/23 18:53> Initial Vital Signs Initial Vital Signs: Vital Signs Temperature 96.7 F L 09/27/23 06:11 Pulse Rate 64 09/27/23 06:11 Respiratory Rate 18 09/27/23 06:11 Blood Pressure 108/65 09/27/23 06:11 Pulse Oximetry 96 09/27/23 06:11 Oxygen Delivery Method Non -Rebreather 09/27/23 06:11 Oxygen Flow Rate 15 09/27/23 06:11 Course <Marlene Nj MD - Last Filed: 09/30/23 11:12> Orders Ordered: Discontinued Medications Furosemide (Furosemide 40 Mg/4 Ml Vial) 20 mg IV NOW ONE Stop: 09/27/23 08:12 Last Admin: 09/27/23 08:44 Dose: 20 mg Documented By: BRANDEN Methylprednisolone (Methylprednisolone 125 Mg/2 Ml Vial) 125 mg IV NOW ONE Stop: 09/27/23 06:26 Last Admin: 09/27/23 06:38 Dose: 125 mg Documented By: AB Vital Signs Vital signs: Vital Signs - 8 hr 09/27/23 11:00 09/27/23 11:00 09/27/23 11:30 Pulse Rate 64 61 Respiratory Rate 25 H 20 Blood Pressure 106/72 Pulse Oximetry 94 92 09/27/23 11:30 Pulse Rate Respiratory Rate Blood Pressure 107/70 Pulse Oximetry <Rain Marks DO - Last Filed: 09/27/23 18:53> Orders Ordered: Discontinued Medications Furosemide (Furosemide 40 Mg/4 Ml Vial) 20 mg IV NOW ONE Stop: 09/27/23 08:12 Last Admin: 04/19/24 08:44 Dose: 20 mg Documented By: BRANDEN Methylprednisolone (Methylprednisolone 125 Mg/2 Ml Vial) 125 mg IV NOW ONE Stop: 09/27/23 06:26 Last Admin: 09/27/23 06:38 Dose: 125 mg Documented By: AB Vital Signs Vital signs: Vital Signs - 8 hr 09/27/23 11:00 09/27/23 11:00 09/27/23 11:30 Pulse Rate 64 61 Respiratory Rate 25 H 20 Blood Pressure 106/72 Pulse Oximetry 94 92 09/27/23 11:30 Pulse Rate Respiratory Rate Blood Pressure 107/70 Pulse Oximetry Medical Decision Making <Marlene Nj MD - Last Filed: 09/30/23 11:12> Lab Data 09/27/23 06:10 09/27/23 06:10 Labs: Lab Results 09/27/23 09/27/23 09/27/23 Range/Units 06:10 06:37 08:06 WBC 10.6 (4.5-11.0) X10^3/uL RBC 4.23 L (4.5-5.9) X10^6/uL Hgb 14.5 (13.5-17.5) g/dL Hct 43.1 (41-53) % MCV 102.1 H (80-100) fL MCH 34.4 H (26-34) PG MCHC 33.7 (30-36) % RDW 14.9 H (11.6-14.8) % Plt Count 211 (150-400) X10^3/uL Neut % (Auto) 83.8 H (50-75) % Lymph % (Auto) 8.9 L (25-40) % Granite % (Auto) 6.6 (3-14) % Eos % (Auto) 0.5 L (2-4) % Baso % (Auto) 0.2 (0-2) % Neut # (Auto) 8900 H (0979-8133) /uL Lymph # (Auto) 1000 L (4413-9208) /uL Granite # (Auto) 700 (0-900) /uL Eos # (Auto) 0 (0-450) /uL Baso # (Auto) 0 (0-100) /uL Sodium 137 (137-145) mmol/L Potassium 4.2 (3.4-5.1) mmol/L Chloride 105 (98-107) mmol/L Carbon Dioxide 31 (22-32) mmol/L BUN 19 (9-20) mg/dL Creatinine 0.93 (0.66-1.25) mg/dL Estimated GFR > 60 (>60) mL/min BUN/Creatinine Ratio 20.4 (6-22) Glucose 98 (80-110) mg/dL Lactate 2.2 H (0.7-2.1) mmol/L Calcium 9.3 (8.4-10.2) mg/dL Magnesium 2.3 (1.6-2.3) mg/dL Total Bilirubin 0.7 (0.2-1.3) mg/dL AST 52 (17-59) IU/L ALT 90 H (<50) IU/L Alkaline Phosphatase 66 (38-126) U/L Troponin I 0.074 H 0.074 H (0.01-0.034) ng/mL NT-Pro-B Natriuret Pep 2650 H (<125) pg/mL Total Protein 6.9 (6.3-8.2) g/dL Albumin 3.9 (3.5-5.0) g/dL Globulin 3.0 (1.7-4.1) g/dL Albumin/Globulin Ratio 1.3 (1.0-2.8) Procalcitonin 0.06 (<0.5) ng/mL Urine Color Urine Appearance Urine pH (4.5-8.0) Ur Specific Goodrich (1.000-1.035) Urine Protein (Negative) Urine Glucose (UA) (Negative) g/dL Urine Ketones (NEGATIVE) Urine Occult Blood (Negative) Urine Nitrate (Negative) Urine Bilirubin (NEGATIVE) Urine Urobilinogen (0.2) E.U./dL Ur Leukocyte Esterase (NEGATIVE) Urine RBC (0-5/HPF) Urine WBC (0-5/HPF) Ur Squamous Epith Cells (0-5/HPF) Urine Bacteria (None) Ur Culture Indicated? Vol Urine Centrifuged Chlamy pneumoniae PCR Not detected (Not Detect) Adenovirus (PCR) Not detected (Not Detect) B.parapertussis DNA PCR Not detected (Not Detecte) Coronavirus OC43 (PCR) Detected H (Not Detect) Coronavirus HKU1 (PCR) Not detected (Not Detect) Coronavirus 229E (PCR) Not detected (Not Detect) SARS-CoV-2 (PCR) Not detected (Not Detecte) Coronavirus NL63 (PCR) Not detected (Not Detect) Human Metapneumovir PCR Not detected (Not Detect) Influenza Type A (PCR) Not detected (Not Detect) Influenza Type B (PCR) Not detected (Not Detect) M. pneumoniae (PCR) Not detected (Not Detect) Parainfluenza 1 (PCR) Not detected (Not Detect) Parainfluenza 2 (PCR) Not detected (Not Detect) Parainfluenza 3 (PCR) Not detected (Not Detect) Parainfluenza 4 (PCR) Not detected (Not Detect) RSV (PCR) Not detected (Not Detect) Entero/Rhino (PCR) Not detected (Not Detect) 09/27/23 09/27/23 Range/Units 08:30 08:37 WBC (4.5-11.0) X10^3/uL RBC (4.5-5.9) X10^6/uL Hgb (13.5-17.5) g/dL Hct (41-53) % MCV (80-100) fL MCH (26-34) PG MCHC (30-36) % RDW (11.6-14.8) % Plt Count (150-400) X10^3/uL Neut % (Auto) (50-75) % Lymph % (Auto) (25-40) % Granite % (Auto) (3-14) % Eos % (Auto) (2-4) % Baso % (Auto) (0-2) % Neut # (Auto) (8377-3563) /uL Lymph # (Auto) (2735-7825) /uL Granite # (Auto) (0-900) /uL Eos # (Auto) (0-450) /uL Baso # (Auto) (0-100) /uL Sodium (137-145) mmol/L Potassium (3.4-5.1) mmol/L Chloride (98-107) mmol/L Carbon Dioxide (22-32) mmol/L BUN (9-20) mg/dL Creatinine (0.66-1.25) mg/dL Estimated GFR (>60) mL/min BUN/Creatinine Ratio (6-22) Glucose (80-110) mg/dL Lactate 1.5 (0.7-2.1) mmol/L Calcium (8.4-10.2) mg/dL Magnesium (1.6-2.3) mg/dL Total Bilirubin (0.2-1.3) mg/dL AST (17-59) IU/L ALT (<50) IU/L Alkaline Phosphatase (38-126) U/L Troponin I (0.01-0.034) ng/mL NT-Pro-B Natriuret Pep (<125) pg/mL Total Protein (6.3-8.2) g/dL Albumin (3.5-5.0) g/dL Globulin (1.7-4.1) g/dL Albumin/Globulin Ratio (1.0-2.8) Procalcitonin (<0.5) ng/mL Urine Color Yellow Urine Appearance Clear Urine pH 6.5 (4.5-8.0) Ur Specific Goodrich 1.010 (1.000-1.035) Urine Protein Negative (Negative) Urine Glucose (UA) Negative (Negative) g/dL Urine Ketones Negative (NEGATIVE) Urine Occult Blood Negative (Negative) Urine Nitrate Negative (Negative) Urine Bilirubin Negative (NEGATIVE) Urine Urobilinogen 0.2 (0.2) E.U./dL Ur Leukocyte Esterase 1+ H (NEGATIVE) Urine RBC None seen (0-5/HPF) Urine WBC 10-30/hpf H (0-5/HPF) Ur Squamous Epith Cells 1-5 /hpf (0-5/HPF) Urine Bacteria None seen (None) Ur Culture Indicated? Specimen cultured Vol Urine Centrifuged 10ml (spun) Chlamy pneumoniae PCR (Not Detect) Adenovirus (PCR) (Not Detect) B.parapertussis DNA PCR (Not Detecte) Coronavirus OC43 (PCR) (Not Detect) Coronavirus HKU1 (PCR) (Not Detect) Coronavirus 229E (PCR) (Not Detect) SARS-CoV-2 (PCR) (Not Detecte) Coronavirus NL63 (PCR) (Not Detect) Human Metapneumovir PCR (Not Detect) Influenza Type A (PCR) (Not Detect) Influenza Type B (PCR) (Not Detect) M. pneumoniae (PCR) (Not Detect) Parainfluenza 1 (PCR) (Not Detect) Parainfluenza 2 (PCR) (Not Detect) Parainfluenza 3 (PCR) (Not Detect) Parainfluenza 4 (PCR) (Not Detect) RSV (PCR) (Not Detect) Entero/Rhino (PCR) (Not Detect) Point of Care Testing Glucose POC 109 Point of care testing: Point of Care Testing Glucose POC 109 MDM Narrative Medical decision making narrative: CC: Syncope with worsening exertional dyspnea Complicating co-morbidities: Severe idiopathic pulmonary fibrosis, known coronary artery disease, currently on prednisone 10 b.i.d., cefuroxime 500 mg b.i.d. and 15 L of oxygen at home Data collected from: patient, Social determinants of health that may influence the patients condition: They live on [facility] Medical records reviewed: brings in all of his medications which are reviewed. Urgent care notes reviewed, patient excellent understanding of his baseline disease and is quite helpful with additional history without access to the [facility] records Differential considered: Worsening pulmonary fibrosis, pulmonary hypertension, acute coronary syndrome, pulmonary embolism, pneumonia, viral syndrome Exam documented above, pertinent findings include: Despite the severity of his pulmonary fibrosis on 15 L he was initially at 88% but as we continued to discuss his concerns he gradually increased up to 98% at rest with the [address] Pulmonary exam is fairly benign. Minor scattered wheeze minor rhonchi no obvious consolidated findings, pneumothorax, I do not suspect pleural effusion. Cardiac exam is unremarkable no significant lower extremity edema Lab Test results independently reviewed as above. Pertinent findings: CBC does not show significant leukocytosis, no significant anemia, platelets appropriate, he does have a light left shift Independently reviewed EKG: Sinus rhythm at a rate of 60, significant ST depression. Appears to be a right heart strain pattern and whether this is because of his pulmonary fibrosis possibility of pulmonary embolism still needs to be evaluated Imaging studies independently reviewed: Consultations: Treatments: Re-evaluations: Discussion: <Rain Marks DO - Last Filed: 09/27/23 18:53> Lab Data Labs: Lab Results 09/27/23 09/27/23 09/27/23 Range/Units 06:10 06:37 08:06 WBC 10.6 (4.5-11.0) X10^3/uL RBC 4.23 L (4.5-5.9) X10^6/uL Hgb 14.5 (13.5-17.5) g/dL Hct 43.1 (41-53) % MCV 102.1 H (80-100) fL MCH 34.4 H (26-34) PG MCHC 33.7 (30-36) % RDW 14.9 H (11.6-14.8) % Plt Count 211 (150-400) X10^3/uL Neut % (Auto) 83.8 H (50-75) % Lymph % (Auto) 8.9 L (25-40) % Granite % (Auto) 6.6 (3-14) % Eos % (Auto) 0.5 L (2-4) % Baso % (Auto) 0.2 (0-2) % Neut # (Auto) 8900 H (4747-7511) /uL Lymph # (Auto) 1000 L (4109-1388) /uL Granite # (Auto) 700 (0-900) /uL Eos # (Auto) 0 (0-450) /uL Baso # (Auto) 0 (0-100) /uL Sodium 137 (137-145) mmol/L Potassium 4.2 (3.4-5.1) mmol/L Chloride 105 (98-107) mmol/L Carbon Dioxide 31 (22-32) mmol/L BUN 19 (9-20) mg/dL Creatinine 0.93 (0.66-1.25) mg/dL Estimated GFR > 60 (>60) mL/min BUN/Creatinine Ratio 20.4 (6-22) Glucose 98 (80-110) mg/dL Lactate 2.2 H (0.7-2.1) mmol/L Calcium 9.3 (8.4-10.2) mg/dL Magnesium 2.3 (1.6-2.3) mg/dL Total Bilirubin 0.7 (0.2-1.3) mg/dL AST 52 (17-59) IU/L ALT 90 H (<50) IU/L Alkaline Phosphatase 66 (38-126) U/L Troponin I 0.074 H 0.074 H (0.01-0.034) ng/mL NT-Pro-B Natriuret Pep 2650 H (<125) pg/mL Total Protein 6.9 (6.3-8.2) g/dL Albumin 3.9 (3.5-5.0) g/dL Globulin 3.0 (1.7-4.1) g/dL Albumin/Globulin Ratio 1.3 (1.0-2.8) Procalcitonin 0.06 (<0.5) ng/mL Urine Color Urine Appearance Urine pH (4.5-8.0) Ur Specific Goodrich (1.000-1.035) Urine Protein (Negative) Urine Glucose (UA) (Negative) g/dL Urine Ketones (NEGATIVE) Urine Occult Blood (Negative) Urine Nitrate (Negative) Urine Bilirubin (NEGATIVE) Urine Urobilinogen (0.2) E.U./dL Ur Leukocyte Esterase (NEGATIVE) Urine RBC (0-5/HPF) Urine WBC (0-5/HPF) Ur Squamous Epith Cells (0-5/HPF) Urine Bacteria (None) Ur Culture Indicated? Vol Urine Centrifuged Chlamy pneumoniae PCR Not detected (Not Detect) Adenovirus (PCR) Not detected (Not Detect) B.parapertussis DNA PCR Not detected (Not Detecte) Coronavirus OC43 (PCR) Detected H (Not Detect) Coronavirus HKU1 (PCR) Not detected (Not Detect) Coronavirus 229E (PCR) Not detected (Not Detect) SARS-CoV-2 (PCR) Not detected (Not Detecte) Coronavirus NL63 (PCR) Not detected (Not Detect) Human Metapneumovir PCR Not detected (Not Detect) Influenza Type A (PCR) Not detected (Not Detect) Influenza Type B (PCR) Not detected (Not Detect) M. pneumoniae (PCR) Not detected (Not Detect) Parainfluenza 1 (PCR) Not detected (Not Detect) Parainfluenza 2 (PCR) Not detected (Not Detect) Parainfluenza 3 (PCR) Not detected (Not Detect) Parainfluenza 4 (PCR) Not detected (Not Detect) RSV (PCR) Not detected (Not Detect) Entero/Rhino (PCR) Not detected (Not Detect) 09/27/23 09/27/23 Range/Units 08:30 08:37 WBC (4.5-11.0) X10^3/uL RBC (4.5-5.9) X10^6/uL Hgb (13.5-17.5) g/dL Hct (41-53) % MCV (80-100) fL MCH (26-34) PG MCHC (30-36) % RDW (11.6-14.8) % Plt Count (150-400) X10^3/uL Neut % (Auto) (50-75) % Lymph % (Auto) (25-40) % Granite % (Auto) (3-14) % Eos % (Auto) (2-4) % Baso % (Auto) (0-2) % Neut # (Auto) (4282-6316) /uL Lymph # (Auto) (1705-6910) /uL Granite # (Auto) (0-900) /uL Eos # (Auto) (0-450) /uL Baso # (Auto) (0-100) /uL Sodium (137-145) mmol/L Potassium (3.4-5.1) mmol/L Chloride (98-107) mmol/L Carbon Dioxide (22-32) mmol/L BUN (9-20) mg/dL Creatinine (0.66-1.25) mg/dL Estimated GFR (>60) mL/min BUN/Creatinine Ratio (6-22) Glucose (80-110) mg/dL Lactate 1.5 (0.7-2.1) mmol/L Calcium (8.4-10.2) mg/dL Magnesium (1.6-2.3) mg/dL Total Bilirubin (0.2-1.3) mg/dL AST (17-59) IU/L ALT (<50) IU/L Alkaline Phosphatase (38-126) U/L Troponin I (0.01-0.034) ng/mL NT-Pro-B Natriuret Pep (<125) pg/mL Total Protein (6.3-8.2) g/dL Albumin (3.5-5.0) g/dL Globulin (1.7-4.1) g/dL Albumin/Globulin Ratio (1.0-2.8) Procalcitonin (<0.5) ng/mL Urine Color Yellow Urine Appearance Clear Urine pH 6.5 (4.5-8.0) Ur Specific Goodrich 1.010 (1.000-1.035) Urine Protein Negative (Negative) Urine Glucose (UA) Negative (Negative) g/dL Urine Ketones Negative (NEGATIVE) Urine Occult Blood Negative (Negative) Urine Nitrate Negative (Negative) Urine Bilirubin Negative (NEGATIVE) Urine Urobilinogen 0.2 (0.2) E.U./dL Ur Leukocyte Esterase 1+ H (NEGATIVE) Urine RBC None seen (0-5/HPF) Urine WBC 10-30/hpf H (0-5/HPF) Ur Squamous Epith Cells 1-5 /hpf (0-5/HPF) Urine Bacteria None seen (None) Ur Culture Indicated? Specimen cultured Vol Urine Centrifuged 10ml (spun) Chlamy pneumoniae PCR (Not Detect) Adenovirus (PCR) (Not Detect) B.parapertussis DNA PCR (Not Detecte) Coronavirus OC43 (PCR) (Not Detect) Coronavirus HKU1 (PCR) (Not Detect) Coronavirus 229E (PCR) (Not Detect) SARS-CoV-2 (PCR) (Not Detecte) Coronavirus NL63 (PCR) (Not Detect) Human Metapneumovir PCR (Not Detect) Influenza Type A (PCR) (Not Detect) Influenza Type B (PCR) (Not Detect) M. pneumoniae (PCR) (Not Detect) Parainfluenza 1 (PCR) (Not Detect) Parainfluenza 2 (PCR) (Not Detect) Parainfluenza 3 (PCR) (Not Detect) Parainfluenza 4 (PCR) (Not Detect) RSV (PCR) (Not Detect) Entero/Rhino (PCR) (Not Detect) Point of Care Testing Glucose POC 109 Point of care testing: Point of Care Testing Glucose POC 109 MDM Narrative Medical decision making narrative: CC: Syncope with worsening exertional dyspnea Complicating co-morbidities: Severe idiopathic pulmonary fibrosis, known coronary artery disease, currently on prednisone 10 b.i.d., cefuroxime 500 mg b.i.d. and 15 L of oxygen at home Data collected from: patient, Social determinants of health that may influence the patients condition: They live on [facility] Medical records reviewed: brings in all of his medications which are reviewed. Urgent care notes reviewed, patient excellent understanding of his baseline disease and is quite helpful with additional history without access to the [facility] records Differential considered: Worsening pulmonary fibrosis, pulmonary hypertension, acute coronary syndrome, pulmonary embolism, pneumonia, viral syndrome Exam documented above, pertinent findings include: Despite the severity of his pulmonary fibrosis on 15 L he was initially at 88% but as we continued to discuss his concerns he gradually increased up to 98% at rest with the [address] Pulmonary exam is fairly benign. Minor scattered wheeze minor rhonchi no obvious consolidated findings, pneumothorax, I do not suspect pleural effusion. Cardiac exam is unremarkable no significant lower extremity edema Lab Test results independently reviewed as above. Pertinent findings: CBC does not show significant leukocytosis, no significant anemia, platelets appropriate, he does have a light left shift BNP 2650 Troponin 0.074 Lactate 2.2 Creatinine 0.93 Independently reviewed EKG: Sinus rhythm at a rate of 60, significant ST depression. Appears to be a right heart strain pattern and whether this is because of his pulmonary fibrosis possibility of pulmonary embolism still needs to be evaluated Fannienick significant T-wave inversion these 3 V4 V5 along with inferior leads 2 3 and AVF which are new from previous EKGs in 2020, no ST elevation Repeat EKGs shows persistent T-wave inversions without ST elevation Imaging studies independently reviewed: Echocardiogram from 08/21/2023 shows EF of 55-60% subtle hypokinesis in inferior posterior segment as well as septal flattening consistent with right ventricular pressure overload condition appears similar to previous exam. Right ventricle mildly enlarged and [id number] hypokinetic and appears slightly larger unless dynamic compared to previous exam Consultations: DR. Moreno cardiology Treatments: Re-evaluations: Discussion: Patient signed out to me by Dr. Nj I have seen evaluated patient myself. He overall appears well on his 15 L non-rebreather. He has no difficulty speaking. He reports that he does have significant coronary artery disease with 100% blockage in 2 arteries he reports that he is followed by Dr. Moreno cardiology he had a heart catheterization a couple of months ago it was determined that he has good collateral arteries and no further stents were placed. He said he had increasing shortness of breath with exertion for the last couple of weeks yesterday he noticed some chest pain sometimes goes through to his back. He took 2 nitroglycerin at 5:00 p.m. yesterday. However this morning at 5:00 a.m. he sat up on the side of the bed stood up to go to the light switch when he promptly passed out. While resting in the ED he has not having any further chest pain or shortness of breath. He is noted to be mildly hypotensive with blood pressure of 89/57 he reports that his normal blood pressure is 90/50. 9:19 Dr. Moreno cardiology consulted. He is familiar with patient. He reports that patient had a 14 day ZIO patch which showed sinus rhythm with occasional PACs and PVCs. He had 10 episodes lightheadedness chest pain during this time. There was no malignant arrhythmia. 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 Reports that no stress test is needed Ranexa it is possible however with his blood pressure being so difficult to give him medication Long discussion with patient and about options. It is offered that he can be monitored in the hospital he would not get or need a knee other stress test or echocardiogram. However patient would like to go home. They actually have an appointment in meeting with hospice in a couple of days. He is requiring 15 L of oxygen. There was some question due to his high demand of oxygen about his home oxygen status. Respiratory therapy went into evaluate he is being set up with wound care they have enough oxygen home however transporting him back home will require an ambulance. Discharge Plan Departure Patient Disposition: Home Clinical Impression: Syncope, Acute upper respiratory infection Instructions: DI for Syncope in Adults (Fainting) Activity Restrictions/Additional Instructions: *You have been diagnosed with syncope, coronavirus (a common virus, not covid 19) *What to do: At this time if you should experience chest pain or shortness of breath I recommend that you lay down hopes that the chest pain resolves. You may need to talk with Dr. Moreno about starting a new medication called Ranexa. Use 15 L of oxygen at all times. Discussed with hospice of other options You do have some thickening of your esophagus if you choose to investigate further you may need an EGD to rule out any kind of mass *Continue to take medications as directed May continue antibiotics but they may not help your viral infection *Follow up with your primary care provider in 2-3 days or call [phone] *Return to ER if you should have increasing confusion worsening shortness of breath or any new, worsening or concerning symptoms Prescriptions: No Action rosuvastatin 20 mg tablet 20 mg PO DAILY ezetimibe 10 mg tablet 10 mg PO DAILY pirfenidone 267 mg tablet 534 mg PO TID Rx Instructions: administer with food at the same time(s) each day; resume usual dose after stopping ciprofloxacin esomeprazole magnesium 20 mg capsule,delayed release(DR/EC) 20 mg PO DAILY guaifenesin 400 mg tablet 400 mg PO QID cefuroxime axetil 500 mg tablet 500 mg PO BID Referrals: Leigh Mercedes MD [Primary Care Provider] - Stand Alone Forms: Patient Portal/API
[2023-09-27] MEDS: methylPREDNISolone 125 MG/2 ML VIAL IV (06:38)
--- NOTE | 2023-09-27 06:39 | PC.NURSE ---
Pt uses 15 liters NC via concetrator at home. He arrives here today on 15 L via non rebreather.
[2023-09-27 06:47] LABS: Basophils Absolute Auto 0 /uL (0-100); Basophils Percent Auto 0.2 % (0-2); Hemoglobin 14.5 g/dL (13.5-17.5); Neutrophils Absolute Auto 8900 /uL (1500-7000)
[2023-09-27 06:51] LABS: Add Manual Diff / Slide Review NO; Eosinophils Absolute Auto 0 /uL (0-450); Eosinophils Percent Auto 0.5 % (2-4); Hematocrit 43.1 % (41-53); Lymphocytes Absolute Auto 1000 /uL (1100-4500); Lymphocytes Percent Auto 8.9 % (25-40); Mean Corpuscular HGB Conc 33.7 % (30-36); Mean Corpuscular Hemoglobin 34.4 PG (26-34); Mean Corpuscular Volume 102.1 fL (80-100); Monocytes Absolute Auto 700 /uL (0-900); Monocytes Percent Auto 6.6 % (3-14); Neutrophils Percent Auto 83.8 % (50-75); Platelet Count 211 X10^3/uL (150-400); Red Blood Cell Count 4.23 X10^6/uL (4.5-5.9); Red Cell Distribution Width 14.9 % (11.6-14.8); White Blood Cell Count 10.6 X10^3/uL (4.5-11.0)
[2023-09-27 07:00] LABS: Alanine Aminotransferase 90 IU/L (<50); Albumin 3.9 g/dL (3.5-5.0); Albumin Globulin Ratio 1.3 (1.0-2.8); Alkaline Phosphatase 66 U/L (38-126); Aspartate Aminotransferase 52 IU/L (17-59); BUN Creatinine Ratio 20.4 (6-22); Bilirubin Total 0.7 mg/dL (0.2-1.3); Blood Urea Nitrogen 19 mg/dL (9-20); Calcium 9.3 mg/dL (8.4-10.2); Carbon Dioxide 31 mmol/L (22-32); Chloride 105 mmol/L (98-107); Estimated Glomerular Filt Rate > 60 mL/min (>60); Glucose 98 mg/dL (80-110); HEMOLYSIS 33 (0-50); Lactate (Lactic Acid) 2.2 mmol/L (0.7-2.1); Magnesium 2.3 mg/dL (1.6-2.3); Potassium 4.2 mmol/L (3.4-5.1); Sodium 137 mmol/L (137-145); Total Protein 6.9 g/dL (6.3-8.2)
--- NOTE | 2023-09-27 07:03 | PC.NURSE ---
Pts O2 sats drop with little exertion. Came back from DI reattached to monitor at 72% on 15 L NR, then sat in bed for about 1 minute to increase O2 sats to 88% 15 L NR. Returned to 97% NR O2 sat after another minute
[2023-09-27 07:12] LABS: NT-proBNP (BNP-Adult 18+) 2650 pg/mL (<125); Troponin I 0.074 ng/mL (0.01-0.034)
[2023-09-27 07:16] LABS: Procalcitonin 0.06 ng/mL (<0.5)
[2023-09-27 07:28] LABS: Adenovirus Not Detected (Not Detect); B. parapertussis Not Detected (Not Detecte); Bordetella pertussis Not Detected (Not Detect); Chlamydophila pneumoniae Not Detected (Not Detect); Coronavirus 229E Not Detected (Not Detect); Coronavirus HKU1 Not Detected (Not Detect); Coronavirus NL 63 Not Detected (Not Detect); Coronavirus OC43 Detected (Not Detect); Human Metapneumovirus Not Detected (Not Detect); Human Rhinovirus/Enterovirus Not Detected (Not Detect); Influenza A Not Detected (Not Detect); Influenza B Not Detected (Not Detect); Mycoplasma pneumoniae Not Detected (Not Detect); Parainfluenza Virus 1 Not Detected (Not Detect); Parainfluenza Virus 2 Not Detected (Not Detect); Parainfluenza Virus 3 Not Detected (Not Detect); Parainfluenza Virus 4 Not Detected (Not Detect); Respiratory Syncytial Virus Not Detected (Not Detect); SARS- CoV-2 Not Detected (Not Detecte)
[2023-09-27 08:24] LABS: Reflexed Lactate in 2 Hours Y
[2023-09-27 08:36] LABS: Troponin I 0.074 ng/mL (0.01-0.034)
[2023-09-27] MEDS: FUROSEMIDE 40 MG/4 ML VIAL 20 MG IV (08:44)
[2023-09-27 08:52] LABS: Appearance Urine UA CLEAR; Bilirubin Urine UA NEGATIVE (NEGATIVE); Color Urine UA YELLOW; Glucose Urine UA NEGATIVE (Negative); Ketones Urine UA NEGATIVE (NEGATIVE); Leukocyte Esterase Urine UA 1+ (NEGATIVE); Nitrite Urine UA NEGATIVE (Negative); Occult Blood Urine UA NEGATIVE (Negative); Protein Urine UA NEGATIVE (Negative); Urobilinogen Urine UA 0.2 E.U./dL (0.2); pH Urine UA 6.5 (4.5-8.0)
[2023-09-27 08:55] LABS: Urine Volume 10mL (spun)
[2023-09-27 08:56] LABS: Bacteria Urine None Seen; Culture Indicated Urine Specimen Cultured; RBC Urine None Seen (0-5/HPF); Squamous Epithelial Cell Urine 1-5 /HPF (0-5/HPF); WBC Urine 10-30/HPF (0-5/HPF)
[2023-09-27 09:01] LABS: Lactate 2HR (Lactic Acid Rflx) 1.5 mmol/L (0.7-2.1)
== END 2023-09-27 14:53 | disposition home or self-care (01) ==
PROVIDERS: Emergency Medicine; Emergency Provider Emergency Medicine; PCP Internal Medicine
DX: R55 Syncope and collapse (principal); J06.9 Acute upper respiratory infection, unspecified; B34.2 Coronavirus infection, unspecified; R06.00 Dyspnea, unspecified; Z20.822 Contact with and (suspected) exposure to COVID-19
CPT/HCPCS: 36415; 71275; 80053; 81001; 83605; 83735; 83880; 84145; 84484; 85025; 87040; 87086; 87633; 93005; 96374; 96375; 99284; J1940; J2919; Q9967